=== PATIENT | female | born 1990 | race Caucasian/White ===

== ENCOUNTER 2018-10-24 10:25 | Outpatient (CLI) | payer OTHER, SELFPAY ==
[2015-05-11 02:33] VITALS: BMI 33.5
[2018-10-24 10:53] VITALS: BMI 40.6
[2018-10-24] MEDS: Lactated Ringers 1,000 ML 500 ML IV (11:30)
[2018-10-24 11:36] LABS: Hematocrit 33.7 % (37-47); Hemoglobin 11.3 g/dl (12.0-15.0); Mean Corp Hgb Conc 33.5 g/gl (32-36); Mean Corpuscular Hgb 31.6 pg (27.0-32.0); Mean Corpuscular Volume 94.1 fL (81-99); Mean Platelet Vol. 11.8 fl (6.2-12.0); Platelet Count 142 K/mm3 (150-450); Red Blood Count 3.58 M/mm3 (4.2-5.4)
[2018-10-24 11:38] LABS: Scan Indicated on CBC? Y/N NO
[2018-10-24 11:39] LABS: Protein, Urine (Random) 6.6 mg/dL (<11.9); Protein:Creat Ratio 180 mg/g CRE (0-200)
[2018-10-24 11:48] LABS: Prothrombin Time (Protime)PT. 12.9 SECONDS (11.7-14.9)
[2018-10-24] MEDS: Metoclopramide 10 MG/2 ML Vial IV (11:54)
[2018-10-24] MEDS: DiphenhydrAMINE 50 MG/ML Syringe 25 MG IV (11:54)
[2018-10-24 11:55] LABS: AST(SGOT) 15 U/L (15-37); Alanine Aminotransfer ALT/SGPT 16 U/L (13-56); Creatinine, Serum 0.48 mg/dL (0.55-1.02); EST Glomerular Filtration Rate 161 mL/min (>60); Est Glom Filt Rate - Afr Amer 194 mL/min (>60); Estimated Creatinine Clearance 149.33 ml/min
--- NOTE | 2018-10-24 12:48 | OB.TRI.NOTE ---
- Problem List (1) Headache Status: Acute History of Present Illness Date of Service: 10/24/18 Was patient seen by the physician?: Yes Reason For Visit: Headache Date of Service: 10/24/18 Final NSEHA: 12/06/18 Gestational age: 33 Weeks and 6 Days History of Present Illness: Patient is a 28-year-old at 33 weeks gestation who presents from the office with a headache. She states the headache started yesterday. It is bilateral and across her posterior head, and she describes it as a throbbing pain. She has a history of chronic migraines, but she describes this headache as feeling different. The pain has been constant since the headache started yesterday, but the pain has been waxing and waning. She was given Benadryl and Reglan with some improvement in her BROWN, she now rates it a 4/10 and earlier it was a 10/10. She has sensitivity to light with her BROWN. She notes that she had an episode of nausea and vomiting earlier which has now resolved, and after the vomiting she had blurred vision. The blurred vision has now resolved and she denies any vision changes. She denies upper epigastric pain or right upper quadrant pain. No regular contractions, vaginal bleeding, loss of fluid. Good movement. She denies BP issues with her first . She states she has a hx of cHTN, and was on medication years ago for this but has been off of medication recently. Allergies acetaminophen [From Tylenol] Allergy (Verified 09/19/14 18:03) Shortness of breath ethinyl estradiol [From Ortho Tri-Cyclen (28)] Allergy (Verified 09/19/14 18:03) Hives meperidine HCl [From Demerol] Allergy (Verified 09/19/14 18:03) Hives milk Allergy (Verified 09/19/14 18:03) Nausea/Vom/Diarrhea morphine Allergy (Verified 09/19/14 18:03) Hives nitrofurantoin [From Macrobid] Allergy (Verified 09/19/14 18:03) Hives nitrofurantoin macrocrystalline [From Macrobid] Allergy (Verified 09/19/14 18:03) Hives norgestimate [From Ortho Tri-Cyclen (28)] Allergy (Verified 09/19/14 18:03) Hives oxycodone [Oxycodone] Allergy (Verified 09/19/14 18:03) Hives oxycodone HCl [From OxyContin] Allergy (Verified 09/19/14 18:03) Hives Sulfa (Sulfonamide Antibiotics) Allergy (Verified 09/19/14 18:03) Hives - Pertinent Past Medical History Medical History: Past Medical History (Last Updated 10/24/18 @ 20:28 by Scarlet Nagy DO) Anxiety Asthma Depression Migraines Hypertension Surgical History: Past Surgical History (Last Updated 10/24/18 @ 20:28 by Scarlet Nagy DO) H/O LEEP Laboratory Studies: Laboratory Tests 10/24/18 10/24/18 10/24/18 Range/Units 11:15 10:50 10:50 WBC 10.0 (4.4-11.0) K/mm3 RBC 3.58 L (4.2-5.4) M/mm3 Hgb 11.3 L (12.0-15.0) g/dl Hct 33.7 L (37-47) % MCV 94.1 (81-99) fL MCH 31.6 (27.0-32.0) pg MCHC 33.5 (32-36) g/gl RDW 13.0 (11.6-14.6) % RDW Differential 45.0 H (35.1-43.9) fl Plt Count 142 L (150-450) K/mm3 MPV 11.8 (6.2-12.0) fl Creatinine 0.48 L (0.55-1.02) mg/dL Estim Creat Clear Calc 149.33 ml/min Est GFR (MDRD) Af Amer 194 (>60) mL/min Est GFR (MDRD) Non-Af 161 (>60) mL/min Uric Acid 4.0 (2.6-6.0) mg/dL AST 15 (15-37) U/L ALT 16 (13-56) U/L U Random Total Protein 6.6 (<11.9) mg/dL Urine Creatinine 36.70 (NO RANGE EST.) mg/dL Protein/Creatinin Ratio 180 (0-200) mg/g CRE Review of Systems Eyes: Denies: Blurred vision HEENT: Reports: Head Aches Gastrointestinal: Denies: Abdominal Pain, Nausea, Vomiting Neurological: Denies: Blurred vision, Double vision Physical Exam General: No apparent distress, Well developed, Well nourished HEENT: Atraumatic Lungs: - - No increased resp effort Abdomen: Soft, Non Tender, Gravid, - - No RUQ tenderness or epigastric tenderness Extremities:: No edema Neurological: Deep Tendon Reflexes 2+/4 and Symmetrical, Neuro grossly intact. Negative for: Clonus NST - FHR Rate Baby A FHR Category:: Category I Uterine Activity:: No regular ctx's Impression/Plan 33 wk gestation w/ complaint of a BRWON - Pre-e labs WNL except Plt's 142, p/c ratio WNL - BP's normal: 130's/80's - Will give Fioricet x 1 for BROWN. Mild improvement after Benadryl and Reglan. Hx of chronic BROWN's - Has appointment in 2 days. Will recheck BP at that time, and redraw pre-e labs to trend plt's - Collect 24 hr urine protein as well
[2018-10-24 12:52] LABS: Partial Thromboplast Time 26.6 Seconds (24.1-36.2)
[2018-10-24] MEDS: Acetaminophen/Butalbital/Caffe 1 Tablet PO (13:13)
--- OUTSIDE RECORDS SUMMARY | 2018-12-19 19:12 | XMS RPT_ITS ---
:1990 Author Organization OHIP Care Team Providers Name Role Phone SARA REVELES (ANAHI) Attending Unavailable SARA REVELES (OWENM) Referring Unavailable SARA REVELES (ANAHI) Referring Unavailable JUAN ALMENDAREZ Referring Unavailable PRISCILLA MCMILLAN (RD) Attending Unavailable JUAN ALMENDAREZ Referring Unavailable MICHAEL SMYTH (CNM) Attending Unavailable REVELES, SARA (CNM) Attending Unavailable REVELES, SARA (CNM) Referring Unavailable KELLEY, DAISHA A Attending Unavailable REVELES, SARA (CNM) Referring Unavailable REVELES, SARA (CNM) Attending Unavailable REVELES, SARA (CNM) Referring Unavailable REVELES, SARA (CNM) Attending Unavailable REVELES, SARA (CNM) Referring Unavailable KELLEY, DAISHA A Attending Unavailable REVELES, SARA (CNM) Referring Unavailable HAJA, MICHAEL (CNM) Attending Unavailable REVELES, SARA (CNM) Referring Unavailable REVELES, SARA (CNM) Attending Unavailable PODLOGSUE CARUSO (SR ACCOUNT EXECUTIVE) Attending Unavailable REVELES, SARA (CNM) Attending Unavailable REVELES, SARA (CNM) Referring Unavailable REVELES, SARA (CNM) Attending Unavailable REVELES, SARA (CNM) Referring Unavailable NEYHART VIDALES, CANDACE Attending Unavailable NEYPORFIRIOT SOBEIDA CANDACE Referring Unavailable REVELES, SARA (CNM) Attending Unavailable REVELES, SARA (CNM) Attending Unavailable HAJA, MICHAEL (CNM) Attending Unavailable HAJA, MICHAEL (CNM) Attending Unavailable REVELES, SARA (CNM) Attending Unavailable JUAN ALMENDAREZ Attending Unavailable JUAN ALMENDAREZ Referring Unavailable REVELES, SARA (CNM) Attending Unavailable REVELES, SARA (CNM) Attending Unavailable REVELES, SARA (CNM) Referring Unavailable HAJA, MICHAEL (CNM) Attending Unavailable Reveles, Sara Attending Unavailable Reveles, Sara Referring Unavailable Kiet Fagan Primary Care Unavailable Scarlet Nagy Attending Unavailable Scarlet Nagy Referring Unavailable Kiet Fagan Primary Care Unavailable PROVIDER, ED PHYSICIAN Attending Unavailable Kiet Fagan Primary Care Unavailable Abdirizak, Sara Referring Unavailable Kiet Fagan Primary Care Unavailable Dominick Caldwell Admitting Unavailable Dominick Caldwell Attending Unavailable PROBLEMS PROBLEMS DATE TYPE CONDITION / CODE ATTENDING STATUS SOURCE 10/30/2018 Unknown O64.1XX0 - Alejandro, Active [place] Obstructed labor Dominick [facility] due to breech Hospital presentation, not Repository applicable or unspecified / O64.1XX0(ICD-10) 10/30/2018 Unknown R51 - Headache / Reveles, Sara Active [place] R51(ICD-10) [facility] [place] 09/13/2018 Active 28 weeks NA Active [facility] gestation of [place] / Repository Z3A.28(ICD-10) 09/13/2018 Active Dizziness and NA Active [facility] giddiness / [place] R42(ICD-10) Repository 09/12/2018 Active 27 weeks NA Active [facility] gestation of [place] / Repository Z3A.27(ICD-10) 09/12/2018 Active Other specified NA Active [facility] related [place] conditions, third Repository trimester / O26.893(ICD-10) 09/12/2018 Active Headache / NA Active [facility] R51(ICD-10) [place] Repository 08/30/2018 Active 26 weeks NA Active [facility] gestation of [place] / Repository Z3A.26(ICD-10) 05/10/2018 Active 10 weeks SARA REVELES Active [facility] gestation of (CNM) [place] / Repository Z3A.10(ICD-10) 04/19/2018 Active Supervision of NA Active [facility] high risk [place] , Repository unspecified, first trimester / O09.91(ICD-10) 01/05/2018 Active Threatened NA Active [facility] / [place] O20.0(ICD-10) Repository 01/05/2018 Active Unknown / SARA REVELES Active [facility] UNK(Unknown) ([facility]) [place] Repository PROCEDURES PROCEDURES No Procedure Records FoundRESULTS RESULTS PROGRESS Observed: 11/09/2018 Status: COMPLETED Source: [place] 9:40 AM [facility] REPOSITORY HNO ID: [id number] Author: Michael ValdesJil Smyth Service: (none) Author Type: Discharge Specialist Type: Progress Notes Filed: 11/09/2018 3:18 PM Note Text: SUBJECTIVE: 28 year old female presents for 2 week exam. Patient currently taking Labetalol 100mg PO BID for Elevated blood pressure following IOL for severe pre-eclampsia at 34 weeks. Denies BROWN, scotoma, dizziness, or RUQ pain. Reports home monitoring of BPs on wrist cuff = 154/104 today. Outcome: PCS. Date delivered: 10/26/2018. Delivering M.D.: Dominick Caldwell M.D.. Delivered in what hospital? [facility] Lochia: Alba, Normal depression/mood: None Breast/bottle: Pumping. If , do you have any drainage or redness at incision site? No Do you have a fever? No Kelly Spicer Ma OBJECTIVE: Blood Pressures: 140/104, 149/101, 141/96, 144/96. TRUE BP = 145/99 HEENT: CN II-XII intact Neuro: +1/4 reflexes in Rt. LE, +2/4 reflexes in Lt. LE Abdomen: soft, non-tender, no masses, no hepatosplenomegaly and no lymphadenopathy Incision: Healed - no erythema, no pain to palpation PLAN: Consultation with Dr. Alejandro DAVISON re: this patient - will increase PO Labetalol to 100mg PO TID Patient to call over weekend if blood pressures by home monitoring continue to increase. Patient to call office early next week with list of blood pressures. If continued elevation - consider repeat BP nurse's visit to assess in person RTO for 6 week check otherwise I have reviewed and updated past medical and surgical history, medications and allergies. Michael Smyth APRN.CNM CNOV Observed: 11/09/2018 Status: COMPLETED Source: [place] 9:30 AM [facility] REPOSITORY Office Visit (WOOB) KARISSA DE LEON ([id number]) 1990 F Date Time Provider Department 11/09/18 9:30 AM MICHAEL SMYTH (ANAHI) WOOB During your visit today, we recorded the following information about you: Blood pressure Weight 144/96 96.2 kg Michael Smyth APRN.CNM 11/09/2018 3:18 PM Signed SUBJECTIVE: 28 year old female presents for 2 week exam. Patient currently taking Labetalol 100mg PO BID for Elevated blood pressure following IOL for severe pre-eclampsia at 34 weeks. Denies BROWN, scotoma, dizziness, or RUQ pain. Reports home monitoring of BPs on wrist cuff = 154/104 today. Outcome: PCS. Date delivered: 10/26/2018. Delivering M.D.: Dominick Caldwell M.D.. Delivered in what hospital? [facility] Lochia: Alba, Normal depression/mood: None Breast/bottle: Pumping. If , do you have any drainage or redness at incision site? No Do you have a fever? No Kelly Spicer Ma OBJECTIVE: Blood Pressures: 140/104, 149/101, 141/96, 144/96. TRUE BP = 145/99 HEENT: CN II-XII intact Neuro: +1/4 reflexes in Rt. LE, +2/4 reflexes in Lt. LE Abdomen: soft, non-tender, no masses, no hepatosplenomegaly and no lymphadenopathy Incision: Healed - no erythema, no pain to palpation PLAN: Consultation with Dr. Alejandro DAVISON re: this patient - will increase PO Labetalol to 100mg PO TID Patient to call over weekend if blood pressures by home monitoring continue to increase. Patient to call office early next week with list of blood pressures. If continued elevation - consider repeat BP nurse's visit to assess in person RTO for 6 week check otherwise I have reviewed and updated past medical and surgical history, medications and allergies. YANIRA Medrano APRN.CNM 11/09/2018 10:12 AM Signed Increase dose to Labetalol 100mg PO, 3 times daily. Call over weekend if blood pressures increase or if feeling symptomatic Call office early next week with an update on how blood pressures are Anticipate f/u visit at 6 weeks. Referring Provider: SELF [[id number]] Allergies As of Date: 11/09/2018 Noted Allergy Reaction AMOXICILLIN 06/12/2012 4 - Hives DEMEROL (MEPERIDINE (PF)) 06/12/2012 4 - Hives LATEX 07/25/2012 2 - Rash MACROBID (NITROFURANTOIN MONOHYD/*06/12/2012 4 - Hives 11 - Vomiting MORPHINE 06/12/2012 4 - Hives ORTHO TRI-CYCLEN (21) 06/12/2012 4 - Hives OXYCODONE 06/12/2012 4 - Hives SULFA (SULFONAMIDE ANTIBIOTICS) 06/12/2012 4 - Hives IMITREX (SUMATRIPTAN) 05/18/2015 14 - Other: See Comments Comments: Chest pain MILK 06/12/2012 8 - GI Upset 11 - Vomiting Date Reviewed: 11/09/2018 Reviewed by: Kelly Spicer Ma - Fully Assessed Reason for Visit: Care [85] Cmt: Incision check Primary Visit Diagnosis:Post-operative state [Z98.890] Other Visit Diagnosis: hypertension [O16.5] Order(s):labetalol (TRANDATE) 100 mg tabletTake 1 tablet by mouth three times daily.Disp: Rfl: Prescriptions as of 11/09/2018 Sig: ACETAMINOPHEN 500 MG TABLET Take 500 mg by mouth every 8 * IBUPROFEN 200 MG CAPSULE Take by mouth as directed. PROBIOTIC BLEND ORAL Take by mouth. LABETALOL 100 MG TABLET Take 1 tablet by mouth three * CLARITIN ORAL Take by mouth as needed. MAGNESIUM ORAL Take by mouth. VITS,CALCIUM 91-IRON* Take 1 tablet by mouth once d* BREAST PUMP As directed TUMS ORAL Take by mouth as needed. DHA ORAL Take by mouth once daily. OXYCODONE-ACETAMINOPHEN 5 MG-* Take 5-325 tablets by mouth. ORAL Take by mouth once daily. 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 Migraine with aura and without status migrainos*INVALID FOR* Mild intermittent asthma without complication [*INVALID FOR* Depression [F32.9] INVALID FOR* Obesity, Class I, BMI 30-34.9 [E66.9] INVALID FOR* History of depression [Z86.59] INVALID FOR* More... History of loop electrosurgical excision proced*INVALID FOR* More... History of hypertension [Z86.79] INVALID FOR* More... History of asthma [Z87.09] INVALID FOR* More... Family history of arrhythmia [Z82.49] INVALID FOR* More... More... History of spontaneous [Z87.59] INVALID FOR* More... History of therapeutic [Z92.89] INVALID FOR* More... Well adult exam [Z00.00] INVALID FOR* More... Other instructions from your clinician: Increase dose to Labetalol 100mg PO, 3 times daily. Call over weekend if blood pressures increase or if feeling symptomatic Call office early next week with an update on how blood pressures are Anticipate f/u visit at 6 weeks. Prescriptions ordered this encounter Disp Refills Start End LABETALOL 100 MG TABLET 11/09/2018 Class: Med Update Route: ORAL Sig: Take 1 tablet by mouth three times daily. Medications Discontinued During This Encounter labetalol (TRANDATE) 100 mg tablet 1 10/28/2018 11/09/2018 Class: Historical Med Route: ORAL Sig: Take 100 mg by mouth twice daily. Disc: Adjust Sig - Block E-Cancel Disposition: Return in about 4 weeks (around 12/07/2018), or if symptoms worsen or fail to improve. Follow-up and Disposition History Recorded Encounter Status:Closed by MICHAEL SMYTH CNM on 11/09/18 PROGRESS Observed: 10/31/2018 Status: COMPLETED Source: [place] 10:41 AM [facility] REPOSITORY O ID: [id number] Author: Sara Reveles Service: (none) Author Type: Discharge Specialist Type: Progress Notes Filed: 10/31/2018 12:21 PM Note Text: SUBJECTIVE: 28 year old female presents for 5 day visit for BP check. Baby is in the NICU at [facility]. Outcome: PCS. Date delivered: 10/26/2018. Delivering M.D.: Dominick Caldwell M.D.. Delivered in what hospital? [facility] Lochia: Alba, Normal depression/mood: None Breast/bottle: Breast and bottle feeding. If , do you have any drainage or redness at incision site? No Do you have a fever? No Kelly Spicer Ma OBJECTIVE: Abdomen: soft, non-tender, no masses, no hepatosplenomegaly and no lymphadenopathy Incision: Dressing dry and intact, no drainage. Extremities: BLE DTR +2/4, no edema, no clonus PLAN: RTO for evaluation of incision in 1 week and 6 week visit. Remove dressing in 2 days, this will be 7 days after C/S. Continue Labetolala 100mg PO BID. Consulted , reviewed asymptomatic, negative physical exam and current BP 142/92. Ok to continue at current dose. Reviewed Pre-e precautions with patient and when to call. She voiced understanding. I have reviewed and updated past medical and surgical history, medications and allergies. Sara Reveles APRN.CNM CNOV Observed: 10/31/2018 Status: COMPLETED Source: [place] 10:30 AM [facility] REPOSITORY Office Visit (WOOB) KARISSA DE LEON ([id number]) 1990 F Date Time Provider Department 10/31/18 10:30 AM SARA REVELES (ANAHI) WOOB During your visit today, we recorded the following information about you: Blood pressure Weight 142/92 99.8 kg Sara Reveles APRN.CNM 10/31/2018 12:21 PM Signed SUBJECTIVE: 28 year old female presents for 5 day visit for BP check. Baby is in the NICU at [facility]. Outcome: PCS. Date delivered: 10/26/2018. Delivering M.D.: Dominick Caldwell M.D.. Delivered in what hospital? [facility] Lochia: Alba, Normal depression/mood: None Breast/bottle: Breast and bottle feeding. If , do you have any drainage or redness at incision site? No Do you have a fever? No Kelly Spicer Ma OBJECTIVE: Abdomen: soft, non-tender, no masses, no hepatosplenomegaly and no lymphadenopathy Incision: Dressing dry and intact, no drainage. Extremities: BLE DTR +2/4, no edema, no clonus PLAN: RTO for evaluation of incision in 1 week and 6 week visit. Remove dressing in 2 days, this will be 7 days after C/S. Continue Labetolala 100mg PO BID. Consulted , reviewed asymptomatic, negative physical exam and current BP 142/92. Ok to continue at current dose. Reviewed Pre-e precautions with patient and when to call. She voiced understanding. I have reviewed and updated past medical and surgical history, medications and allergies. Sara Reveles APRN.ANAHI Referring Provider: SARA REVELES ([facility]) [[id number]] Allergies As of Date: 10/31/2018 Noted Allergy Reaction AMOXICILLIN 06/12/2012 4 - Hives DEMEROL (MEPERIDINE (PF)) 06/12/2012 4 - Hives LATEX 07/25/2012 2 - Rash MACROBID (NITROFURANTOIN MONOHYD/*06/12/2012 4 - Hives 11 - Vomiting MORPHINE 06/12/2012 4 - Hives ORTHO TRI-CYCLEN (21) 06/12/2012 4 - Hives OXYCODONE 06/12/2012 4 - Hives SULFA (SULFONAMIDE ANTIBIOTICS) 06/12/2012 4 - Hives IMITREX (SUMATRIPTAN) 05/18/2015 14 - Other: See Comments Comments: Chest pain MILK 06/12/2012 8 - GI Upset 11 - Vomiting Date Reviewed: 10/31/2018 Reviewed by: Kelly Spicer Ma - Fully Assessed Reason for Visit: Care [85] Cmt: Incision check Primary Visit Diagnosis:Pre-eclampsia, severe, delivered [O14.10] Other Visit Diagnoses:Single delivery by section [O82] delivery, delivered [O60.10X0] Prescriptions as of 10/31/2018 Sig: IBUPROFEN 200 MG CAPSULE Take by mouth as directed. LABETALOL 100 MG TABLET Take 100 mg by mouth twice da* OXYCODONE-ACETAMINOPHEN 5 MG-* Take 5-325 tablets by mouth. MAGNESIUM ORAL Take by mouth. CLARITIN ORAL Take by mouth as needed. PROBIOTIC BLEND ORAL Take by mouth. VITS,CALCIUM 91-IRON* Take 1 tablet by mouth once d* TUMS ORAL Take by mouth as needed. BREAST PUMP As directed ORAL Take by mouth once daily. DHA ORAL Take by mouth once daily. 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 Migraine with aura and without status migrainos*INVALID FOR* Mild intermittent asthma without complication [*INVALID FOR* Depression [F32.9] INVALID FOR* Obesity, Class I, BMI 30-34.9 [E66.9] INVALID FOR* History of depression [Z86.59] INVALID FOR* More... History of loop electrosurgical excision proced*INVALID FOR* More... History of hypertension [Z86.79] INVALID FOR* More... History of asthma [Z87.09] INVALID FOR* More... Family history of arrhythmia [Z82.49] INVALID FOR* More... More... History of spontaneous [Z87.59] INVALID FOR* More... History of therapeutic [Z92.89] INVALID FOR* More... Well adult exam [Z00.00] INVALID FOR* More... Disposition: Return in about 1 year (around 10/31/2019), or if symptoms worsen or fail to improve, for 1 week incision, 6wk visit. Follow-up and Disposition History Recorded Encounter Status:Closed by SARA REVELES on 10/31/18 PROGRESS Observed: 10/30/2018 Status: COMPLETED Source: [place] 2:48 PM [facility] REPOSITORY HNO ID: [id number] Author: Yamilka Parra LPN Service: (none) Author Type: (none) Type: Progress Notes Filed: 10/30/2018 2:54 PM Note Text: Pt delivered via C/S at [facility] on 10/26/[address] Caldwell and CHIKI. See OB Outcome note. Pt has post op appt 10/31/18. Yamilka Parra LPN HOSP Observed: 10/30/2018 Status: COMPLETED Source: [place] 12:00 AM [facility] REPOSITORY Patient Update (WOOB) KARISSA DE LEON ([id number]) 1990 F Date Time Provider Department 10/30/18 DOMINICK CALDWELL During your visit today, we recorded the following information about you: Yamilka Parra LPN 10/30/2018 2:54 PM Signed Pt delivered via C/S at [facility] on 10/26/[address] Newell. See OB Outcome note. Pt has post op appt 10/31/18. Yamilka Parra LPN Allergies As of Date: 10/30/2018 Noted Allergy Reaction AMOXICILLIN 06/12/2012 4 - Hives DEMEROL (MEPERIDINE (PF)) 06/12/2012 4 - Hives LATEX 07/25/2012 2 - Rash MACROBID (NITROFURANTOIN MONOHYD/*06/12/2012 4 - Hives 11 - Vomiting MORPHINE 06/12/2012 4 - Hives ORTHO TRI-CYCLEN (21) 06/12/2012 4 - Hives OXYCODONE 06/12/2012 4 - Hives SULFA (SULFONAMIDE ANTIBIOTICS) 06/12/2012 4 - Hives IMITREX (SUMATRIPTAN) 05/18/2015 14 - Other: See Comments Comments: Chest pain MILK 06/12/2012 8 - GI Upset 11 - Vomiting Date Reviewed: 10/24/2018 Reviewed by: Kelly Spicer Ma - Fully Assessed Prescriptions as of 10/30/2018 Sig: TUMS ORAL Take by mouth as needed. BREAST PUMP As directed MAGNESIUM ORAL Take by mouth. CLARITIN ORAL Take by mouth as needed. ORAL Take by mouth once daily. DHA ORAL Take by mouth once daily. ACETAMINOPHEN 500 MG TABLET Take 500 mg by mouth every 8 * PROBIOTIC BLEND ORAL Take by mouth. 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 Migraine with aura and without status migrainos*INVALID FOR* Mild intermittent asthma without complication [*INVALID FOR* Depression [F32.9] INVALID FOR* Obesity, Class I, BMI 30-34.9 [E66.9] INVALID FOR* History of depression [Z86.59] INVALID FOR* More... History of loop electrosurgical excision proced*INVALID FOR* More... History of hypertension [Z86.79] INVALID FOR* More... History of asthma [Z87.09] INVALID FOR* More... Family history of arrhythmia [Z82.49] INVALID FOR* More... More... History of spontaneous [Z87.59] INVALID FOR* More... History of therapeutic [Z92.89] INVALID FOR* More... Well adult exam [Z00.00] INVALID FOR* More... Encounter Status:Closed by YAMILKA PARRA LPN on 10/30/18 DISCHARGE SUMMARY Observed: 10/28/2018 Status: F Source: [place] 11:22 AM [facility] REPOSITORY [facility] Medical Records Department [address] [place] [address] Discharge Summary 10/28/18 1121 MR#: [id number] Acct: [id number] Name: KARISSA DE LEON Rep #: [id number] : 1990 28 From: Sara Reveles CNM PCP: Kiet Fagan DO Status: ADM IN Location: [id number] Discharge Date and Diagnosis - Problem List Patient Problems: Active and Suspected Problems (Last Updated 10/24/18 @ 20:28 by Scarlet Nagy DO) Delivery by section for breech presentation (Acute) Hypertension affecting in third trimester (Acute) Loss of peripheral visual field (Acute) Preeclampsia, severe (Acute) Date of Admission: 10/26/18 Date of Discharge: 10/28/18 - Primary Discharge Diagnosis Active and Suspected Problems (Last Updated 10/24/18 @ 20:28 by Scarlet Nagy DO) Delivery by section for breech presentation (Acute) Hypertension affecting in third trimester (Acute) Loss of peripheral visual field (Acute) Preeclampsia, severe (Acute) Hospital Course and Treatment Operations: - - Section Summary of Care Provided: The patient is a 28 year old F [] Patient Problems: Active and Suspected Problems (Last Updated 10/24/18 @ 20:28 by Scarlet Nagy DO) Delivery by section for breech presentation (Acute) Hypertension affecting in third trimester (Acute) Loss of peripheral visual field (Acute) Preeclampsia, severe (Acute) - Physical Exam Vital Signs Temp Pulse Resp BP Pulse Ox 97.4 F L 69 18 150/88 H 97 10/28/18 08:22 10/28/18 11:17 10/28/18 08:22 10/28/18 11:17 10/28/18 08:22 Oxygen Delivery Method Room Air Weight: 233 lb 11.04 oz Body Mass Index (BMI) 40.1 Intake and Output for Last 24 Hours Intake Total 1515 / 1515 1444 / 1444 Output Total 800 / 800 5200 / 5200 600 / 600 Balance 715 / 715 -3756 / -3756 -600 / -600 Microbiology Past 72 Hours 10/26/18 Unknown Group B Streptococcus Culture - Preliminary Genital vaginal Discharge Diet: No Restrictions Discharge Activity: May not drive while taking narcotic pain medications., May Shower May resume sexual activity in: 4-6 weeks Weight Bearing Status: Full weight bearing Call your doctor if your incision/area has: Continuous Slow Oozing, Sudden Increased Bleeding, Increased Pain/ Swelling, Increased Redness, Foul Smelling Discharge, Swelling at the incision site Call your doctor if you observe: Fever of 101 or Higher, Coldness, Increased Pain, Inability to urinate, Inability to have a bowel movement, Using more than one pad per hour, Shortness of breath, Chest pain, Increased palpitations (irregular heartbeat), Calf discomfort, Uncontrolled pain Remove Dressing in (days):: 5 Home Medications: Medications to take at Discharge Vits [Prenatabs FA ] 1 tablet PO DAILY 10/24/18 Labetalol [Trandate (Beta Yudy)] 100 mg PO BID 30 Days #60 tablet 10/28/18 Oxycodone [Oxyir] 5 - 10 mg PO Q4H PRN PRN 7 Days #30 tab 10/28/18 Following Prescrptions Were Given to Patient: Oxycodone [Oxyir] 5 - 10 mg PO Q4H PRN PRN 7 Days #30 tab PRN Reason: Mod-Severe Pain (-09/05) Labetalol [Trandate (Beta Yudy)] 100 mg PO BID 30 Days #60 tablet Primary Care Physician: Kiet Fagan DO [Primary Care Provider] - Please Follow Up With: Dominick Caldwell MD Patient Instructions: After a Medical Necessity - Tobacco Use Smoking Status: Never smoker Meaningful Use Info Meaningful Use Diagnoses (Choose all that apply): None applicable 10/28/18 1122 <Electronically signed by Sara Reveles CNM> Date Sara Reveles CNM Cosigner Signature (if applicable): Date CC: ANAHI Fagan DO Signed DISCHARGE INSTRUCTION Observed: 10/28/2018 Status: F Source: [place] 11:21 AM [facility] REPOSITORY [facility] Medical Records Department [address] [place] [address] Instructions for Home/Discharge Instructions 10/28/18 1118 MR#: [id number] Acct: [id number] Name: KARISSA DE LEON Rep #: [id number] : 1990 28 From: Sara Reveles CNM PCP: Kiet Fagan DO Status: ADM IN Discharge Diet: No Restrictions Discharge Activity: May not drive while taking narcotic pain medications., May Shower May resume sexual activity in: 4-6 weeks Weight Bearing Status: Full weight bearing Lifting Restrictions: less than 20lbs Call your doctor if your incision/area has: Continuous Slow Oozing, Sudden Increased Bleeding, Increased Pain/ Swelling, Increased Redness, Foul Smelling Discharge, Swelling at the incision site Call your doctor if you observe: Fever of 101 or Higher, Coldness, Increased Pain, Inability to urinate, Inability to have a bowel movement, Using more than one pad per hour, Shortness of breath, Chest pain, Increased palpitations (irregular heartbeat), Calf discomfort, Uncontrolled pain Remove Dressing in (days):: 5 Instructions: After a Additional Instructions: If you experience any of the following, contact your healthcare provider. * Bleeding that soaks a pad every hour for 2 hours * Fever 100.4 or higher * Unrelieved incision or abdominal pain * Swelling, redness, discharge or bleeding from your incision or episiotomy site * Your incision begins to separate * Problems urinating (including inability to urinate or burning while urinating). * Visual changes * Severe headache * Flu-like symptoms * Pain or redness in one of both of your breasts * Pain, warmth, tenderness or swelling in your legs, especially the calf area * Frequent nausea and vomiting * Symptoms of depression or anxiety If you experience any of the following, call 911 or go to the nearest Emergency Room. * Chest pain * Problems breathing * Seizure activity * Partial or complete paralysis of a body part, slurred speech, weakness or drooping of the face, or a sudden inability to walk or hold your balance Allergies/Adverse Reactions: Allergies acetaminophen [From Tylenol] Allergy (Verified 10/26/18 11:01) Shortness of breath ethinyl estradiol [From Ortho Tri-Cyclen (28)] Allergy (Verified 10/26/18 11:01) Hives meperidine HCl [From Demerol] Allergy (Verified 10/26/18 11:01) Hives milk Allergy (Verified 10/26/18 11:01) Nausea/Vom/Diarrhea morphine Allergy (Verified 10/26/18 11:01) Hives nitrofurantoin [From Macrobid] Allergy (Verified 10/26/18 11:01) Hives nitrofurantoin macrocrystalline [From Macrobid] Allergy (Verified 10/26/18 11:01) Hives norgestimate [From Ortho Tri-Cyclen (28)] Allergy (Verified 10/26/18 11:01) Hives oxycodone [Oxycodone] Allergy (Verified 10/26/18 11:01) Hives oxycodone HCl [From OxyContin] Allergy (Verified 10/26/18 11:01) Hives Sulfa (Sulfonamide Antibiotics) Allergy (Verified 10/26/18 11:01) Hives Medications to take at Discharge Vits [Prenatabs FA ] 1 tablet PO DAILY 10/24/18 Labetalol [Trandate (Beta Yudy)] 100 mg PO BID 30 Days #60 tablet 10/28/18 Oxycodone [Oxyir] 5 - 10 mg PO Q4H PRN PRN 7 Days #30 tab 10/28/18 The following prescriptions were given: Oxycodone [Oxyir] 5 - 10 mg PO Q4H PRN PRN 7 Days #30 tab PRN Reason: Mod-Severe Pain (4-10/10) Labetalol [Trandate (Beta Yudy)] 100 mg PO BID 30 Days #60 tablet Follow-Up: Call to make an appointment with your doctor for BP check in 3 days, an incision check in 1-2 weeks. You will also need a 6 week post- follow up appointment. Test results from this visit will be discussed in further detail at your follow-up appointment, if applicable. Please Follow Up With: Dominick Caldwell MD Primary Care Physician: Kiet Fagan DO [Primary Care Provider] - 10/28/18 1121 <Electronically signed by Sara Reveles CNM> Date Sara Reveles [facility] CC: Kiet Fagan DO CBC-COMPLETE BLOOD CNT Collected: 10/27/2018 Status: F Source: [place] NO DIFF 5:15 AM [facility] REPOSITORY Order Comment: Comments: Day #1 Reason for Laboratory Test TYPE CODE TESTS RESULT OUT OF RANGE REFERENCE UNITS LAB L100.1000 4.4-11.0 K/mm3 High WBC 20.6 LAB L100.1200 4.2-5.4 M/mm3 Low RBC 3.08 LAB L100.1300 12.0-15.0 g/dl Low HGB 10.1 LAB L100.1400 37-47 % Low HCT 29.9 LAB L100.1500 81-99 fL Normal MCV 97.1 LAB L100.1600 27.0-32.0 pg High MCH 32.8 LAB L100.1700 32-36 g/gl Normal MCHC 33.8 LAB L100.1810 11.6-14.6 % Normal RDW CV 12.9 LAB L100.1820 35.1-43.9 fl Normal RDW SD 43.1 LAB L100.1900 150-450 K/mm3 Normal PLT 162 LAB L100.2000 6.2-12.0 fl Normal MPV 11.4 Performed By: #### L100.0500 #### [facility] [address] [place], [address] OPERATIVE REPORT Observed: 10/26/2018 Status: F Source: [place] 7:42 PM [facility] REPOSITORY [facility] Medical Records Department [address] [place] [address] Operative Report 10/26/18 1937 MR#: [id number] Acct: [id number] Name: KARISSA DE LEON Rep #: [id number] : 1990 28 From: Dominick Caldwell MD PCP: Kiet Fagan DO Status: ADM IN Location: [id number] Delivery Classification: DAVID Final SNEHA: 12/06/18 Gestational age: 34 Weeks and 1 Days Indications for : Breech, - - Preeclampsia with severe features Description of Procedure: Preoperative diagnosis: 34-week intrauterine , breech presentation, preeclampsia with severe features Postoperative diagnoses: Same Surgeon: Dominick Caldwell MD Hand Woodworking Sander:Iman MONET Anesthesia- Spinal- Iman Grossman MD complications- None The patient was taken to the operating room. She was prepped and draped in the dorsal supine position with a leftward tilt. A Pfannenstiel skin incision was made approximately 2 cm above the symphysis pubis and carried through to underlying layer fascia with the scalpel. The fascia was incised incised in the midline and extended laterally with the Haines scissors. The fascia was dissected off the rectus muscles with blunt and sharp dissection. The rectus muscles were in the midline and the peritoneum was entered sharply. The peritoneal incision was stretched and the bladder blade was placed. The uterine incision was made in a low transverse fashion with the scalpel and extended superiorly and inferiorly with blunt dissection. The amniotic membranes were ruptured bluntly and clear amniotic fluid returned. The 's breech was brought to the incision and delivered. The was turned to back up and the legs were swept out individually and then the arms. The head was then delivered in a flexed position with fundal pressure in the standard fashion very easily and in less than 15 seconds without difficulty. The loose nuchal cord was then reduced. The mouth and nares were bulb suctioned. The cord was clamped and cut as the infant was stimulated. Cord clamping was delayed. The infant was handed off to the waiting nursing staff. The placenta was delivered with fundal massage and gentle traction in the standard fashion. The uterus was exteriorized and cleared of all clots and debris. The cervix was dilated with a ring forcep. The uterine incision was closed with #1 Vicryl in a running locked fashion. A second layer of the same suture was used in an imbricating fashion. The incision was examined and was found to be hemostatic. The uterus was placed back into the peritoneal cavity and hemostasis was again confirmed. The rectus muscles were examined and any bleeding was Bovie cauterized. The parietal peritoneum was closed with 3-0 Vicryl suture. The rectus muscles were closed with an 0 Vicryl running suture. The surgical teams outer gloves were then changed. The rectus fascia was examined and any bleeding was Bovie cauterized and the rectus fascia was closed with #1 PDS suture in a running standard fashion. The subcutaneous tissue was examining and any bleeding was Bovie cauterized. The subcutaneous tissue was reapproximated with 3-0 Vicryl suture. The skin was closed in a subcuticular fashion with Monocryl suture. I performed the entire procedure with assistance. All sponge, lap, and needle counts were correct. The patient was taken to her room for recovery in a stable condition. Amniotic Membrane Rupture Type: Artificial Amniotic Fluid Description: Clear Placenta Disposition: Sent with transport team Drain: [place] to straight drain Fluids Replaced: LR Cord Entanglement: Around neck x 1, loose Nuchal Cord Compression: Without compression Cord Vessel Description: 3 Vessels Esitmated Blood Loss (ml): 600 Infant Gender: Female (1 minute): 8 (5 minute): 8 Delayed cord clamping: Yes Pre-op Antibiotic Given: Ancef 2 grams IV x1 Complications: None - Admit VTE Documentation VTE Present on Admission: No VTE Mechan Device Prophylaxis: SCD's VTE Pharm Prophylaxis ordered?: Yes 10/26/181941 <Electronically signed by Dominick Caldwell MD> Date Dominick Caldwell MD CC: ANAHI Reveles; Kiet Fagan DO; Dominick Caldwell MD Signed HISTORY AND PHYSICAL Observed: 10/26/2018 Status: F Source: [place] EXAM 6:26 PM [facility] REPOSITORY [facility] Medical Records Department [address] [place] [address] History and Physical 10/26/18 1816 MR#: [id number] Acct: [id number] Name: KARISSA DE LEON Rep #: [id number] : 1990 28 From: Dominick Caldwell MD PCP: Kiet Fagan DO Status: ADM IN Y Location: IC563-4 History Date of Admission: 10/26/18 Final SNEHA: 12/06/18 Final SNEHA Source: US <20 weeks Gestational age: 34 Weeks and 1 Days History of this : This is a 28 year-old, G [], P [], at 34 weeks gestational age. Medical History: Medical History (Last Updated 10/24/18 @ 20:28 by Scarlet Nagy DO) Anxiety F41.9 Asthma J45.909 Depression F32.9 Migraines G43.909 Hypertension I10 Surgical History: Surgical History (Last Updated 10/24/18 @ 20:28 by Scarlet Nagy DO) H/O LEEP Z98.890 Allergies acetaminophen [From Tylenol] Allergy (Verified 10/26/18 11:01) Shortness of breath ethinyl estradiol [From Ortho Tri-Cyclen (28)] Allergy (Verified 10/26/18 11:01) Hives meperidine HCl [From Demerol] Allergy (Verified 10/26/18 11:01) Hives milk Allergy (Verified 10/26/18 11:01) Nausea/Vom/Diarrhea morphine Allergy (Verified 10/26/18 11:01) Hives nitrofurantoin [From Macrobid] Allergy (Verified 10/26/18 11:01) Hives nitrofurantoin macrocrystalline [From Macrobid] Allergy (Verified 10/26/18 11:01) Hives norgestimate [From Ortho Tri-Cyclen (28)] Allergy (Verified 10/26/18 11:01) Hives oxycodone [Oxycodone] Allergy (Verified 10/26/18 11:01) Hives oxycodone HCl [From OxyContin] Allergy (Verified 10/26/18 11:01) Hives Sulfa (Sulfonamide Antibiotics) Allergy (Verified 10/26/18 11:01) Hives Home Medications: Home Medications Aspirin [Aspirin, Baby] 81 mg PO DAILY@0800 10/24/18 Loratadine/Pseudo 240/10 [Claritin-D 24 Hr] 1 tablet PO DAILY 10/24/18 Magnesium Oxide [Magnesium] 400 mg PO DAILY 10/24/18 Vits [Prenatabs FA] 1 tablet PO DAILY 10/24/18 Smoking Status: Never smoker Alcohol: None Substance Use Type: Alcohol Number of Fetus(es): 1 Heart Tracing: Normal baseline, moderate variability, some accelerations. No recurrent decelerations TOCO Analysis: No regular contractions History Past Pregnancies: Past Pregnancies Delivery Name GA/Weeks Outcome Route WeiInfant GeLabor LenAnesthesiDelivery Provider FOB Date ght [facility]der [facility] a Location Review of Systems Constitutional: Denies: Chills, Fever Eyes: Denies: Blurred vision HEENT: Denies: Difficulty Hearing Cardiovascular: Reports: Edema. Denies: Chest Pain, Chest Pressure, Chest Tightness Respiratory: Denies: Shortness of Breath Gastrointestinal: Denies: Abdominal Pain Genitourinary: Denies: Dysuria Skin: Denies: Rash Neurological: Reports: Headaches - Severe x 4 days, worse this am to the point she came to ED. Better after dilauded but now back and so severe she is shaking., - - + for change in vision Physical Exam General: Alert, Cooperative, - - uncomfortable HEENT: PERRLA Cardiovascular: Regular rate Lungs: Clear to auscultation, Normal air movement Abdomen: Soft, Non Tender, Gravid, Appropriate for Gestational Age Extremities:: Deep tendon reflexes - 4+, 4 beats of clonus, Other - edema 2+ LE Estimated gestational size: Appropriate for gestational size Presentation: Cephalic Assessment/Plan All Active Problems (Last Updated 10/24/18 @ 20:28 by Scarlet Nagy DO) Headache (Acute) Hypertension affecting in third trimester (Acute) Loss of peripheral visual field (Acute) This is a 28 year-old, @ 34 1/7 weeks gestation w/ preeclampsia w/ severe features On magnesium Upon presentation in the ER, there was a question as to whether her pressures were reaction to the anxiety and pain from her headache and she was having an atypical migraine or an acute neurological issue. However, her CAT scan is negative for acute intracranial issues. Her blood pressures remain persistently elevated even after treatment of her headache. She was initiated on magnesium prophylaxis for diagnosis of preeclampsia with severe features. Her laboratory studies are normal and stable other than some mild thrombocytopenia. At this point, her reflexes have gotten more hyperreflexic and she has significant clonus. In addition, her headache has rebounded and is as bad or worse than it was before the IV Dilaudid. In addition, her blood pressure is labile. A brief ultrasound was done which reveals that the fetus is breech. I discussed with her and her partner risk benefits and alternatives to attempted external cephalic version and induction of labor versus primary section. With the severity of her symptoms, I recommended expediting delivery. In addition we discussed that if she had a version and then induction, that the fetus did not tolerate prolonged induction. In addition, there is a chance that the fetus can convert back to breech. After this discussion, patient desires section. Consent was signed. Anesthesia is aware of the situation. At this point her blood pressures are stable enough she does not need any IV antihypertensives, but will need to follow this and likely be on oral antihypertensive postoperatively. Continue magnesium prophylaxis postoperatively. Special care nursery team was alerted. Patient did receive 1 dose of betamethasone earlier today. 10/26/18 1826 <Electronically signed by Dominick Caldwell MD> Date Dominick Caldwell MD Cosigner Signature: Date (if applicable) CC: Kiet Fagan DO; Dominick Caldwell MD Signed CBC-COMPLETE BLOOD CNT Collected: 10/26/2018 Status: F Source: [place] NO DIFF 4:49 PM [facility] REPOSITORY TYPE CODE TESTS RESULT OUT OF RANGE REFERENCE UNITS LAB L100.1000 4.4-11.0 K/mm3 High WBC 13.2 LAB L100.1200 4.2-5.4 M/mm3 Low RBC 3.47 LAB L100.1300 12.0-15.0 g/dl Low HGB 11.0 LAB L100.1400 37-47 % Low HCT 33.0 LAB L100.1500 81-99 fL Normal MCV 95.1 LAB L100.1600 27.0-32.0 pg Normal MCH 31.7 LAB L100.1700 32-36 g/gl Normal MCHC 33.3 LAB L100.1810 11.6-14.6 % Normal RDW CV 13.3 LAB L100.1820 35.1-43.9 fl High RDW SD 45.6 LAB L100.1900 150-450 K/mm3 Low PLT 136 LAB L100.2000 6.2-12.0 fl Normal MPV 11.7 Performed By: #### L100.0500 #### [facility] [address] [place], [place], [address] GROUP B STREP DNA Collected: 10/26/2018 Status: F Source: [place] BY PCR 3:55 PM [facility] REPOSITORY TYPE CODE TESTS RESULT OUT OF RANGE REFERENCE UNITS LAB L8200.0100 Negative Normal GBS TEST Negative RESULT Performed By: #### L8200.0000 #### [facility] [address] [place], [address] TYPE AND SCREEN Collected: 10/26/2018 Status: F Source: [place] 2:10 PM [facility] REPOSITORY Order Comment: Reason for Type AND Screen/Red Cells: ROUTINE TYPE CODE TESTS RESULT OUT OF RANGE REFERENCE UNITS LAB B10.0800 A Normal BLOOD TYPE GEL POSITIVE LAB B100.4000 Normal Antibody NEGATIVE Screen Performed By: #### B101.7450 #### [facility] [address] [facility] [place], [place], [address] BRAIN/HEAD WITHOUT Observed: 10/26/2018 Status: F Source: [place] CONTRAST 1:47 PM [facility] REPOSITORY [facility] Imaging Services [address] [place] [address] Brain/Head without Contrast MR#: [id number] Acct: [id number] Name: KARISSA DE LEON Rep #: [id number] : 1990 F 28 From: Jerilyn Pérez MD PCP: Kiet Fagan DO Status: ADM IN Study: Brain/Head without Contrast Date of Exam: 10/26/18 Exam# [id number] Ordering Dr: Dominick Caldwell MD STUDY: CT BRAIN WITHOUT CONTRAST REASON FOR EXAM: Female, 28 years old. Headache RADIATION DOSAGE (If Supplied By Facility): CTDIvol = ( 16.81 ) mGy, DLP = ( 975.86 ) mGycm TECHNIQUE: Transaxial CT imaging of the brain was performed without administration of intravenous contrast material. Individualized dose optimization techniques were used for this CT. COMPARISON: None. FINDINGS: The soft tissues are unremarkable. The osseous structures are unremarkable. Normal size ventricles and extra-axial spaces for the patient's age. The white matter tracts are unremarkable. The basal ganglia and thalami are unremarkable. No abnormalities are seen in the brainstem. The cerebellum is unremarkable. There is no intracranial hemorrhage. There are no findings of acute ischemia. The visualized sinuses are unremarkable. CT/Brain/Head without Contrast IMPRESSION: No acute intracranial abnormalities. Electronically Signed: Jerilyn Pérez MD at 17:14 EST Tel Direct: [phone], Service support , CC: Kiet Fagan DO; Dominick Caldwell MD Rn Surgical: Signed CBC-COMPLETE BLOOD CNT Collected: 10/26/2018 Status: F Source: [place] NO DIFF 12:25 PM [facility] REPOSITORY TYPE CODE TESTS RESULT OUT OF RANGE REFERENCE UNITS LAB L100.1000 4.4-11.0 K/mm3 High WBC 11.4 LAB L100.1200 4.2-5.4 M/mm3 Low RBC 3.65 LAB L100.1300 12.0-15.0 g/dl Low HGB 11.8 LAB L100.1400 37-47 % Low HCT 34.9 LAB L100.1500 81-99 fL Normal MCV 95.6 LAB L100.1600 27.0-32.0 pg High MCH 32.3 LAB L100.1700 32-36 g/gl Normal MCHC 33.8 LAB L100.1810 11.6-14.6 % Normal RDW CV 13.0 LAB L100.1820 35.1-43.9 fl Normal RDW SD 43.1 LAB L100.1900 150-450 K/mm3 Low PLT 135 LAB L100.2000 6.2-12.0 fl Normal MPV 11.9 Performed By: #### L100.0500, L501.1105, L501.1400, L501.4100, L501.4405 #### [facility] [address] [place], [address] SERUM CREATININE AND Collected: 10/26/2018 Status: F Source: [place] GFR 12:25 PM [facility] REPOSITORY TYPE CODE TESTS RESULT OUT OF RANGE REFERENCE UNITS LAB L501.1100 0.55-1.02 mg/dL Low 0.42 CREAT,SERUM Result Comment: The validity of the calculated GFR AND GFRAA in patients over 70 years has not been determined. Clinical correlation is essential. LAB L501.1110 >60 mL/min Normal EST GFR 189 Result Comment: Non- GFR Calc LAB L501.1115 >60 mL/min Normal EST GFR - AA 228 Result Comment: GFR Calc LAB L501.1255 ml/min Normal Estimated CRCL 170.67 Performed By: #### L100.0500, L501.1105, L501.1400, L501.4100, L501.4405 #### [facility] [address] [place], [place], [address] URIC ACID Collected: 10/26/2018 Status: F Source: [place] 12:25 PM [facility] REPOSITORY TYPE CODE TESTS RESULT OUT OF RANGE REFERENCE UNITS LAB L501.1400 2.6-6.0 mg/dL Normal URIC 3.8 Result Comment: The drugs N-Acetylcysteine and Metamizole may falsely depress this assay. Performed By: #### L100.0500, L501.1105, L501.1400, L501.4100, L501.4405 #### [facility] [address] [place], [place], [id number] AST(SGOT) Collected: 10/26/2018 Status: F Source: [place] 12:25 PM [facility] REPOSITORY TYPE CODE TESTS RESULT OUT OF RANGE REFERENCE UNITS LAB L501.4100 15-37 U/L Normal AST 18 Performed By: #### L100.0500, L501.1105, L501.1400, L501.4100, L501.4405 #### [facility] [address] [place], [address] ALANINE AMINOTRANSFERAS Collected: 10/26/2018 Status: F Source: [place] (SGPT) 12:25 PM [facility] REPOSITORY TYPE CODE TESTS RESULT OUT OF RANGE REFERENCE UNITS LAB L501.4405 13-56 U/L Normal ALT 19 Performed By: #### L100.0500, L501.1105, L501.1400, L501.4100, L501.4405 #### [facility] [address] [place], [address] PROTHROMBIN TIME W/INR Collected: 10/26/2018 Status: F Source: [place] 12:25 PM [facility] REPOSITORY TYPE CODE TESTS RESULT OUT OF RANGE REFERENCE UNITS LAB L300.4150 11.7-14.9 SECONDS Normal PROTIME 12.8 LAB L300.4200 Normal INR 1.0 Performed By: #### L300.3900, L300.4310 #### [facility] [address] [place], [address] PARTIAL THROMBOPLAST Collected: 10/26/2018 Status: F Source: [place] TIME 12:25 PM [facility] REPOSITORY TYPE CODE TESTS RESULT OUT OF RANGE REFERENCE UNITS LAB L300.4310 24.1-36.2 Seconds Normal PTT 24.8 Performed By: #### L300.3900, L300.4310 #### [facility] [address] [place], [address] PROTEIN+CREATININE Collected: Status: F Source: [place] RATIO,URINE 10/26/2018 12:17 PM [facility] REPOSITORY TYPE CODE TESTS RESULT OUT OF RANGE REFERENCE UNITS LAB L501.1200 NO RANGE EST. mg/dL Normal UR CREAT 30.30 LAB L501.1930 <11.9 mg/dL Normal 7.3 PROTEIN,UR.R AN. LAB L501.1940 0-200 mg/g CRE High PROT:CRE 241 RATIO Performed By: #### L501.0900 #### [facility] [address] [place], [address] Observed: 10/26/2018 Status: F Source: [place] CULTURE, GROUP B 12:00 AM [facility] STREPTOCOCCUS REPOSITORY RUBEN Culture Group B Beta Streptococcus is not isolated. Performed By: #### M100.1800 #### [facility] [address] [place], [address] PROTEIN, URINE 24HR Collected: 10/25/2018 Status: F Source: [place] 12:02 PM [facility] REPOSITORY TYPE CODE TESTS RESULT OUT OF RANGE REFERENCE UNITS LAB L501.1850 24.0 HOURS 24.0 Normal UR COLLECT TIME LAB L501.1875 mL 4100 Normal UR TOTAL VOLUME LAB L501.1900 <11.9 mg/dL < 6.0 Normal URINE PROTEIN LAB L501.1925 <150 MG/24HR mg/24HR Test Normal 24hr UR not performed PROTEIN Performed By: #### L500.9000, L502.000 #### [facility] [address] [facility] [id number] 24 HR URINE CREATININE Collected: 10/25/2018 Status: F Source: [place] 12:02 PM [facility] REPOSITORY TYPE CODE TESTS RESULT OUT OF RANGE REFERENCE UNITS LAB L502.0100 24.0 HOURS Normal UR COLLECT 24.0 TIME LAB L502.0200 L Normal UR TOTAL 4.10 VOLUME LAB L502.0300 NO RANGE EST. mg/dL Normal URINE CREAT 35.60 LAB L502.0400 0.70-1.90 g/24 HR Normal UR.CREAT/24hr 1.46 Performed By: #### L500.9000, L502.000 #### [facility] [address] [facility] [id number] PROTEIN+CREATININE Collected: Status: F Source: [place] RATIO,URINE 10/24/2018 11:15 AM [facility] REPOSITORY TYPE CODE TESTS RESULT OUT OF RANGE REFERENCE UNITS LAB L501.1200 NO RANGE EST. mg/dL Normal UR CREAT 36.70 LAB L501.1930 <11.9 mg/dL Normal 6.6 PROTEIN,UR.R AN. LAB L501.1940 0-200 mg/g CRE Normal PROT:CRE 180 RATIO Performed By: #### L501.0900 #### [facility] [address] [facility] [id number] CBC-COMPLETE BLOOD CNT Collected: 10/24/2018 Status: F Source: [place] NO DIFF 10:50 AM [facility] REPOSITORY TYPE CODE TESTS RESULT OUT OF RANGE REFERENCE UNITS LAB L100.1000 4.4-11.0 K/mm3 Normal WBC 10.0 LAB L100.1200 4.2-5.4 M/mm3 Low RBC 3.58 LAB L100.1300 12.0-15.0 g/dl Low HGB 11.3 LAB L100.1400 37-47 % Low HCT 33.7 LAB L100.1500 81-99 fL Normal MCV 94.1 LAB L100.1600 27.0-32.0 pg Normal MCH 31.6 LAB L100.1700 32-36 g/gl Normal MCHC 33.5 LAB L100.1810 11.6-14.6 % Normal RDW CV 13.0 LAB L100.1820 35.1-43.9 fl High RDW SD 45.0 LAB L100.1900 150-450 K/mm3 Low PLT 142 LAB L100.2000 6.2-12.0 fl Normal MPV 11.8 Performed By: #### L100.0500 #### [facility] [address] [place], [place], [id number] SERUM CREATININE AND Collected: 10/24/2018 Status: F Source: [place] GFR 10:50 AM [facility] REPOSITORY TYPE CODE TESTS RESULT OUT OF RANGE REFERENCE UNITS LAB L501.1100 0.55-1.02 mg/dL Low 0.48 CREAT,SERUM Result Comment: The validity of the calculated GFR AND GFRAA in patients over 70 years has not been determined. Clinical correlation is essential. LAB L501.1110 >60 mL/min Normal EST GFR 161 Result Comment: Non- GFR Calc LAB L501.1115 >60 mL/min Normal EST GFR - AA 194 Result Comment: GFR Calc LAB L501.1255 ml/min Normal Estimated CRCL 149.33 Performed By: #### L501.1105, L501.1400, L501.4100, L501.4405, L300.3900, L300.4310 #### [facility] [address] [place], [place], [id number] URIC ACID Collected: 10/24/2018 Status: F Source: [place] 10:50 AM [facility] REPOSITORY TYPE CODE TESTS RESULT OUT OF RANGE REFERENCE UNITS LAB L501.1400 2.6-6.0 mg/dL Normal URIC 4.0 Result Comment: The drugs N-Acetylcysteine and Metamizole may falsely depress this assay. Performed By: #### L501.1105, L501.1400, L501.4100, L501.4405, L300.3900, L300.4310 #### [facility] [address] [place], [address] AST(SGOT) Collected: 10/24/2018 Status: F Source: [place] 10:50 AM [facility] REPOSITORY TYPE CODE TESTS RESULT OUT OF RANGE REFERENCE UNITS LAB L501.4100 15-37 U/L Normal AST 15 Performed By: #### L501.1105, L501.1400, L501.4100, L501.4405, L300.3900, L300.4310 #### [facility] [address] [place], [place], [id number] ALANINE AMINOTRANSFERAS Collected: 10/24/2018 Status: F Source: [place] (SGPT) 10:50 AM [facility] REPOSITORY TYPE CODE TESTS RESULT OUT OF RANGE REFERENCE UNITS LAB L501.4405 13-56 U/L Normal ALT 16 Performed By: #### L501.1105, L501.1400, L501.4100, L501.4405, L300.3900, L300.4310 #### [facility] [address] [place], [place], [address] PROTHROMBIN TIME W/INR Collected: 10/24/2018 Status: F Source: [place] 10:50 AM [facility] REPOSITORY TYPE CODE TESTS RESULT OUT OF RANGE REFERENCE UNITS LAB L300.4150 11.7-14.9 SECONDS Normal PROTIME 12.9 LAB L300.4200 Normal INR 1.0 Performed By: #### L501.1105, L501.1400, L501.4100, L501.4405, L300.3900, L300.4310 #### [facility] [address] [place], [place], [id number] PARTIAL THROMBOPLAST Collected: 10/24/2018 Status: F Source: [place] TIME 10:50 AM [facility] REPOSITORY TYPE CODE TESTS RESULT OUT OF RANGE REFERENCE UNITS LAB L300.4310 24.1-36.2 Seconds Normal PTT 26.6 Performed By: #### L501.1105, L501.1400, L501.4100, L501.4405, L300.3900, L300.4310 #### [facility] [address] [place], [address] PROGRESS Observed: 10/15/2018 Status: COMPLETED Source: [place] 3:54 PM [facility] REPOSITORY HNO ID: [id number] Author: Juan Almendarez Service: (none) Author Type: Physician Type: Progress Notes Filed: 10/15/2018 5:29 PM Note Text: Chief Complaint Patient presents with: Physical HPI Karissa De Leon is a 28 year old female who presents here today for WAE. Patient currently 33 weeks gestational age. No problems with the . Past medical history, appointments, medications, allergies reviewed. Previous Medical History PAST MEDICAL HISTORY Diagnosis Date - Abnormal Pap smear of cervix - anxiety/depression - Asthma - Cervical high risk HPV (human papillomavirus) test positive 2007 ongoing - Hypertension 2014 - Latex allergy - Moderate dysplasia of cervix 2011 Mild dysplasia 2008 - Multiple drug allergies - PONV (postoperative nausea and vomiting) - Scarlet fever 1990 - Scoliosis - TMJ (dislocation of temporomandibular joint) Previous Surgical History PAST SURGICAL HISTORY Procedure Laterality Date - CERVIX UTERI CONIZA LP ELCTRO EXCI 08/09/12 LEEP-Cervix - COLPOSCOPY (VAGINOSCOPY) 2011; 2008; 2009 Colposcopy - DANDC, DIAG AND/OR THERAPEUTIC Dilation AND curettage - HAND/FINGER SURGERY UNLISTED 2008 trigger finger released left hand-ring finger Family History FAMILY HISTORY Problem Relation Age of Onset - Asthma Mother - Psychiatry Mother manic depression, bipolar - Coronary Artery Disease Mother 51 - Alcohol/Drug Mother alcoholic - Diabetes Mother - Cancer Maternal Grandmother skin - Cancer Maternal Grandfather bladder - Alcohol/Drug Paternal Grandfather ETOH - Heart Paternal Grandfather - Heart Sister mur mur - Alcohol/Drug Sister alcoholic Patient Allergies ALLERGIES Allergen Reactions - Amoxicillin Hives - Demerol [Meperidine* Hives - Latex Rash - Macrobid [Nitrofura* Hives, Vomiting - Morphine Hives - Ortho Tri-Cyclen (2* Hives - Oxycodone Hives - Sulfa (Sulfonamide * Hives - Imitrex [Sumatripta* Other: See Comments Chest pain - Milk GI Upset, Vomiting Current Medications Current Outpatient Prescriptions on File Prior to Visit: Breast Pump Device As directed MAGNESIUM ORAL Take by mouth. loratadine (CLARITIN ORAL) Take by mouth as needed. PNV no.95/ferrous fum/folic ac ( ORAL) Take by mouth once daily. docosahexanoic acid (DHA ORAL) Take by mouth once daily. acetaminophen (TYLENOL EXTRA STRENGTH) 500 mg tablet Take 500 mg by mouth every 8 hours as needed. L.acid/L.casei/B.bif/B.maggi/FOS (PROBIOTIC BLEND ORAL) Take by mouth. vit 80-elxw-mlnhr-dha ( + DHA) 28 mg iron- 975 mcg-200 mg cmpk Take 1 tablet by mouth once daily. No current facility-administered medications on file prior to visit. 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 [employer] Social History Main Topics Smoking status: Never Smoker Smokeless tobacco: Current User Types: Chew Alcohol use: Yes Comment: seldom 1 per 6 months, not while Drug use: No Sexual activity: Yes Partners with: Male control/protection: Condom Review of Symptoms REVIEW OF SYSTEMS GENERAL: No weight loss, malaise or fevers HEENT: Negative for frequent or significant headaches, significant change in vision, significant vision problems, significant ear problems or hearing loss, nasal discharge, or nose bleeds, sore throat, difficulty swallowing, mouth lesions, hoarseness NECK: Negative for lumps, goiter, pain and significant neck swelling RESPIRATORY: Negative for cough, hemoptysis, wheezing, COPD, dyspnea or shortness of breath CARDIOVASCULAR: Negative for chest pain, leg swelling, hypertension, CHF or palpitations GI: No nausea, vomiting, or diarrhea. Gets daily heartburn or reflux symptoms if eats too much and taking alcon's helps. : No history of dysuria or blood MUSCULOSKELETAL: has pain in the left hip area from child's position SKIN: Negative for lesions, rash, and itching PSYCH: Negative for sleep disturbance, mood disorder and recent psychosocial stressors HEMATOLOGY/LYMPHOLOGY: Negative for prolonged bleeding, bruising easily or swollen nodes ENDOCRINE: Negative for cold or heat intolerance, polydipsia and goiter. Has been thirsty but sugar test ws normal. NEURO: No history of headaches, syncope, paralysis, seizures or tremors EXAM: BP 126/80 (BP Site: Left Arm, BP Position: Sitting, BP Cuff Size: Large Adult) Pulse 78 Temp 37 ?C (98.6 ?F) (Left Tympanic) Resp 18 Wt 106.1 kg (234 lb) LMP 02/22/2018 (Exact Date) BMI 40.17 kg/m? General Appearance: Well appearing, alert, in no acute distress, well-hydrated, well nourished.. Skin: Skin color, texture, turgor normal, no suspicious rashes or lesions. Head: Normocephalic, no masses, lesions, tenderness or abnormalities. Eyes: Anicteric sclera. Pupils are equally round and reactive to light. Extraocular movements are intact. . Ears: External ears normal, canals clear. Nose/Sinuses: Nares normal, septum midline, mucosa normal, no drainage or sinus tenderness. Oropharynx: Lips, mucosa, and tongue normal, teeth and gums normal, oropharynx normal. Neck: Supple, no adenopathy; thyroid symmetric, normal size, no bruits. Lungs: lungs clear to auscultation. No wheezing, rhonchi, rales. Heart: RRR without murmur, gallop, or rubs. No ectopy. Abdomen: Normal abdominal exam, Abdomen soft, non-tender. Bowel sounds normal. No masses, organomegaly. Extremities: No deformities, edema, skin discoloration. Musculoskeletal: Spine range of motion normal. Muscular strength intact, No joint swelling, deformity, or tenderness. Peripheral Pulses: Normal. Neurologic: Gait normal. Sensation to light touch and nc 2-12 intact.. Health Maintenance List ANNUAL PCP TEAM CHRONIC DISEASE VISIT due on 08/28/2019 PAP EVERY 3 YEARS (21-30 YEAR OLDS) due on 04/19/2021 DTAP,TDAP,TD(2 - Td) due on 05/06/2021 INFLUENZA Completed Data reviewed Component Latest Ref Rng AND Units 09/13/2018 Glucose 74 - 99 mg/dL 80 BUN 7 - 21 mg/dL 5 (L) Creatinine 0.58 - 0.96 mg/dL 0.58 Sodium 136 - 144 mmol/L 135 (L) Potassium 3.7 - 5.1 mmol/L 4.0 Chloride 97 - 105 mmol/L 104 CO2 22 - 30 mmol/L 25 Anion Gap 9 - 18 mmol/L 6 (L) Calcium 8.5 - 10.2 mg/dL 9.2 eGFR- >60 eGFR-All Other Races . >60 A/P ASSESSMENT/PLAN: 1. Well adult exam - ICD9: V70.0, ICD10: Z00.00 (primary diagnosis) - Encouraged monthly Breast Self Exam - Follow up for annual exam in one year. 2. Migraine with aura and without status migrainosus, not intractable - ICD9: 346.00, ICD10: G43.109 - Clinically without issues, will monitor 3. Mild intermittent asthma without complication - ICD9: 493.90, ICD10: J45.20 Mild intermittent Asthma stable - Avoidance of triggers recommended 4. Depression, unspecified depression type - ICD9: 311, ICD10: F32.9 - No longer active. Will monitor 5. Generalized anxiety disorder - ICD9: 300.02, ICD10: F41.1 - See #4 6. History of hypertension - ICD9: V12.59, ICD10: Z86.79 - Very good BP on exam will monitor. F/u in 1 yr for WAE sooner if issues. Juan Almendarez MD CNOV Observed: 10/15/2018 Status: COMPLETED Source: [place] 3:40 PM [facility] REPOSITORY Office Visit (FAMPWS) KARISSA DE LEON ([id number]) 1990 F Date Time Provider Department 10/15/18 3:40 PM JUAN ALMENDAREZPWS During your visit today, we recorded the following information about you: Temperature Pulse Respiration Blood pressure 98.6 degrees 78/minute 18/minute 126/80 Weight 106.1 kg Juan Almendarez MD 10/15/2018 5:29 PM Signed Chief Complaint Patient presents with: Physical HPI Karissa De Leon is a 28 year old female who presents here today for WAE. Patient currently 33 weeks gestational age. No problems with the . Past medical history, appointments, medications, allergies reviewed. Previous Medical History PAST MEDICAL HISTORY Diagnosis Date - Abnormal Pap smear of cervix - anxiety/depression - Asthma - Cervical high risk HPV (human papillomavirus) test positive 2007 ongoing - Hypertension 2014 - Latex allergy - Moderate dysplasia of cervix 2011 Mild dysplasia 2008 - Multiple drug allergies - PONV (postoperative nausea and vomiting) - Scarlet fever 1990 - Scoliosis - TMJ (dislocation of temporomandibular joint) Previous Surgical History PAST SURGICAL HISTORY Procedure Laterality Date - CERVIX UTERI CONIZA LP ELCTRO EXCI 08/09/12 LEEP-Cervix - COLPOSCOPY (VAGINOSCOPY) 2011; 2008; 2009 Colposcopy - DANDC, DIAG AND/OR THERAPEUTIC Dilation AND curettage - HAND/FINGER SURGERY UNLISTED 2008 trigger finger released left hand-ring finger Family History FAMILY HISTORY Problem Relation Age of Onset - Asthma Mother - Psychiatry Mother manic depression, bipolar - Coronary Artery Disease Mother 51 - Alcohol/Drug Mother alcoholic - Diabetes Mother - Cancer Maternal Grandmother skin - Cancer Maternal Grandfather bladder - Alcohol/Drug Paternal Grandfather ETOH - Heart Paternal Grandfather - Heart Sister mur mur - Alcohol/Drug Sister alcoholic Patient Allergies ALLERGIES Allergen Reactions - Amoxicillin Hives - Demerol [Meperidine* Hives - Latex Rash - Macrobid [Nitrofura* Hives, Vomiting - Morphine Hives - Ortho Tri-Cyclen (2* Hives - Oxycodone Hives - Sulfa (Sulfonamide * Hives - Imitrex [Sumatripta* Other: See Comments Chest pain - Milk GI Upset, Vomiting Current Medications Current Outpatient Prescriptions on File Prior to Visit: Breast Pump Device As directed MAGNESIUM ORAL Take by mouth. loratadine (CLARITIN ORAL) Take by mouth as needed. PNV no.95/ferrous fum/folic ac ( ORAL) Take by mouth once daily. docosahexanoic acid (DHA ORAL) Take by mouth once daily. acetaminophen (TYLENOL EXTRA STRENGTH) 500 mg tablet Take 500 mg by mouth every 8 hours as needed. L.acid/L.casei/B.bif/B.maggi/FOS (PROBIOTIC BLEND ORAL) Take by mouth. vit 34-lfup-diqru-dha ( + DHA) 28 mg iron- 975 mcg-200 mg cmpk Take 1 tablet by mouth once daily. No current facility-administered medications on file prior to visit. 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 [employer] Social History Main Topics Smoking status: Never Smoker Smokeless tobacco: Current User Types: Chew Alcohol use: Yes Comment: seldom 1 per 6 months, not while Drug use: No Sexual activity: Yes Partners with: Male control/protection: Condom Review of Symptoms REVIEW OF SYSTEMS GENERAL: No weight loss, malaise or fevers HEENT: Negative for frequent or significant headaches, significant change in vision, significant vision problems, significant ear problems or hearing loss, nasal discharge, or nose bleeds, sore throat, difficulty swallowing, mouth lesions, hoarseness NECK: Negative for lumps, goiter, pain and significant neck swelling RESPIRATORY: Negative for cough, hemoptysis, wheezing, COPD, dyspnea or shortness of breath CARDIOVASCULAR: Negative for chest pain, leg swelling, hypertension, CHF or palpitations GI: No nausea, vomiting, or diarrhea. Gets daily heartburn or reflux symptoms if eats too much and taking alcon's helps. : No history of dysuria or blood MUSCULOSKELETAL: has pain in the left hip area from child's position SKIN: Negative for lesions, rash, and itching PSYCH: Negative for sleep disturbance, mood disorder and recent psychosocial stressors HEMATOLOGY/LYMPHOLOGY: Negative for prolonged bleeding, bruising easily or swollen nodes ENDOCRINE: Negative for cold or heat intolerance, polydipsia and goiter. Has been thirsty but sugar test ws normal. NEURO: No history of headaches, syncope, paralysis, seizures or tremors EXAM: BP 126/80 (BP Site: Left Arm, BP Position: Sitting, BP Cuff Size: Large Adult) Pulse 78 Temp 37 ?C (98.6 ?F) (Left Tympanic) Resp 18 Wt 106.1 kg (234 lb) LMP 02/22/2018 (Exact Date) BMI 40.17 kg/m? General Appearance: Well appearing, alert, in no acute distress, well-hydrated, well nourished.. Skin: Skin color, texture, turgor normal, no suspicious rashes or lesions. Head: Normocephalic, no masses, lesions, tenderness or abnormalities. Eyes: Anicteric sclera. Pupils are equally round and reactive to light. Extraocular movements are intact. . Ears: External ears normal, canals clear. Nose/Sinuses: Nares normal, septum midline, mucosa normal, no drainage or sinus tenderness. Oropharynx: Lips, mucosa, and tongue normal, teeth and gums normal, oropharynx normal. Neck: Supple, no adenopathy; thyroid symmetric, normal size, no bruits. Lungs: lungs clear to auscultation. No wheezing, rhonchi, rales. Heart: RRR without murmur, gallop, or rubs. No ectopy. Abdomen: Normal abdominal exam, Abdomen soft, non-tender. Bowel sounds normal. No masses, organomegaly. Extremities: No deformities, edema, skin discoloration. Musculoskeletal: Spine range of motion normal. Muscular strength intact, No joint swelling, deformity, or tenderness. Peripheral Pulses: Normal. Neurologic: Gait normal. Sensation to light touch and nc 2-12 intact.. Health Maintenance List ANNUAL PCP TEAM CHRONIC DISEASE VISIT due on 08/28/2019 PAP EVERY 3 YEARS (21-30 YEAR OLDS) due on 04/19/2021 DTAP,TDAP,TD(2 - Td) due on 05/06/2021 INFLUENZA Completed Data reviewed Component Latest Ref Rng AND Units 09/13/2018 Glucose 74 - 99 mg/dL 80 BUN 7 - 21 mg/dL 5 (L) Creatinine 0.58 - 0.96 mg/dL 0.58 Sodium 136 - 144 mmol/L 135 (L) Potassium 3.7 - 5.1 mmol/L 4.0 Chloride 97 - 105 mmol/L 104 CO2 22 - 30 mmol/L 25 Anion Gap 9 - 18 mmol/L 6 (L) Calcium 8.5 - 10.2 mg/dL 9.2 eGFR- >60 eGFR-All Other Races . >60 A/P ASSESSMENT/PLAN: 1. Well adult exam - ICD9: V70.0, ICD10: Z00.00 (primary diagnosis) - Encouraged monthly Breast Self Exam - Follow up for annual exam in one year. 2. Migraine with aura and without status migrainosus, not intractable - ICD9: 346.00, ICD10: G43.109 - Clinically without issues, will monitor 3. Mild intermittent asthma without complication - ICD9: 493.90, ICD10: J45.20 Mild intermittent Asthma stable - Avoidance of triggers recommended 4. Depression, unspecified depression type - ICD9: 311, ICD10: F32.9 - No longer active. Will monitor 5. Generalized anxiety disorder - ICD9: 300.02, ICD10: F41.1 - See #4 6. History of hypertension - ICD9: V12.59, ICD10: Z86.79 - Very good BP on exam will monitor. F/u in 1 yr for WAE sooner if issues. Juan Almendarez MD Referring Provider: JUAN ALMENDAREZ [[id number]] Allergies As of Date: 10/15/2018 Noted Allergy Reaction AMOXICILLIN 06/12/2012 4 - Hives DEMEROL (MEPERIDINE (PF)) 06/12/2012 4 - Hives LATEX 07/25/2012 2 - Rash MACROBID (NITROFURANTOIN MONOHYD/*06/12/2012 4 - Hives 11 - Vomiting MORPHINE 06/12/2012 4 - Hives ORTHO TRI-CYCLEN (21) 06/12/2012 4 - Hives OXYCODONE 06/12/2012 4 - Hives SULFA (SULFONAMIDE ANTIBIOTICS) 06/12/2012 4 - Hives IMITREX (SUMATRIPTAN) 05/18/2015 14 - Other: See Comments Comments: Chest pain MILK 06/12/2012 8 - GI Upset 11 - Vomiting Date Reviewed: 10/15/2018 Reviewed by: Juan Almendarez - Fully Assessed Reason for Visit: Physical [83] Primary Visit Diagnosis:Well adult exam [Z00.00] Comment:last done: 10/15/2018 Other Visit Diagnoses:Migraine with aura and without status migrainosus, not intractable [G43.109] Mild intermittent asthma without complication [J45.20] Depression, unspecified depression type [F32.9] Generalized anxiety disorder [F41.1] History of hypertension [Z86.79] Prescriptions as of 10/15/2018 Sig: TUMS ORAL Take by mouth as needed. BREAST PUMP As directed MAGNESIUM ORAL Take by mouth. CLARITIN ORAL Take by mouth as needed. ORAL Take by mouth once daily. DHA ORAL Take by mouth once daily. ACETAMINOPHEN 500 MG TABLET Take 500 mg by mouth every 8 * PROBIOTIC BLEND ORAL Take by mouth. 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 Multiple drug allergies [Z88.9] Priority: B TMJ (dislocation of temporomandibular joint) [S* Priority: B Seasonal allergies [J30.2] INVALID FOR* Priority: B Generalized anxiety disorder [F41.1] INVALID FOR* Priority: A Urticaria [L50.9] INVALID FOR* Priority: C Dermagraphy [L50.3] INVALID FOR* Priority: C More... Migraine with aura and without status migrainos*INVALID FOR* Priority: A Mild intermittent asthma without complication [*INVALID FOR* Priority: A Depression [F32.9] INVALID FOR* Priority: A Obesity, Class I, BMI 30-34.9 [E66.9] INVALID FOR* Priority: B History of depression [Z86.59] INVALID FOR* Priority: H More... History of loop electrosurgical excision proced*INVALID FOR* Priority: H More... History of hypertension [Z86.79] INVALID FOR* Priority: H More... History of asthma [Z87.09] INVALID FOR* Priority: H More... Family history of arrhythmia [Z82.49] INVALID FOR* Priority: F More... More... History of spontaneous [Z87.59] INVALID FOR* Priority: H More... History of therapeutic [Z92.89] INVALID FOR* Priority: H More... Well adult exam [Z00.00] INVALID FOR* Priority: E More... Medications Discontinued During This Encounter VITAMIN B COMPLEX (B COMPLEX 1 ORAL) 10/15/2018 Class: Historical Med Route: ORAL Sig: Take by mouth. Disc: Reason for discontinue is not on file. Disposition: Return in about 1 year (around 10/15/2019) for complete PE. Follow-up and Disposition History Recorded Encounter Status:Closed by JUAN ALMENDAREZ on 10/15/18 PROGRESS Observed: 09/13/2018 Status: COMPLETED Source: [place] 4:31 PM [facility] REPOSITORY HNO ID: [id number] Author: Candace Vidales Service: (none) Author Type: Physician Type: Progress Notes Filed: 09/13/2018 4:37 PM Note Text: Karissa De Leon is a 28 year old female who presents for concerns regarding dizziness. Pt is 28 weeks and was just seen for routine ob visit this week. Pt reports over past day has been feeling more dizzy. Pt reports good movement. Pt denies any syncopal episodes. Pt reports she thought she was hungry and had multiple small snacks without improvement. Pt denies CP, SOB, VB, LOF or contractions. Pt reports she was sick last week so it is possible she still has residual head cold. Pt denies fevers. Pt offers no other concerns today. PAST MEDICAL HISTORY Diagnosis Date - Abnormal Pap smear of cervix - anxiety/depression - Asthma - Cervical high risk HPV (human papillomavirus) test positive 2007 ongoing - Hypertension 2014 - Latex allergy - Moderate dysplasia of cervix 2011 Mild dysplasia 2008 - Multiple drug allergies - PONV (postoperative nausea and vomiting) - Scarlet fever 1990 - Scoliosis - TMJ (dislocation of temporomandibular joint) PAST SURGICAL HISTORY Procedure Laterality Date - CERVIX UTERI CONIZA LP ELCTRO EXCI 08/09/12 LEEP-Cervix - COLPOSCOPY (VAGINOSCOPY) 2011; 2008; 2009 Colposcopy - DANDC, DIAG AND/OR THERAPEUTIC Dilation AND curettage - HAND/FINGER SURGERY UNLISTED 2008 trigger finger released left hand-ring finger FAMILY HISTORY Problem Relation Age of Onset - Asthma Mother - Psychiatry Mother manic depression, bipolar - Cancer Maternal Grandmother skin - Cancer Maternal Grandfather bladder - Alcohol/Drug Paternal Grandfather ETOH - Heart Paternal Grandfather - Heart Sister mur mur Social History Marital status: Spouse name: Tamir Years of education: 12 Number of children: 1 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 loratadine (CLARITIN ORAL) Take by mouth as needed. PNV no.95/ferrous fum/folic ac ( ORAL) Take by mouth once daily. docosahexanoic acid (DHA ORAL) Take by mouth once daily. acetaminophen (TYLENOL EXTRA STRENGTH) 500 mg tablet Take 500 mg by mouth every 8 hours as needed. L.acid/L.casei/B.bif/B.maggi/FOS (PROBIOTIC BLEND ORAL) Take by mouth. VITAMIN B COMPLEX (B COMPLEX 1 ORAL) Take by mouth. vit 44-yvuz-wekux-dha ( + DHA) 28 mg iron- 975 mcg-200 mg cmpk Take 1 tablet by mouth once daily. (Patient not taking: Reported on 08/03/2018 ) No current facility-administered medications for this visit. Allergies As of Date: 09/13/2018 Allergen Noted Reaction AMOXICILLIN 06/12/2012 Hives DEMEROL [MEPERIDINE (PF)] 06/12/2012 Hives IMITREX [SUMATRIPTAN] 05/18/2015 Other: See Comments LATEX 07/25/2012 Rash MACROBID [NITROFURANTOIN MONOHYD/*06/12/2012 Hives and Vomiting MILK 06/12/2012 GI Upset and Vomiting MORPHINE 06/12/2012 Hives ORTHO TRI-CYCLEN (21) 06/12/2012 Hives OXYCODONE 06/12/2012 Hives SULFA (SULFONAMIDE ANTIBIOTICS) 06/12/2012 Hives Fully Assessed 09/13/2018 REVIEW OF SYSTEMS Abdomen: no pain, no diarrhea or constipation Bladder: no dysuria .. Expanded ROS: GENERAL: Fatigue, Negative for fever Allergies and current medication updated:Yes EXAM: BP 120/80 Wt 225 lb (102.1kg) LMP 02/22/2018 GENERAL: pleasant, female in no apparent distress HEENT: Normocephalic and atraumatic NECK: full range of motion DERMATOLOGY: Normal, without lesions, non-icteric and non-hirsute CARDIAC: regular rate and rhythm CHEST: Normal inspiratory effort ABDOMEN: soft, non-tender and gravid NEURO: alert and oriented x3,exam grossly non-focal ASSESSMENT AND PLAN: Encounter Diagnosis ICD-10-CM 1. Dizziness R42 BASIC METABOLIC PNL 2. Malaise and fatigue R53.81 R53.83 3. Need for vaccination Z23 INFLUENZA VACCINE QUADRIVALENT AGE 3 YRS PLUS + IM 4. Reviewed changing positions slowly, increasing PO fluids and add some Gatorade. 5. Possible residual illness causing symptoms 6. Pt to call office if still not feeling any improvement in symptoms Candace Perez MD BASIC METABOLIC PANL Collected: 09/13/2018 Status: F Source: [place] 3:38 PM [facility] REPOSITORY TYPE CODE TESTS RESULT OUT OF REFERENCE UNITS RANGE LAB GLU 74-99 mg/dL Glucose 80 Result Comment: The [place] Diabetes Association (ADA) provides guidance for cutoff values for fasting glucose and random glucose. The ADA defines fasting as no caloric intake for at least 8 hours. Fas ting plasma glucose results between 100 to 125 mg/dL indicate increased risk for diabetes (prediabetes). Fasting plasma glucose results greater than or equal to 126 mg/dL meet the criteria for diagnosis of diabetes. In the absence of unequivocal hyperglycemia, results should be confirmed by repeat testing. In a patient with classic symptoms of hyperglycemia or hyperglycemic crisis, random plasma glucose results greater than or equal to 200 mg/dL meet the criteria for diagnosis of diabetes. Reference: Standards of Medical Care in Diabetes 2016, [place] [employer] Association. Diabetes Care. 2016.39(Suppl 1). LAB BUN 7-21 mg/dL BUN Low 5 LAB CRET 0.58-0.96 mg/dL Creatinine 0.58 LAB NA 136-144 mmol/L Sodium Low 135 LAB K 3.7-5.1 mmol/L Potassium 4.0 LAB CL 97-105 mmol/L Chloride 104 LAB CO2 22-30 mmol/L CO2 25 LAB AGAP 9-18 mmol/L Anion Gap Low 6 LAB CA 8.5-10.2 mg/dL Calcium, Total 9.2 LAB GFRAA eGFR- Amer. >60 LAB GFRNAA . eGFR-All Other Races >60 Result Comment: eGFR (Estimated GFR) Units of measure: mL/min/1.73 meters squared eGFR is derived from the reexpressed MDRD Study equation using the following parameters: serum creatinine, age, gender and race. The creatinine assay has been calibrated to be traceable to IDMS. An eGFR <60 mL/min/1.73m2 for >3 months is consistent with chronic kidney disease. Refer to KDOQI guidelines for clinical interpretation. In patients with unstable renal function, e.g. those with acute kidney injury, the eGFR may not accurately reflect actual GFR. Performed By: #### BMP #### [facility] [address] [place], [place] [address] PROGRESS Observed: 09/13/2018 Status: COMPLETED Source: [place] 3:20 PM [facility] REPOSITORY HNO ID: [id number] Author: Monique Owens Ma Service: (none) Author Type: (none) Type: Progress Notes Filed: 09/13/2018 4:37 PM Note Text: 28 year old female here for INACTIVATED INFLUENZA VACCINE. [id number] Season Patient is identified by name and date of : Yes [] CONTRAINDICATIONS color enhanced section Age less than 6 months? No Allergy to eggs, chicken, chicken feathers, or chicken dander? No Allergy to thimerosal (a preservative) or formaldehyde, gelatin? No History of severe reaction to any vaccine component or a previous dose of influenza vaccination? No History of Guillain-Muir Syndrome within 6 weeks after a previous influenza vaccine? No Patient is not moderately or severely ill? No Current temperature greater or equal to 100.4F? No History of Bone Marrow Transplant prior 6 months or solid organ transplant in the past 3 months ? No History of fainting after a prior injection or medical procedure? No- ? If patient has fainted in the past, the CDC recommends sitting or lying down for 15 minutes after the vaccination. [] VERIFICATION color enhanced section Was the answer Yes for any of the above contraindications? No contraindications present. Acceptable to proceed with vaccine. Patient/guardian agrees the above answers are true to the best of their knowledge? Yes Flu vaccine information sheet given? Yes See immunization activity in [facility] for details of immunizations adminstered today. Patient age: [age] year old For The 1598-1208 Flu Season 6-35 months old: Fluzone 0.25 ml - IM (Preservative Free) 3 years of age: Fluzone 0.5 ml - IM (Preservative Free) 3 years and older: Fluzone 0.5 ml- IM-(with Preservatives) 65+ years old: 2-49 years old Fluzone High-Dose 0.5 ml - IM (Preservative Free) FLUMIST- intranasal REMEMBER: If patient is less than 9 years of age and this is the first vaccine of Influenza to be received in any flu season, they should receive a second dose in one months time. PROTEIN/CREATININE RATIO Collected: Status: F Source: [place] 09/12/2018 10:45 AM [facility] REPOSITORY TYPE CODE TESTS RESULT OUT OF REFERENCE UNITS RANGE LAB UTPR 0-20 mg/dL Protein Urine 6 Random LAB UCRR 20-300 mg/dL Creatinine,Ur 67.0 ine,Ran LAB PCRAT <0.2 Protein/Creat 0.1 inine Ratio Performed By: #### SUSAN #### [facility] [address] [place], [place] [address] CBC Collected: 09/12/2018 Status: F Source: [place] 10:43 AM [facility] REPOSITORY TYPE CODE TESTS RESULT OUT OF REFERENCE UNITS RANGE LAB WBC 3.70-11.00 k/uL WBC High 12.04 LAB RBC 3.90-5.20 m/uL Low RBC 3.77 LAB HGB 11.5-15.5 g/dL Hemoglobin 12.2 LAB HCT 36.0-46.0 % Hematocrit 37.9 LAB MCV 80.0-100.0 fL MCV High 100.5 LAB MCH 26.0-34.0 pG MCH 32.4 LAB MCHC 30.5-36.0 g/dL MCHC 32.2 LAB RDWCV 11.5-15.0 % RDW-CV 13.1 LAB PLTCT 150-400 k/uL Platelet Count 169 LAB MPV 9.0-12.7 fL MPV 12.1 LAB ABSNUC <0.01 k/uL Absolute nRBC <0.01 Performed By: #### CBC, CMP, URIC #### [facility] [address] [place], [place] [address] COMP METABOLIC PANEL Collected: 09/12/2018 Status: F Source: [place] 10:43 AM [facility] REPOSITORY TYPE CODE TESTS RESULT OUT OF REFERENCE UNITS RANGE LAB TP 6.3-8.0 g/dL Protein, Total 6.3 LAB ALB 3.9-4.9 g/dL Low Albumin 3.4 LAB CA 8.5-10.2 mg/dL Calcium, Total 10.0 LAB TBIL 0.2-1.3 mg/dL Bilirubin, Total 0.2 LAB ALKP 34-123 U/L Alkaline Phosphatase 71 LAB AST 13-35 U/L AST 17 LAB GLU 74-99 mg/dL Low Glucose 61 Result Comment: The [place] Diabetes Association (ADA) provides guidance for cutoff values for fasting glucose and random glucose. The ADA defines fasting as no caloric intake for at least 8 hours. Fas ting plasma glucose results between 100 to 125 mg/dL indicate increased risk for diabetes (prediabetes). Fasting plasma glucose results greater than or equal to 126 mg/dL meet the criteria for diagnosis of diabetes. In the absence of unequivocal hyperglycemia, results should be confirmed by repeat testing. In a patient with classic symptoms of hyperglycemia or hyperglycemic crisis, random plasma glucose results greater than or equal to 200 mg/dL meet the criteria for diagnosis of diabetes. Reference: Standards of Medical Care in Diabetes 2016, [place] [employer]. Diabetes Care. 2016.39(Suppl 1). LAB BUN 7-21 mg/dL BUN Low 5 LAB CRET 0.58-0.96 mg/dL Creatinine Low 0.57 LAB NA 136-144 mmol/L Sodium 139 LAB K 3.7-5.1 mmol/L Potassium 3.8 LAB CL 97-105 mmol/L Chloride 104 LAB CO2 22-30 mmol/L CO2 22 LAB AGAP 9-18 mmol/L Anion Gap 13 LAB ALT 7-38 U/L ALT 13 LAB GFRAA eGFR- Amer. >60 LAB GFRNAA . eGFR-All Other Races >60 Result Comment: eGFR (Estimated GFR) Units of measure: mL/min/1.73 meters squared eGFR is derived from the reexpressed MDRD Study equation using the following parameters: serum creatinine, age, gender and race. The creatinine assay has been calibrated to be traceable to IDWA. An eGFR <60 mL/min/1.73m2 for >3 months is consistent with chronic kidney disease. Refer to KDOQI guidelines for clinical interpretation. In patients with unstable renal function, e.g. those with acute kidney injury, the eGFR may not accurately reflect actual GFR. Performed By: #### CBC, CMP, URIC #### [facility] [address] [place], [place] [address] URIC ACID Collected: 09/12/2018 Status: F Source: [place] 10:43 AM [facility] REPOSITORY TYPE CODE TESTS RESULT OUT OF RANGE REFERENCE UNITS LAB URIC 2.5-6.6 mg/dL Uric Acid 4.0 Performed By: #### CBC, CMP, URIC #### [facility] [address] [place], [place] [address] CBC AND DIFFERENTIAL Collected: 08/30/2018 Status: F Source: [place] 11:00 AM [facility] REPOSITORY TYPE CODE TESTS RESULT OUT OF REFERENCE UNITS RANGE LAB WBC 3.70-11.00 k/uL WBC High 11.41 LAB RBC 3.90-5.20 m/uL Low RBC 3.59 LAB HGB 11.5-15.5 g/dL Hemoglobin 11.9 LAB HCT 36.0-46.0 % Hematocrit 36.3 LAB MCV 80.0-100.0 fL MCV High 101.1 LAB MCH 26.0-34.0 pG MCH 33.1 LAB MCHC 30.5-36.0 g/dL MCHC 32.8 LAB RDWCV 11.5-15.0 % RDW-CV 13.0 LAB PLTCT 150-400 k/uL Platelet Count 171 LAB MPV 9.0-12.7 fL MPV 12.0 LAB ANEUT % Neut% 76.6 LAB AANEUT 1.45-7.50 k/uL Abs Neut High 8.74 LAB ALYMP % Lymph% 15.1 LAB AALYMP 1.00-4.00 k/uL Abs Lymph 1.72 LAB AMONO % Tensas% 5.4 LAB AAMONO <0.87 k/uL Abs Tensas 0.62 LAB AEOS % Eosin% 2.6 LAB AAEOS <0.46 k/uL Abs Eosin 0.30 LAB ABASO % Baso% 0.3 LAB AABASO <0.11 k/uL Abs Baso 0.03 LAB AUNRBC 0 /100 WBC NRBCs 0.0 LAB ABNRBC <0.01 k/uL Absolute nRBC <0.01 LAB DTYP DTYPE Auto Diff Performed By: #### CBCDIF #### [facility] [address] [place], [place] [address] 50G, 1HR GEST. Collected: 08/30/2018 Status: F Source: [place] GSCRN 11:00 AM [facility] REPOSITORY TYPE CODE TESTS RESULT OUT OF REFERENCE UNITS RANGE LAB GLUP 74-134 mg/dL Glucose 127 Screen, Preg Result Comment: [place] Congress of Obstetricians and Gynecologists (Green/Coustan) guidelines state a gestational diabetes mellitus positive screen is made, in women not previously diagnosed with overt diabetes, when the 1 hr plasma glucose level is equal to or above 140 mg/dL. The [facility] [employer] Research Worker and [employer] recommends a 135 mg/dL cutoff. Performed By: #### GLTGST #### [facility] [address] [place], [place] [address] PROGRESS Observed: 08/28/2018 Status: COMPLETED Source: [place] 2:53 PM [facility] REPOSITORY HNO ID: [id number] Author: Sue (Saddle Cutter) Podlogar Service: (none) Author Type: Nurse Practitioner Type: Progress Notes Filed: 08/28/2018 3:10 PM Note Text: CC: Patient presents with: Cough: started not last night , night before nasal drainage sore throat, next morning cough and sob, pt 26 weeks HPI: Karissa De Leon is a 28 year old female who presents to the office with complaint of respiratory symptoms, cough, productive, sore throat and nasal drainage 2 days. Symptoms started with cough. Today associated symptoms includes sore throat- mild, nasal congestion, post nasal drip and cough- moist. She denies sneezing, facial pain/pressure, hoarse voice, swollen glands, headache, body aches, fever, ear pain, ear pressure , rash, wheezing and dyspnea. Treatments tried include throat spray with minor relief of symptoms. Has had some SOB with coughing. Sick contacts: yes. Patient confirms a history of Childhood asthma and seasonal/environmental allergies. Non-smoker and with a history of seasonal allergies. The ROS is otherwise negative. The patient's pmh, medications, allergies, and past visits are reviewed. PHYSICAL EXAM: BP 102/60 (BP Site: Left Arm, BP Position: Sitting, BP Cuff Size: Large Adult) Pulse 94 Temp 37.1 ?C (98.7 ?F) Resp 18 Wt 99.4 kg (219 lb 2.2 oz) LMP 02/22/2018 (Exact Date) SpO2 95% BMI 37.62 kg/m? General appearance: alert, cooperative, pleasant, in no acute distress Head: Normocephalic Eyes: PERRLA, EOM's intact, conjunctiva pink and moist, no icterus, sclera white, non-injected Ears: Right ear: Normal, TM - clear with good landmarks. Left ear: Normal, TM - clear with good landmarks Nose: clear rhinorrhea, mucosa erythematous and swollen. Oropharynx:moist without lesions Neck:supple and without adenopathy Heart: Negative. RRR without obvious murmur, gallop, or rubs. No ectopy. Lungs: clear to auscultation, without rales or wheeze, good air exchange ASSESSMENT/PLAN: 1. Viral URI with cough - ICD9: 465.9, ICD10: J06.9, B97.89 - Discussed viral etiology and rationale for treatment. - Symptomatic treatment with prn analgesia - Supportive care with fluids and rest - The patient may also use warm salt water gargles, throat lozenges and/or OTC throat spray as needed and nasal saline gtts and suction prn. - may also use claritin - Follow up in 5-7 days if symptoms persist or sooner if worsening of symptoms Sue Camargo APRN.SR ACCOUNT EXECUTIVE Prescription instructions reviewed with patient as applicable. Patient advised if symptoms do not improve or if symptoms worsen sooner, to contact their primary care physician. Potential red flag symptoms discussed with the patient. Reviewed appropriate action plan to take if red flag symptoms occur. Patient agreeable to treatment plan. CNSILVIANO Observed: 08/28/2018 Status: COMPLETED Source: [place] 2:40 PM [facility] RE[facility]ITORY [facility] KARISSA DE LEON ([id number]) 1990 F Date Time Provider Department 08/28/18 2:40 PM SUE CAMARGO (SR ACCOUNT EXECUTIVE) [facility] During your visit today, we recorded the following information about you: Temperature Pulse Respiration Blood pressure 98.7 degrees 94/minute 18/minute 102/60 Weight 99.4 kg Sue Camargo APRN.CNP 08/28/2018 3:10 PM Signed CC: Patient presents with: Cough: started not last night , night before nasal drainage sore throat, next morning cough and sob, pt 26 weeks HPI: Karissa De Leon is a 28 year old female who presents to the office with complaint of respiratory symptoms, cough, productive, sore throat and nasal drainage 2 days. Symptoms started with cough. Today associated symptoms includes sore throat- mild, nasal congestion, post nasal drip and cough- moist. She denies sneezing, facial pain/pressure, hoarse voice, swollen glands, headache, body aches, fever, ear pain, ear pressure , rash, wheezing and dyspnea. Treatments tried include throat spray with minor relief of symptoms. Has had some SOB with coughing. Sick contacts: yes. Patient confirms a history of Childhood asthma and seasonal/environmental allergies. Non-smoker and with a history of seasonal allergies. The ROS is otherwise negative. The patient's pmh, medications, allergies, and past visits are reviewed. PHYSICAL EXAM: BP 102/60 (BP Site: Left Arm, BP Position: Sitting, BP Cuff Size: Large Adult) Pulse 94 Temp 37.1 ?C (98.7 ?F) Resp 18 Wt 99.4 kg (219 lb 2.2 oz) LMP 02/22/2018 (Exact Date) SpO2 95% BMI 37.62 kg/m? General appearance: alert, cooperative, pleasant, in no acute distress Head: Normocephalic Eyes: PERRLA, EOM's intact, conjunctiva pink and moist, no icterus, sclera white, non-injected Ears: Right ear: Normal, TM - clear with good landmarks. Left ear: Normal, TM - clear with good landmarks Nose: clear rhinorrhea, mucosa erythematous and swollen. Oropharynx:moist without lesions Neck:supple and without adenopathy Heart: Negative. RRR without obvious murmur, gallop, or rubs. No ectopy. Lungs: clear to auscultation, without rales or wheeze, good air exchange ASSESSMENT/PLAN: 1. Viral URI with cough - ICD9: 465.9, ICD10: J06.9, B97.89 - Discussed viral etiology and rationale for treatment. - Symptomatic treatment with prn analgesia - Supportive care with fluids and rest - The patient may also use warm salt water gargles, throat lozenges and/or OTC throat spray as needed and nasal saline gtts and suction prn. - may also use claritin - Follow up in 5-7 days if symptoms persist or sooner if worsening of symptoms Sue Sellerslogar, PLASTICS FITTER.SR ACCOUNT EXECUTIVE Prescription instructions reviewed with patient as applicable. Patient advised if symptoms do not improve or if symptoms worsen sooner, to contact their primary care physician. Potential red flag symptoms discussed with the patient. Reviewed appropriate action plan to take if red flag symptoms occur. Patient agreeable to treatment plan. Sue Camargo, PLASTICS FITTER.SR ACCOUNT EXECUTIVE 08/28/2018 3:01 PM Signed Use nasal saline, may take Claritin, warm salt water gargles Referring Provider: SELF [200] Allergies As of Date: 08/28/2018 Noted Allergy Reaction AMOXICILLIN 06/12/2012 4 - Hives DEMEROL (MEPERIDINE (PF)) 06/12/2012 4 - Hives IMITREX (SUMATRIPTAN) 05/18/2015 14 - Other: See Comments Comments: Chest pain LATEX 07/25/2012 2 - Rash MACROBID (NITROFURANTOIN MONOHYD/*06/12/2012 4 - Hives 11 - Vomiting MILK 06/12/2012 8 - GI Upset 11 - Vomiting MORPHINE 06/12/2012 4 - Hives ORTHO TRI-CYCLEN (21) 06/12/2012 4 - Hives OXYCODONE 06/12/2012 4 - Hives SULFA (SULFONAMIDE ANTIBIOTICS) 06/12/2012 4 - Hives Date Reviewed: 08/28/2018 Reviewed by: Anel Grubbs (Electron Gun Inspector) ROBER Reyes - Fully Assessed Reason for Visit: Cough [28] Cmt: started not last night , night before nasal drainage sore throat, next morning cough and sob, pt 26 weeks Primary Visit Diagnosis:Viral URI with cough [J06.9, B97.89] Prescriptions as of 08/28/2018 Sig: ORAL Take by mouth once daily. DHA ORAL Take by mouth once daily. ACETAMINOPHEN 500 MG TABLET Take 500 mg by mouth every 8 * PROBIOTIC BLEND ORAL Take by mouth. B COMPLEX 1 ORAL Take by mouth. 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 Migraine with aura and without status migrainos*INVALID FOR* Priority: A Mild intermittent asthma without complication [*INVALID FOR* Priority: A Depression [F32.9] INVALID FOR* Priority: A Obesity, Class I, BMI 30-34.9 [E66.9] INVALID FOR* Priority: B History of depression [Z86.59] INVALID FOR* More... History of loop electrosurgical excision proced*INVALID FOR* More... History of hypertension [Z86.79] INVALID FOR* More... History of asthma [Z87.09] INVALID FOR* More... Family history of arrhythmia [Z82.49] INVALID FOR* More... Patient requested diagnostic testing [Z01.89] INVALID FOR* More... History of spontaneous [Z87.59] INVALID FOR* More... History of therapeutic [Z92.89] INVALID FOR* More... Other instructions from your clinician: Use nasal saline, may take Claritin, warm salt water gargles Follow-up and Disposition History Recorded Letter Text Department of Family Medicine [address] [address] 08/28/2018 Karissa De Leon [facility]# [id number] [address] [place] [address] TO WHOM IT MAY CONCERN: This is to confirm that Karissa De Leon had an appointment and was seen at the [facility] in the Department of Internal Medicine by Sue Camargo APRN.CNP on 08/28/2018. Sincerely yours, Electronically Signed Sue Camargo APRN.CNP Encounter Status:Closed by SUE CAMARGO CNP on 08/28/18 PROGRESS Observed: 07/05/2018 Status: COMPLETED Source: [place] 10:42 AM [facility] REPOSITORY HNO ID: [id number] Author: Daisha Kelley Service: (none) Author Type: Physician Type: Progress Notes Filed: 07/05/2018 10:43 AM Note Text: A aguila? fetus in utero with symmetric measurements Adequate growth (AGA). Estimated Date of Delivery: 12/06/18 EGA = 18w0d The anatomy appears normal. There are no evident malformations and /or effusions. No genetic markers are noted. The amniotic fluid volume is within normal limits. The sensitivity of ultrasound in the detection of malformations overall is approximately 35%. RECOMMENDATIONS: - Follow up ultrasound as clinically indicated PROGRESS Observed: 04/26/2018 Status: COMPLETED Source: [place] 3:31 PM [facility] REPOSITORY HNO ID: [id number] Author: Yamilka Wu Service: (none) Author Type: (none) Type: Progress Notes Filed: 04/26/2018 3:31 PM Note Text: pap logged, letter sent. Yamilka L Gedney Psr PROGRESS Observed: 04/24/2018 Status: COMPLETED Source: [place] 11:00 AM [facility] REPOSITORY HNO ID: [id number] Author: Daisha Kelley Service: (none) Author Type: Physician Type: Progress Notes Filed: 04/24/2018 11:01 AM Note Text: A single intrauterine gestational sac is noted with a regular outline. No decidual hemorrhage is noted. The yolk sac appears normal. An embryo is visualized with a heart rate within normal range Estimated Date of Delivery: 12/06/18 EGA = 7w5d The CRL corresponds to the gestational age. Body mass index is 33.47 kg/m?. RECOMMENDATIONS - Ultrasound examination at 11 to 13 weeks To mesure the nuchal translucency (NT) if first trimester screening is desired . 50G, 1HR GEST. Collected: 04/19/2018 Status: F Source: [place] GSCRN 10:15 AM [facility] REPOSITORY TYPE CODE TESTS RESULT OUT OF REFERENCE UNITS RANGE LAB GLUP 74-134 mg/dL Glucose 83 Screen, Preg Result Comment: [place] [employer] of Obstetricians and Gynecologists (Green/Coustan) guidelines state a gestational diabetes mellitus positive screen is made, in women not previously diagnosed with overt diabetes, when the 1 hr plasma glucose level is equal to or above 140 mg/dL. The [facility] Chemical Research Worker and [employer] recommends a 135 mg/dL cutoff. Performed By: #### GLTGST #### [facility] [address] [place] [address] CBC Collected: 04/19/2018 Status: F Source: [place] 10:15 AM [facility] REPOSITORY TYPE CODE TESTS RESULT OUT OF REFERENCE UNITS RANGE LAB WBC 3.70-11.00 k/uL WBC 9.58 LAB RBC 3.90-5.20 m/uL RBC 4.21 LAB HGB 11.5-15.5 g/dL Hemoglobin 13.1 LAB HCT 36.0-46.0 % Hematocrit 41.9 LAB MCV 80.0-100.0 fL MCV 99.5 LAB MCH 26.0-34.0 pG MCH 31.1 LAB MCHC 30.5-36.0 g/dL MCHC 31.3 LAB RDWCV 11.5-15.0 % RDW-CV 13.4 LAB PLTCT 150-400 k/uL Platelet Count 188 LAB MPV 9.0-12.7 fL MPV 12.6 LAB ABSNUC <0.01 k/uL Absolute nRBC <0.01 Performed By: #### CBC, RUBIGG, SYPHGX, HBSAG, HIV12C #### [facility] [address] [address] RUBELLA IGG ANTIBODY Collected: 04/19/2018 Status: F Source: [place] 10:15 AM [facility] REPOSITORY TYPE CODE TESTS RESULT OUT OF RANGE REFERENCE UNITS LAB RUBGQL Negative Abnormal Rubella IgG Positive Alert Ab, Qual Result Comment: Sample is considered positive for IgG antibodies to rubella virus. A positive result indicates previous exposure to Rubella virus or vaccination. LAB RUBQNT Index Value Rubella IgG Ab 1.32 Result Comment: Index values are interpreted as follows: Negative specimens <0.90 Equivocol specimens 0.90 to 0.99 Positive specimens >0.99 The magnitude of the measured result is not indicative of the amount of antibody present. Performed By: #### CBC, RUBIGG, SYPHGX, HBSAG, HIV12C #### [address] [place] [address] SYPHILIS IGG WITH Collected: 04/19/2018 Status: F Source: [facility] 10:15 AM [facility] REPOSITORY TYPE CODE TESTS RESULT OUT OF REFERENCE UNITS RANGE LAB SYPHQL Nonreactive Syphilis IgG, Nonreactive Qual Result Comment: In conjunction with this result, the immune status of the patient should be evaluated based on their clinical status, related risk factors, and other diagnostic test results. LAB SYPHLG AI Syphilis IgG <0.2 Result Comment: Antibody index is interpreted as follows: Non reactive SPECIMENS <=0.8 Weak reactive SPECIMENS 0.9 to 5.9 Reactive SPECIMENS >=6.0 Performed By: #### CBC, RUBIGG, SYPHGX, HBSAG, HIV12C #### [id number] [place] [address] HEPATITIS B SURF. AG Collected: 04/19/2018 Status: F Source: [place] 10:15 AM [facility] REPOSITORY TYPE CODE TESTS RESULT OUT OF REFERENCE UNITS RANGE LAB HBSAG Negative Hepatitis B Negative Surf. Ag Performed By: #### CBC, RUBIGG, SYPHGX, HBSAG, HIV12C #### [id number] [place] [address] HIV 12 COMBO (AG/AB) Collected: 04/19/2018 Status: F Source: [place] 10:15 AM [facility] REPOSITORY TYPE CODE TESTS RESULT OUT OF REFERENCE UNITS RANGE LAB HVAGAB Non Reactive HIV Non Reactive 12 Ag/Ab Result Comment: (NOTE) HIV Information: [place] Rev. Code 3701.243(E): This information has been disclosed to you from confidential records protected from disclosure by state law. You shall make no further disclosure of this information without the specific, written, and informed release of the individual to whom it pertains, or as otherwise permitted by state law. A general authorization for the release of medical or other information is not sufficient for the purpose of the release of HIV test results or diagnoses. Performed By: #### CBC, RUBIGG, SYPHGX, HBSAG, HIV12C #### [place] [address] TYPE AND SCR,PRENATL Collected: 04/19/2018 Status: F Source: [place] 10:15 AM [facility] REPOSITORY TYPE CODE TESTS RESULT OUT OF REFERENCE UNITS RANGE LAB %ABR A ABO/RH(D) POSITIVE LAB % Antibody NEG Screen Performed By: #### TSPN #### [place] [address] TOXICOLOGY SCREEN,UR Collected: 04/19/2018 Status: F Source: [place] 10:15 AM [facility] REPOSITORY TYPE CODE TESTS RESULT OUT OF REFERENCE UNITS RANGE LAB UPCP2 Negative Negative Phencyclidin e, Urine Result Comment: Cutoff threshold at 25 ng/mL. LAB UBENZ2 Negative Benzodiazepines, Ur Negative Result Comment: Cutoff threshold at 200 ng/mL. LAB UCOC2 Negative Cocaine, Negative Urine Result Comment: Cutoff threshold at 300 ng/mL. LAB UAMPH2 Negative Amphetamines, Urine Negative Result Comment: Cutoff threshold at 1000 ng/mL. LAB UTHC2 Negative Cannabinoids, Urine Negative Result Comment: Cutoff threshold at 50 ng/mL. LAB UOPI2 Negative Opiates, Negative Urine Result Comment: Cutoff threshold at 300 ng/mL. LAB UBARB2 Negative Barbiturates, Urine Negative Result Comment: Cutoff threshold at 200 ng/mL. LAB UETOH <11 mg/dL <11 Ethanol, Urine LAB UOXYC Negative Oxycodone, Negative Urine Result Comment: Cutoff threshold at 100 ng/mL. Comment: Immunoassay screen only. Cross reactivity with other substances can occur with immunoassay screening. Detection of any drug(s) in this urine toxicology panel is presumptive only. These tests are for med ical purposes only and should not be used for compliance monitoring, legal, or forensic use. In clinical settings, confirmatory testing is at the practitioner's discretion [1]. If clinically indicated, confirmation by high specificity, quantitative methodology may be requested on the same speci men through Client Services ([phone]) if contacted within 48 hours of initial testing. [1]Substance Abuse and Mental Health Services Administration (2012). Clinical Drug Testing in Primary Care Technical Assistance Publication Series 32. Department of Health and Human Services, [place], p.10. These tests were developed and their performance characteristics determined by [facility] ( [facility]). They have not been cleared or a pproved by the FDA. [facility] is regulated under CLIA as qualified to perform high complexity testing. These tests are used for clinical purposes. They should not be regarded as investigational or for research. Performed By: #### UTOX2 #### [facility] [address], [place] [address] CYTOLOGY Observed: 04/19/2018 Status: F Source: [place] 9:57 AM [facility] REPOSITORY Specimen originated from [facility] Specimen #: [id number] Submitting Physician: SARA REVELES CNM SPECIMEN SUBMITTED A: CERVICAL, SCREENING, FLUID FINAL DIAGNOSIS A. CERVICAL, SCREENING, FLUID Satisfactory for interpretation. No endocervical component. Negative for intraepithelial lesion or malignancy. This specimen has been analyzed by the [employer] Imaging System, an automated imaging and review system, which assists the laboratory in evaluating cells on ThinPrep Pap tests. Following automated imaging, selected miramontes from every slide are reviewed by a field application engineer. AYSHA Hough (ASCP) (Electronic Signature) CLINICAL DATA ROUTINE, HPV Testing: Yes, Reflex HPV for ASCUS Date of Last Menstrual Period: 02/22/2018 Menstrual History: Clinical History: H/O ASCUS: 2015 STAINS A: CERVICAL, SCREENING, FLUID THIN PREP TABLE INSPECTOR Jerilyn Rose M.D., Nuclear Reactor Operator Date of Report: 04/26/2018 Date of Procedure: 04/19/2018 Date of Receipt: 04/20/2018 Submitted by: SARA REVELES CNM Location: [facility] Diagnostic interpretation performed at [facility], [address] [place] [address]. The Pap Smear is a screening test for cervical cancer. False negative results occur with all screening tests, emphasizing the need for rescreening at recommended intervals, and clinical correlation. GC/CHLAMYDIA AMPLIF Collected: 04/19/2018 Status: F Source: [place] 9:30 AM [facility] REPOSITORY TYPE CODE TESTS RESULT OUT OF REFERENCE UNITS RANGE LAB GCCTSR GC/Chlam Amp Cervix Source LAB GCAMPL GC Negative Amplification for Neisseria gonorrhoeae by amplification. LAB CLAMPL Chlamydia Negative Amplif for Chlamydia trachomatis by amplification. Performed By: #### GCCT #### [facility] [address] [place] [address] PROGRESS Observed: 04/19/2018 Status: COMPLETED Source: [place] 9:10 AM [facility] REPOSITORY HNO ID: [id number] Author: Sara Reveles Service: (none) Author Type: Discharge Specialist Type: Progress Notes Filed: 04/19/2018 12:25 PM Note Text: Account Support Manager offered: Patient declines. INITIAL OB ASSESSMENT OB Provider: Sara Reveles CNM HPI: Karissa De Leon is a 27 year old female here to establish Obstetrical Care. Patient's last menstrual period was 02/22/2018 (exact date). from OB Dating Form. Cycle length: 21-35 days Complaints: nausea without vomiting was planned. Obstetric History T1 L1 SAB0 TAB1 Ectopic0 Multiple0 Live Births1 Prior : never History of 4th degree laceration: No Patient's Risk Screening for delivery: History of abnormal pap: Yes Prior treatment for cervical dysplasia: LEEP. History of STDs: HPV Tobacco use: Yes, uses chewing tobacco. Stopped in early , quit with positive test. 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 No Marital Status: Partner: Name: Tamir De Leon Age: 27 Occupation: [employer] Gender: male History of STDs: None PAST MEDICAL HISTORY Diagnosis Date - Abnormal Pap smear of cervix - anxiety/depression - Asthma - Cervical high risk HPV (human papillomavirus) test positive 2007 ongoing - Hypertension 2014 - Latex allergy - Moderate dysplasia of cervix 2011 Mild dysplasia 2008 - Multiple drug allergies - PONV (postoperative nausea and vomiting) - Scarlet fever 1990 - Scoliosis - TMJ (dislocation of temporomandibular joint) PAST SURGICAL HISTORY Procedure Laterality Date - CERVIX UTERI CONIZA LP ELCTRO EXCI 08/09/12 LEEP-Cervix - COLPOSCOPY (VAGINOSCOPY) 2011; 2008; 2009 Colposcopy - DANDC, DIAG AND/OR THERAPEUTIC Dilation AND curettage - HAND/FINGER SURGERY UNLISTED 2008 trigger finger released left hand-ring finger Current Outpatient Prescriptions on File Prior to Visit: L.acid/L.casei/B.bif/B.maggi/FOS (PROBIOTIC BLEND ORAL) Take by mouth. VITAMIN B COMPLEX (B COMPLEX 1 ORAL) Take by mouth. vit 07-ppfe-ktman-dha ( + DHA) 28 mg iron- 975 mcg-200 mg cmpk Take 1 tablet by mouth once daily. No current facility-administered medications on file prior to visit. Review of Systems: GENERAL: Negative for: Fever or Chills HEENT: Negative for: Impaired Vision, Ringing in Ears, Nosebleeds. Migraines with aura, had one two days ago, unable to take medication during . NECK: Negative for: Swelling, Pain, Stiffness RESPIRATORY: Negative for: Cough, Shortness of breath, Wheezing GASTROINTESTINAL: Negative for: Heartburn, Constipation, Diarrhea, Blood in stool, Vomiting MUSCULOSKELETAL: Negative for: Muscle or joint pain, stiffness, Joint swelling NEUROLOGIC/PSYCHIATRIC: Negative for: Weakness, Paralysis, Numbness, Tingling, Tremor, Anxiety, Depression, Memory loss SKIN: Negative for: Rash, Itching GENITOURINARY: Negative for: vaginal itching, vaginal discharge, hematuria or dysuria PHYSICAL EXAM: Ht 5' 4 (1.63m) Wt 195 lb (88.5kg) LMP 02/22/2018 BMI 33.46 kg/(m2). GENERAL: pleasant female in no apparent distress DERMATOLOGY: Normal, without lesions, non-icteric and non-hirsute NECK: Supple, full range of motion, no adenopathy and thyroid normal CHEST: Clear to auscultation Normal inspiratory effort Regular rate and rhythm No murmurs, clicks, rubs or gallops BREAST: soft, non-tender, symmetric, no dominant mass, normal nipple-areolar complex, no lymphadenopathy and no nipple discharge ABDOMEN: soft, non-tender and no masses NEURO: alert and oriented x3,exam grossly non-focal PELVIS: External genitalia normal without lesions. Perineal body intact. No vaginal or cervical lesions. Cervix closed. Uterus 6-8 week size. No adnexal masses or tenderness. Clinical Pelvimetry: Pelvimetry clinically assessed as adequate Limited OB ultrasound exam: single intrauterine , positive cardiac activity and crown-rump length 7w1d ASSESSMENT: 27 year old at 8w0d gestational age PLAN: 1) Patient oriented to practice. Discussed nutrition, folic acid supplementation, dietary guidelines, exercise, smoking, alcohol, caffeine, and drug use. Discussed routine OB labs including STD/HIV. Discussed aneuploidy screening options including serum screening and nuchal translucency. Would like this done, order placed CF carrier screening discussed and accepted. Want to check with Insurance first before draw. 2) 1hr GCT done today. 3) Dating U/S due to irregular menses. Today's unofficial U/S -6d. 4) Recommend Magnesium Glycinate 200mg PO BID, Riboflavin 400mg PO once daily, CoQ10 100mg PO once daily and chiropractor for migraine prevention. Follow up in 4 weeks or sooner prn. SBIRT Karissajose antonio De Leon was given the 4's screening tool. Karissa answered as follows: OB Opioid Screening - Last Recorded (since 07/23/2017) Did any of your parents have a problem with alcohol or other drug use? (!) Yes (Both parents are alcoholics and mother also uses drugs) Does your partner have a problem with alcohol or other drug use? No In the past, have you had difficulties in your life because of alcohol or other drugs, including prescription medications? No In the past month have you drunk any alcohol or used other drugs? No Are you taking medication for pain during the either prescribed or not? No Based on the screen and further questions, she is considered at Low risk due to:No past or current use. Positive reinforcement of current behavior. Plan to rescreen early third trimester. Sara Reveles APRN.CNM Observed: 04/12/2018 Status: F Source: [place] URINE CULTURE 3:44 AM [facility] REPOSITORY Sp. Request/Comment: - Specimen received in preservative Culture Result - No growth (<1,000 CFU/ml) Performed By: #### URCUL #### [facility] [address] [place], [place] [address] PROGRESS Observed: 04/05/2018 Status: COMPLETED Source: [place] 9:05 AM [facility] REPOSITORY HNO ID: [id number] Author: Neto Villarreal RN Service: (none) Author Type: (none) Type: Progress Notes Filed: 04/05/2018 9:48 AM Note Text: #: 1, Date: [birth year], Sex: Female, Weight: 7 lb 8 oz (3.402 kg), GA: 37w5d, Delivery: Vaginal, Spontaneous Delivery, Apgar1: None, Apgar5: None, Living: Living, Comments: None #: 2, Date: 2008, Sex: None, Weight: None, GA: None, Delivery: None, Apgar1: None, Apgar5: None, Living: None, Comments: None #: 3, Date: None, Sex: None, Weight: None, GA: None, Delivery: None, Apgar1: None, Apgar5: None, Living: None, Comments: None CNNURSE Observed: 04/05/2018 Status: COMPLETED Source: [place] 8:00 AM [facility] REPOSITORY Nurse Visit (WOOB) KARISSA DE LEON ([id number]) 1990 F Date Time Provider Department 04/05/18 8:00 AM [facility] During your visit today, we recorded the following information about you: Last Period 02/22/18 Neto Villarreal RN 04/05/2018 8:42 AM Signed SEQUENTIAL SCREENINGS The [facility] offers sequential screenings for women who are interested in screenings for chromosomal abnormalities and certain defects during a . The sequential screen combines ultrasound and blood tests to determine the risk of chromosomal abnormalities, including Down's Syndrome (Trisomy 21) and Trisomy 18, as well as open neural tube defects including spina bifida. Ultrasound examination is performed between 11 weeks and 13 weeks gestational age. Blood tests are drawn after the ultrasound and again later in the between 15 and 21 weeks gestational age. Please let your physician know if you are interested in this testing. It will require an appointment with our tool and die technician. This is not an ultrasound performed by a physician in our office during a routine visit. SIGNS AND SYMPTOMS OF LABOR 1. Contractions every 10 minutes or more often 2. Clear, pink, or brownish fluid (water) leaking from vagina 3. Feeling that baby is pushing down, pressure 4. Low, dull backache 5. Cramps that feel like a period 6. Cramps with or without diarrhea If you notice any of the above symptoms, contact our office at [phone] and ask to speak with a nurse. After hours, you can call [facility] at [phone] OR call [facility] at [phone] and ask to have the doctor wildland fire operations specialist paged. If you consider this an emergency, dial 9-1-1 or go to your nearest emergency department. Cord-Blood Banking Up until recently, the umbilical cord--along with the blood that remained in it after a baby was born and the cord cut--was simply discarded by the hospital. Then, in the late , researchers discovered that cord blood possessed unusual properties that made it useful in the treatment of patients with some cancers and other illnesses. While the actual process of collecting cord blood is straightforward, many parents are not even aware that this option now exists, much less familiar with all the issues involved. The case for saving your baby's cord blood The blood running back and forth between your baby and the placenta is full of immature cells called stem cells. Unlike embryonic stem cells, which have the ability to develop into any type of body cell, cord-blood stem cells already are locked into a certain, vital function: making all the different components of the blood, such as platelets, white blood cells, and red blood cells-serving, in effect, like bone marrow. When transfused into a patient whose own blood cells have faulty genetic coding or have been destroyed by chemotherapy or other cancer treatments, the cord-blood cells can implant themselves in the bone marrow and generate legions of new, healthy cells. These days, cord-blood transplants most commonly are used in cancer patients when a donor can't be found for a bone-marrow transplant. The treatment is particularly effective in young patients-the [facility] Blood [facility] reports a 70 percent success rate in children, but only 20 to 40 percent in adults. Researchers envision improving those odds and see many future applications as well, such as curing sickle cell disease and other blood-related genetic illnesses. So there is a possibility that your child, or someone else, may need these super-healthy and versatile cells one day. The drawbacks Aside from not knowing about this medical option, the main reason most people do not save their baby's stem cells is cost. In a private blood bank, the initial costs run from $275 to $1,500. Most also charge a yearly storage fee of $50 to $95. The advantage of using a private bank is that your sample is saved for only you to use. An alternative to private banking Public cord-blood jj are an alternative. These cost no money to use, but your sample is not specifically saved for you. Another person with a more immediate need may use it. If the time should come that you need stem cells, yours may still be available, or you may use donations from other people without charge. You also can direct your sample to go to a relative with an immediate need if the blood type matches. Anyone else needing to use stem cells from a public bank who has not been a donor must pay for it, sometimes tens of thousands of dollars. Will my family benefit from saving stem cells? Right now, situations in which stem cells would be helpful are quite rare. As mentioned earlier, stem-cell transplants are most commonly used for rare genetic conditions and for some types of cancer, including leukemia and lymphoma. And even with these present uses, many questions remain. In cancer treatment, for example, some researchers are concerned about the wisdom of transplanting back into the child the same cells that already showed a propensity to become malignant. Doctors also aren't sure if the number of cells taken at the time of would be enough to treat a full-grown 16-year-old. It is also not completely clear how active the cells would be after years of being stored. The treatment is so new and rare, we just don't have the data yet to resolve these important issues. What do the experts say? The [place] [employer] encourages philanthropic blood banking in public jj, but only for families with a current or potential need. Blood-bank proponents encourage any kind of banking, pointing out that research is getting closer and closer to many diverse, live-saving applications. How do I decide? Each family must weigh the pros and cons for themselves. Some families say that any cost is worth their peace of mind. Others say that in the face of uncertainty about the effectiveness of the treatment, they will use their resources elsewhere. Some choose the middle ground of donating publicly, knowing that their sample might benefit another family, if not themselves. For more information, ask your doctor or nurse, and be sure to check out our article on the technical aspects of cord-blood banking. Technical Aspects of Cord-Blood Banking If you are interested in storing your baby's umbilical-cord blood because of its possible use in emerging medical treatments, you must make arrangements with a blood bank before your child is born. The collection procedure is quite simple: After delivery of the baby, the umbilical cord is clamped and cut in the usual way. The blood that remains in the umbilical-cord vessels is then collected in sterile containers. The blood may be removed from the cord with a large needle or allowed to flow freely, depending on the company's collection system. The containers may look like large test tubes or like the plastic bags used in a blood bank. It does not cause the mother or the baby any pain to collect the blood, and no blood is taken that the baby needs at the moment. The nurse, pipeline executive, or physician will then label the samples, check them over with you, and package them for a special pickup arranged with a commercial carrier. When the blood arrives at the blood-bank facility, it is processed and the parents are notified. It is then kept in an advanced storage system for years. How do I know that my sample is safe? Power outages and bankruptcies potentially could threaten any organization, but so far none have been reported. It is to be hoped that the scientists in these jj would arrange for safe transfer to another facility if the need arose. YOU MUST MAKE ARRANGEMENTS AHEAD OF TIME! Public cord-blood jj--DONATION: [employer] [phone] [facility] Placental Blood Program, [facility] Umbilical Cord Blood Bank, Private cord-blood jj--SAVING FOR YOUR OWN USE: [employer], (I think this is the least expensive) [employer] [phone] [employer], [phone]) [employer] [place] [facility], [phone], [phone] [place] [facility], Cord Blood [facility], [phone]) [employer], An Internet search may provide you with additional listings. Neto Villarreal RN 04/05/2018 9:48 AM Signed #: 1, Date: [birth year], Sex: Female, Weight: 7 lb 8 oz (3.402 kg), GA: 37w5d, Delivery: Vaginal, Spontaneous Delivery, Apgar1: None, Apgar5: None, Living: Living, Comments: None #: 2, Date: 2008, Sex: None, Weight: None, GA: None, Delivery: None, Apgar1: None, Apgar5: None, Living: None, Comments: None #: 3, Date: None, Sex: None, Weight: None, GA: None, Delivery: None, Apgar1: None, Apgar5: None, Living: None, Comments: None Referring Provider: SELF [200] Allergies As of Date: 04/05/2018 Noted Allergy Reaction AMOXICILLIN 06/12/2012 4 - Hives DEMEROL (MEPERIDINE (PF)) 06/12/2012 4 - Hives IMITREX (SUMATRIPTAN) 05/18/2015 14 - Other: See Comments Comments: Chest pain LATEX 07/25/2012 2 - Rash MACROBID (NITROFURANTOIN MONOHYD/*06/12/2012 4 - Hives 11 - Vomiting MILK 06/12/2012 8 - GI Upset 11 - Vomiting MORPHINE 06/12/2012 4 - Hives ORTHO TRI-CYCLEN (21) 06/12/2012 4 - Hives OXYCODONE 06/12/2012 4 - Hives SULFA (SULFONAMIDE ANTIBIOTICS) 06/12/2012 4 - Hives TYLENOL (ACETAMINOPHEN) 06/12/2012 4 - Hives 12 - Shortness of Breath Date Reviewed: 04/05/2018 Reviewed by: Neto Villarreal RN - Fully Assessed Reason for Visit: Care [86] Cmt: Pre-New OB Primary Visit Diagnosis:Hx LEEP (loop electrosurgical excision procedure), cervix, , first trimester [O34.41, Z98.890] Other Visit Diagnoses:History of depression [Z86.59] History of loop electrosurgical excision procedure (LEEP) of cervix affecting , antepartum [O34.40, Z98.890] History of hypertension [Z86.79] History of asthma [Z87.09] Family history of arrhythmia [Z82.49] Patient requested diagnostic testing [Z01.89] Order(s):NICOLASA PT ED FENCE SUPERVISOR [] Order #: [id number]: 1 FUTURE NICOLASA PT ED FENCE SUPERVISOR [] Order #: [id number]: 1 FUTURE NICOLASA PT ED ANESTHESIA [[id number]] Order #: [id number]: 1 FUTURE NICOLASA PT ED FENCE SUPERVISOR [] Order #: [id number]: 1 FUTURE NICOLASA WHAT TO EXPECT DURING YOUR HOSPITAL STAY [] Order #: [id number]: 1 FUTURE NICOLASA PT ED FENCE SUPERVISOR [] Order #: [id number]: 1 FUTURE NICOLASA PT ED FENCE SUPERVISOR [] Order #: [id number]: 1 FUTURE NICOLASA PT ED FENCE SUPERVISOR [] Order #: [id number]. #:[id number]: 1 NICOLASA PT ED FENCE SUPERVISOR [] Order #: [id number]. #:[id number]: 1 NICOLASA PT ED ANESTHESIA [[id number]] Order #: [id number]. #:[id number]: 1 NICOLASA PT ED FENCE SUPERVISOR [] Order #: [id number]. #:[id number]: 1 NICOLASA WHAT TO EXPECT DURING YOUR HOSPITAL STAY [] Order #: [id number]. #:[id number]: 1 NICOLASA PT ED FENCE SUPERVISOR [] Order #: [id number]. #:[id number]: 1 NICOLASA PT ED FENCE SUPERVISOR [] Order #: [id number]. #:[id number]: 1 Prescriptions as of 04/05/2018 Sig: PROBIOTIC BLEND ORAL Take by mouth. B COMPLEX 1 ORAL Take by mouth. VITS,CALCIUM 91-IRON* Take 1 tablet by mouth once d* ALBUTEROL SULFATE CONCENTRATE* Every 4-6 hours for wheeze/prn BENZONATATE 100 MG CAPSULE Take 1 capsule by mouth three* RIZATRIPTAN 10 MG DISINTEGRAT* Take 1 tablet by mouth as nee* Patient not taking: Reported on 04/05/2018 CLINDAMYCIN HCL 150 MG CAPSULE Take 150 mg by mouth four sasha* ASPIRIN-CAFFEINE 500 MG-32.5 * Take 3 tablets by mouth once * PROPRANOLOL 20 MG TABLET Take 1 tablet by mouth once d* HYDROXYZINE HCL 25 MG TABLET Take 1 tablet by mouth every * Patient not taking: Reported on 04/05/2018 COMPOUNDED PRESCRIPTION [employer] skin [facility] nails * Medication notes this encounter ALBUTEROL SULFATE CONCENTRATE 2.5 MG/0.5 ML SOLUTION FOR NEBULIZATION >> Neto Villarreal RN 04/05/2018 8:11 AM >> NETO VILLARREAL RN [facility] April 05, 2018 8:11 AM Has not used in 5-6 years COMPOUNDED PRESCRIPTION >> Neto Villarreal RN 04/05/2018 8:12 AM >> NETO VILLARREAL RN [facility] April 05, 2018 8:12 AM Pt no longer taking Problem List As Of Date 04/05/2018 Noted Resolved 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 Migraine with aura and without status migrainos*INVALID FOR* Priority: A Mild intermittent asthma without complication [*INVALID FOR* Priority: A Depression [F32.9] INVALID FOR* Priority: A Obesity, Class I, BMI 30-34.9 [E66.9] INVALID FOR* Priority: B History of depression [Z86.59] INVALID FOR* More... History of loop electrosurgical excision proced*INVALID FOR* More... History of hypertension [Z86.79] INVALID FOR* More... History of asthma [Z87.09] INVALID FOR* More... Family history of arrhythmia [Z82.49] INVALID FOR* More... Patient requested diagnostic testing [Z01.89] INVALID FOR* More... Other instructions from your clinician: SEQUENTIAL SCREENINGS [facility] offers sequential screenings for women who are interested in screenings for chromosomal abnormalities and certain defects during a . The sequential screen combines ultrasound and blood tests to determine the risk of chromosomal abnormalities, including Down's Syndrome (Trisomy 21) and Trisomy 18, as well as open neural tube defects including spina bifida. Ultrasound examination is performed between 11 weeks and 13 weeks gestational age. Blood tests are drawn after the ultrasound and again later in the between 15 and 21 weeks gestational age. Please let your physician know if you are interested in this testing. It will require an appointment with our tool and die technician. This is not an ultrasound performed by a physician in our office during a routine visit. SIGNS AND SYMPTOMS OF LABOR 1. Contractions every 10 minutes or more often 2. Clear, pink, or brownish fluid (water) leaking from vagina 3. Feeling that baby is pushing down, pressure 4. Low, dull backache 5. Cramps that feel like a period 6. Cramps with or without diarrhea If you notice any of the above symptoms, contact our office at [phone] and ask to speak with a nurse. After hours, you can call doctors registry at [phone] OR call [facility] at [phone] and ask to have the doctor wildland fire operations specialist paged. If you consider this an emergency, dial 9-1-1 or go to your nearest emergency department. Cord-Blood Banking Up until recently, the umbilical cord--along with the blood that remained in it after a baby was born and the cord cut--was simply discarded by the hospital. Then, in the late 1980s, researchers discovered that cord blood possessed unusual properties that made it useful in the treatment of patients with some cancers and other illnesses. While the actual process of collecting cord blood is straightforward, many parents are not even aware that this option now exists, much less familiar with all the issues involved. The case for saving your baby's cord blood The blood running back and forth between your baby and the placenta is full of immature cells called stem cells. Unlike embryonic stem cells, which have the ability to develop into any type of body cell, cord-blood stem cells already are locked into a certain, vital function: making all the different components of the blood, such as platelets, white blood cells, and red blood cells-serving, in effect, like bone marrow. When transfused into a patient whose own blood cells have faulty genetic coding or have been destroyed by chemotherapy or other cancer treatments, the cord-blood cells can implant themselves in the bone marrow and generate legions of new, healthy cells. These days, cord-blood transplants most commonly are used in cancer patients when a donor can't be found for a bone-marrow transplant. The treatment is particularly effective in young patients- the [facility] Cord Blood [facility] reports a 70 percent success rate in children, but only 20 to 40 percent in adults. Researchers envision improving those odds and see many future applications as well, such as curing sickle cell disease and other blood-related genetic illnesses. So there is a possibility that your child, or someone else, may need these super-healthy and versatile cells one day. The drawbacks Aside from not knowing about this medical option, the main reason most people do not save their baby's stem cells is cost. In a private blood bank, the initial costs run from $275 to $1,500. Most also charge a yearly storage fee of $50 to $95. The advantage of using a private bank is that your sample is saved for only you to use. An alternative to private banking Public cord-blood jj are an alternative. These cost no money to use, but your sample is not specifically saved for you. Another person with a more immediate need may use it. If the time should come that you need stem cells, yours may still be available, or you may use donations from other people without charge. You also can direct your sample to go to a relative with an immediate need if the blood type matches. Anyone else needing to use stem cells from a public bank who has not been a donor must pay for it, sometimes tens of thousands of dollars. Will my family benefit from saving stem cells? Right now, situations in which stem cells would be helpful are quite rare. As mentioned earlier, stem-cell transplants are most commonly used for rare genetic conditions and for some types of cancer, including leukemia and lymphoma. And even with these present uses, many questions remain. In cancer treatment, for example, some researchers are concerned about the wisdom of transplanting back into the child the same cells that already showed a propensity to become malignant. Doctors also aren't sure if the number of cells taken at the time of would be enough to treat a full-grown 16-year-old. It is also not completely clear how active the cells would be after years of being stored. The treatment is so new and rare, we just don't have the data yet to resolve these important issues. What do the experts say? The [place] [employer] encourages philanthropic blood banking in public jj, but only for families with a current or potential need. Blood-bank proponents encourage any kind of banking, pointing out that research is getting closer and closer to many diverse, live-saving applications. How do I decide? Each family must weigh the pros and cons for themselves. Some families say that any cost is worth their peace of mind. Others say that in the face of uncertainty about the effectiveness of the treatment, they will use their resources elsewhere. Some choose the middle ground of donating publicly, knowing that their sample might benefit another family, if not themselves. For more information, ask your doctor or nurse, and be sure to check out our article on the technical aspects of cord-blood banking. Technical Aspects of Cord-Blood Banking If you are interested in storing your baby's umbilical- cord blood because of its possible use in emerging medical treatments, you must make arrangements with a blood bank before your child is born. The collection procedure is quite simple: After delivery of the baby, the umbilical cord is clamped and cut in the usual way. The blood that remains in the umbilical-cord vessels is then collected in sterile containers. The blood may be removed from the cord with a large needle or allowed to flow freely, depending on the company's collection system. The containers may look like large test tubes or like the plastic bags used in a blood bank. It does not cause the mother or the baby any pain to collect the blood, and no blood is taken that the baby needs at the moment. The nurse, pipeline executive, or physician will then label the samples, check them over with you, and package them for a special pickup arranged with a commercial carrier. When the blood arrives at the blood- bank facility, it is processed and the parents are notified. It is then kept in an advanced storage system for years. How do I know that my sample is safe? Power outages and bankruptcies potentially could threaten any organization, but so far none have been reported. It is to be hoped that the scientists in these jj would arrange for safe transfer to another facility if the need arose. YOU MUST MAKE ARRANGEMENTS AHEAD OF TIME! Public cord-blood jj--DONATION: [employer] [phone] [facility] Placental Blood Program, [facility] Umbilical Cord Blood Bank, Private cord-blood jj--SAVING FOR YOUR OWN USE: [employer], (I think this is the least expensive) [employer] [phone] [facility], ([phone]) [employer] [place] [facility], [phone], [phone] [place] [facility], Cord Blood Registry, ([phone]) [employer], An Internet search may provide you with additional listings. Disposition: Return in 2 weeks (on 04/19/2018) for New OB with Sara Abdirizak. Follow-up and Disposition History Recorded Encounter Status:Closed by NETO VILLARREAL RN on 04/05/18 PROGRESS Observed: 02/26/2018 Status: COMPLETED Source: [place] 1:16 PM [facility] REPOSITORY HNO ID: [id number] Author: Priscilla Mcmillan Service: (none) Author Type: Registered Dietitian Type: Progress Notes Filed: 02/28/2018 9:32 AM Note Text: Nutritional Therapy: Re-Assessment Weight loss PAIN: Is the patient having any pain that is interfering with oral / enteral intake? No 0 on a scale of 0 to 10 PROGRESS: Nutrition Intervention (date of last encounter 01/29/18): 1. For shake use a plant based protein powder (20 grams protein; 100-150 calories) 2. Include protein with each meal. Ensure only 1/4 plate starch 3. Follow the Plate Method at lunch and dinner: Use a 9 plate - 1/2 plate vegetables-non starchy such as green beans, greens, broccoli, cauliflower, etc (1 serving of fruit optional outside of plate) - 1/4 plate lean protein-primarily chicken, turkey fish, lean red 1-2 x per week at most (size of palm) - 1/4 plate whole grain or starchy vegetable such as corn, peas, potatoes, beans (size of fist, 1 cup) 4. Choose whole grain, high fiber breads and cereals 5. Consider tracking intake aiming for 9106-0954 40% carb, 30%fat and 30% protein 6. If able aim for some cardio most days, discuss medication options of asthma with provider CHANGES IN TREATMENT: Patient met goal(s): Yes Actions to implement interventions: Tracking on keto diet Will start walking More active around the house Diet History: Breakfast - shake-fruit, malian yogurt, almond milk, protein powder; on weekends just coffee Snack - no Lunch - salads, veggies, cheese, tomatoes with meat, chicken/pulled pork with quac salsa with sour cream and olive oil water or tea Snack - not usually. Occ dried salami, cheese stick in meat; walnuts or pecans Dinner - lovelace, chicken, bunless burgers with mashed cauliflower; seafood with riced cauliflower, pork tenderloin; pork and sour kraut; water or coffee Snack - not usually Beverages - water, coffee Vitamins/Supplements - B complex CLINICAL IMPRESSIONS: good REVISIONS IN DIAGNOSIS: Diagnosis: has not changed. Allergies: Amoxicillin; Demerol [Meperidine (Pf)]; Imitrex [Sumatriptan]; Latex; Macrobid [Nitrofurantoin Monohyd/M-Cryst]; Milk; Morphine; Ortho Tri-Cyclen (21); Oxycodone; Sulfa (Sulfonamide Antibiotics); Tylenol [Acetaminophen] Medications: Current Outpatient Prescriptions: VITAMIN B COMPLEX (B COMPLEX 1 ORAL) Take by mouth. Disp: Rfl: vit 32-ammo-jiije-dha ( + DHA) 28 mg iron- 975 mcg-200 mg cmpk Take 1 tablet by mouth once daily. Disp: 30 Each Rfl: 11 albuterol (PROVENTIL) 2.5 mg/0.5 mL nebulizer solution Every 4-6 hours for wheeze/prn Disp: 50 Vial Rfl: 0 benzonatate (TESSALON PERLE) 100 mg capsule Take 1 capsule by mouth three times daily as needed for Cough. Disp: 30 capsule Rfl: 0 rizatriptan (MAXALT-JAVA DESIGNER) 10 mg disintegrating tablet Take 1 tablet by mouth as needed. May repeat in 2 hours if needed Disp: 18 tablet Rfl: 1 clindamycin (CLEOCIN) 150 mg capsule Take 150 mg by mouth four times daily. As needed for bad tooth Disp: Rfl: aspirin-caffeine 500-32.5 mg tab Take 3 tablets by mouth once daily. Disp: Rfl: propranolol (INDERAL) 20 mg tablet Take 1 tablet by mouth once daily. Disp: 90 tablet Rfl: 0 hydrOXYzine HCl (ATARAX) 25 mg tablet Take 1 tablet by mouth every 8 hours as needed. Disp: 270 tablet Rfl: 0 COMPOUNDED PRESCRIPTION [employer] Hair skin and nails one tablet at bedtime. Disp: Rfl: 0 No current facility-administered medications for this visit. (currently taking) Anthropometrics: Height: Last 1 Encounter Ht Readings: Date: Ht: 02/26/2018 161.9 cm (5' 3.75) Current weight: Last 1 Encounter Wt Readings: Date: Wt: 02/26/2018 91.9 kg (202 lb 8 oz) Body mass index is 35.03 kg/(m2). Resting Metabolic Rate: 1630 NUTRITION ASSESSMENT: Malnutrition Screening Significant unintentional weight loss? No Eating less than 75% of usual intake for more than 2 weeks? No RECOMMENDED MALNUTRITION DIAGNOSIS: NO MALNUTRITION IDENTIFIED Educational materials provided: none this visit READINESS TO LEARN Cognitive ability: Alert and oriented Motivation to learn: Interested Family support: Unable to assess - Family not present Instruction provided to: Patient Patient learns best by: Individual Instruction Factors affecting learning: None Physical limitations affecting learning: None Likelihood of Adherence: Moderate Patient presents for follow up MNT as relates to weight control. Other medical issues migraines, asthma, anxiety. Has history of eating disorder. Spouse doing ketogentic diet. Trackign intake and following healthy lower carb plan. Note 13 pounds lost since last visit .Doign well with plan. Nutrition Diagnosis: Overweight Obesity, related to; excess energy intake and physical inactivity, as evidenced by BMI above normative standard for age and gender. Nutrition Intervention 02/26/2018: modify type amount of food or beverage 1. Continue current plan and exercise 2. Include protein with each meal. Ensure only 1/4 plate starch 3. Follow the Plate Method at lunch and dinner: Use a 9 plate - 1/2 plate vegetables-non starchy such as green beans, greens, broccoli, cauliflower, etc (1 serving of fruit optional outside of plate) - 1/4 plate lean protein-primarily chicken, turkey fish, lean red 1-2 x per week at most (size of palm) - 1/4 plate whole grain or starchy vegetable such as corn, peas, potatoes, beans (size of fist, 1 cup) 4. Choose whole grain, high fiber breads and cereals 5. Consider tracking intake aiming for 6246-5648 40% carb, 30%fat and 30% protein Nutrition Monitoring AND Evaluation: Weight loss Criteria: patient update Need for Follow up: 6 weeks Referred/Supervised by: Justino BOLAÑOS Billing Type: Re-assess/15 min 2 units SIGNATURE: Priscilla Mcmillan MS RD LD PATIENT NAME: Karissa De Leon DATE: February 26, 2018 TIME: 1:16 PM CNCNPATED Observed: 02/26/2018 Status: COMPLETED Source: [place] 1:15 PM [facility] REPOSITORY Education (NUTRWS) KARISSA DE LEON ([id number]) 1990 F Date Time Provider Department 02/26/18 1:15 PM PRISCILLA MCMILLAN) NUTRBRYCE Reason for Visit: Patient Education [91] Reassessment [674] Progress Notes: MS ALE Mclaughlin 02/28/2018 9:32 AM Signed Nutritional Therapy: Re-Assessment Weight loss PAIN: Is the patient having any pain that is interfering with oral / enteral intake? No 0 on a scale of 0 to 10 PROGRESS: Nutrition Intervention (date of last encounter 01/29/18): 1. For shake use a plant based protein powder (20 grams protein; 100-150 calories) 2. Include protein with each meal. Ensure only 1/4 plate starch 3. Follow the Plate Method at lunch and dinner: Use a 9 plate - 1/2 plate vegetables-non starchy such as green beans, greens, broccoli, cauliflower, etc (1 serving of fruit optional outside of plate) - 1/4 plate lean protein-primarily chicken, turkey fish, lean red 1-2 x per week at most (size of palm) - 1/4 plate whole grain or starchy vegetable such as corn, peas, potatoes, beans (size of fist, 1 cup) 4. Choose whole grain, high fiber breads and cereals 5. Consider tracking intake aiming for 3723-5180 40% carb, 30%fat and 30% protein 6. If able aim for some cardio most days, discuss medication options of asthma with provider CHANGES IN TREATMENT: Patient met goal(s): Yes Actions to implement interventions: Tracking on keto diet Will start walking More active around the house Diet History: Breakfast - shake-fruit, malian yogurt, almond milk, protein powder; on weekends just coffee Snack - no Lunch - salads, veggies, cheese, tomatoes with meat, chicken/pulled pork with quac salsa with sour cream and olive oil water or tea Snack - not usually. Occ dried salami, cheese stick in meat; walnuts or pecans Dinner - lovelace, chicken, bunless burgers with mashed cauliflower; seafood with riced cauliflower, pork tenderloin; pork and sour kraut; water or coffee Snack - not usually Beverages - water, coffee Vitamins/Supplements - B complex CLINICAL IMPRESSIONS: good REVISIONS IN DIAGNOSIS: Diagnosis: has not changed. Allergies: Amoxicillin; Demerol [Meperidine (Pf)]; Imitrex [Sumatriptan]; Latex; Macrobid [Nitrofurantoin Monohyd/M-Cryst]; Milk; Morphine; Ortho Tri- Cyclen (21); Oxycodone; Sulfa (Sulfonamide Antibiotics); Tylenol [Acetaminophen] Medications: Current Outpatient Prescriptions: VITAMIN B COMPLEX (B COMPLEX 1 ORAL) Take by mouth. Disp: Rfl: vit 43-madi-zrdhg-dha ( + DHA) 28 mg iron- 975 mcg-200 mg cmpk Take 1 tablet by mouth once daily. Disp: 30 Each Rfl: 11 albuterol (PROVENTIL) 2.5 mg/0.5 mL nebulizer solution Every 4-6 hours for wheeze/prn Disp: 50 Vial Rfl: 0 benzonatate (TESSALON PERLE) 100 mg capsule Take 1 capsule by mouth three times daily as needed for Cough. Disp: 30 capsule Rfl: 0 rizatriptan (MAXALT-JAVA DESIGNER) 10 mg disintegrating tablet Take 1 tablet by mouth as needed. May repeat in 2 hours if needed Disp: 18 tablet Rfl: 1 clindamycin (CLEOCIN) 150 mg capsule Take 150 mg by mouth four times daily. As needed for bad tooth Disp: Rfl: aspirin-caffeine 500-32.5 mg tab Take 3 tablets by mouth once daily. Disp: Rfl: propranolol (INDERAL) 20 mg tablet Take 1 tablet by mouth once daily. Disp: 90 tablet Rfl: 0 hydrOXYzine HCl (ATARAX) 25 mg tablet Take 1 tablet by mouth every 8 hours as needed. Disp: 270 tablet Rfl: 0 COMPOUNDED PRESCRIPTION [employer] Hair skin and nails one tablet at bedtime. Disp: Rfl: 0 No current facility-administered medications for this visit. (currently taking) Anthropometrics: Height: Last 1 Encounter Ht Readings: Date: Ht: 02/26/2018 161.9 cm (5' 3.75) Current weight: Last 1 Encounter Wt Readings: Date: Wt: 02/26/2018 91.9 kg (202 lb 8 oz) Body mass index is 35.03 kg/(m2). Resting Metabolic Rate: 1630 NUTRITION ASSESSMENT: Malnutrition Screening Significant unintentional weight loss? No Eating less than 75% of usual intake for more than 2 weeks? No RECOMMENDED MALNUTRITION DIAGNOSIS: NO MALNUTRITION IDENTIFIED Educational materials provided: none this visit READINESS TO LEARN Cognitive ability: Alert and oriented Motivation to learn: Interested Family support: Unable to assess - Family not present Instruction provided to: Patient Patient learns best by: Individual Instruction Factors affecting learning: None Physical limitations affecting learning: None Likelihood of Adherence: Moderate Patient presents for follow up MNT as relates to weight control. Other medical issues migraines, asthma, anxiety. Has history of eating disorder. Spouse doing ketogentic diet. Trackign intake and following healthy lower carb plan. Note 13 pounds lost since last visit .Doign well with plan. Nutrition Diagnosis: Overweight Obesity, related to; excess energy intake and physical inactivity, as evidenced by BMI above normative standard for age and gender. Nutrition Intervention 02/26/2018: modify type amount of food or beverage 1. Continue current plan and exercise 2. Include protein with each meal. Ensure only 1/4 plate starch 3. Follow the Plate Method at lunch and dinner: Use a 9 plate - 1/2 plate vegetables-non starchy such as green beans, greens, broccoli, cauliflower, etc (1 serving of fruit optional outside of plate) - 1/4 plate lean protein-primarily chicken, turkey fish, lean red 1-2 x per week at most (size of palm) - 1/4 plate whole grain or starchy vegetable such as corn, peas, potatoes, beans (size of fist, 1 cup) 4. Choose whole grain, high fiber breads and cereals 5. Consider tracking intake aiming for 5668-6331 40% carb, 30%fat and 30% protein Nutrition Monitoring AND Evaluation: Weight loss Criteria: patient update Need for Follow up: 6 weeks Referred/Supervised by: Mulugeta/Abner BOLAÑOS Billing Type: Re-assess/15 min 2 units SIGNATURE: Priscilla Mcmillan MS RD LD PATIENT NAME: Karissa De Leon DATE: February 26, 2018 TIME: 1:16 PM Primary Visit Diagnosis:Class 2 obesity due to excess calories without serious comorbidity with body mass index (BMI) of 37.0 to 37.9 in adult [E66.09, Z68.37] Other Visit Diagnosis:Dietary counseling [Z71.3] During your visit today, we recorded the following information about you: Weight Height 91.9 kg 1.619 m Allergies As of Date: 02/26/2018 Noted Allergy Reaction AMOXICILLIN 06/12/2012 4 - Hives DEMEROL (MEPERIDINE (PF)) 06/12/2012 4 - Hives IMITREX (SUMATRIPTAN) 05/18/2015 14 - Other: See Comments Comments: Chest pain LATEX 07/25/2012 2 - Rash MACROBID (NITROFURANTOIN MONOHYD/*06/12/2012 4 - Hives 11 - Vomiting MILK 06/12/2012 8 - GI Upset 11 - Vomiting MORPHINE 06/12/2012 4 - Hives ORTHO TRI-CYCLEN (21) 06/12/2012 4 - Hives OXYCODONE 06/12/2012 4 - Hives SULFA (SULFONAMIDE ANTIBIOTICS) 06/12/2012 4 - Hives TYLENOL (ACETAMINOPHEN) 06/12/2012 4 - Hives 12 - Shortness of Breath Date Reviewed: 02/26/2018 Reviewed by: Priscilla Mcmillan - Fully Assessed Prescriptions as of 02/26/2018 Sig: B COMPLEX 1 ORAL Take by mouth. VITS,CALCIUM 91-IRON* Take 1 tablet by mouth once d* ALBUTEROL SULFATE CONCENTRATE* Every 4-6 hours for wheeze/prn BENZONATATE 100 MG CAPSULE Take 1 capsule by mouth three* RIZATRIPTAN 10 MG DISINTEGRAT* Take 1 tablet by mouth as nee* CLINDAMYCIN HCL 150 MG CAPSULE Take 150 mg by mouth four sasha* ASPIRIN-CAFFEINE 500 MG-32.5 * Take 3 tablets by mouth once * PROPRANOLOL 20 MG TABLET Take 1 tablet by mouth once d* HYDROXYZINE HCL 25 MG TABLET Take 1 tablet by mouth every * COMPOUNDED PRESCRIPTION [employer] Hair skin and nails * Encounter Status:Closed by HIPOLITO MS RD PRISCILLA WORKMAN on 02/28/18 CNCNPATED Observed: 01/29/2018 Status: COMPLETED Source: [place] 1:15 PM [facility] REPOSITORY Education (NUTRWS) KARISSA DE LEON ([id number]) 1990 F Date Time Provider Department 01/29/18 1:15 PM 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 ALLERGIST IMMUNOLOGIST [facility] NUTRWS Reason for Visit: Patient Education [91] Assessment [673] Progress Notes: Priscilla Mcmillan, MS RD JI 01/29/2018 1:55 PM Signed [facility] Nutrition Therapy: Initial Assessment Patient states reason for visit: for weight loss Activity: Patient's exercise is: Activities of 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 No 0 on a scale of 0 to 10 Diet History: Breakfast - shake-2 cups frozen fruit and 1/4 cup plain yogurt water Snack - no Lunch - 11:30-steamable bags (corn/veggies; brussel sprouts); tea-plain, water, dr. Pepper reg Snack - fritos, usually apple sauce, or with fruit, or dawn pudding with fruit Dinner - meat (prok loin/ chops), spaghetti with chicken, tea or water, or unsweet almond milk Snack - not usually, occ something desserty Beverages - water, tea, pop, almond milk Vitamins/Supplements - B complex, will be starting prenatals again don't like chicken Wake at 3:00-and have pickles or olives Allergies: Amoxicillin; Demerol [Meperidine (Pf)]; Imitrex [Sumatriptan]; Latex; Macrobid [Nitrofurantoin Monohyd/M-Cryst]; Milk; Morphine; Ortho Tri- Cyclen (21); Oxycodone; Sulfa (Sulfonamide Antibiotics); Tylenol [Acetaminophen] Medications: Current Outpatient Prescriptions: VITAMIN B COMPLEX (B COMPLEX 1 ORAL) Take by mouth. Disp: Rfl: vit 83-maoh-ggett-dha ( + DHA) 28 mg iron- 975 mcg-200 mg cmpk Take 1 tablet by mouth once daily. Disp: 30 Each Rfl: 11 albuterol (PROVENTIL) 2.5 mg/0.5 mL nebulizer solution Every 4-6 hours for wheeze/prn Disp: 50 Vial Rfl: 0 benzonatate (TESSALON PERLE) 100 mg capsule Take 1 capsule by mouth three times daily as needed for Cough. Disp: 30 capsule Rfl: 0 rizatriptan (MAXALT-JAVA DESIGNER) 10 mg disintegrating tablet Take 1 tablet by mouth as needed. May repeat in 2 hours if needed Disp: 18 tablet Rfl: 1 clindamycin (CLEOCIN) 150 mg capsule Take 150 mg by mouth four times daily. As needed for bad tooth Disp: Rfl: aspirin-caffeine 500-32.5 mg tab Take 3 tablets by mouth once daily. Disp: Rfl: propranolol (INDERAL) 20 mg tablet Take 1 tablet by mouth once daily. Disp: 90 tablet Rfl: 0 hydrOXYzine HCl (ATARAX) 25 mg tablet Take 1 tablet by mouth every 8 hours as needed. Disp: 270 tablet Rfl: 0 COMPOUNDED PRESCRIPTION It Works Hair skin and nails one tablet at bedtime. Disp: Rfl: 0 No current facility-administered medications for this visit. Anthropometrics: Height: Last 1 Encounter Ht Readings: Date: Ht: 01/29/2018 161.9 cm (5' 3.75) Current weight: Last 1 Encounter Wt Readings: Date: Wt: 01/29/2018 97.5 kg (215 lb) Body mass index is 37.19 kg/(m2). Resting Metabolic Rate: 1687 NUTRITION ASSESSMENT: Malnutrition Screening Significant unintentional weight loss? No Eating less than 75% of usual intake for more than 2 weeks? No RECOMMENDED MALNUTRITION DIAGNOSIS: NO MALNUTRITION IDENTIFIED Educational materials provided: none this visit READINESS TO LEARN Cognitive ability: Alert and oriented Motivation to learn: Interested Family support: Unable to assess - Family not present Instruction provided to: Patient Patient learns best by: Individual Instruction Factors affecting learning: None Physical limitations affecting learning: None Patient present for initial MNT as relates to weight control. Other medical issues migraines, asthma, anxiety. Weight history is fluctuations. Highest adult weight current, weight goal initially under 200, preferably 180, felt best at 140 . Has tried increased exercise and extreme restrictions in the past with. Intake noted for typically 3 meals per day, generally high carb diet, limited protein, high dislikes vs texture aversions . States no hunger has history of bulimia in [facility] . Exercise less than recommended and generally sedentary during the day. Exercise limitations reported as asthma. Contributing factors to obesity high carb diet, occ skipped meals, sugar beverages. Nutrition Diagnosis: Overweight Obesity, related to; excess energy intake and physical inactivity, as evidenced by BMI above normative standard for age and gender. Nutrition Intervention 01/29/2018: modify type and amount of food or beverage 1. For shake use a plant based protein powder (20 grams protein; 100-150 calories) 2. Include protein with each meal. Ensure only 1/4 plate starch 3. Follow the Plate Method at lunch and dinner: Use a 9 plate - 1/2 plate vegetables-non starchy such as green beans, greens, broccoli, cauliflower, etc (1 serving of fruit optional outside of plate) - 1/4 plate lean protein-primarily chicken, turkey fish, lean red 1-2 x per week at most (size of palm) - 1/4 plate whole grain or starchy vegetable such as corn, peas, potatoes, beans (size of fist, 1 cup) 4. Choose whole grain, high fiber breads and cereals 5. Consider tracking intake aiming for 5318-0605 40% carb, 30%fat and 30% protein 6. If able aim for some cardio most days, discuss medication options of asthma with provider Nutrition Monitoring AND Evaluation: 1-2 pound weightloss per week Criteria: patient update Need for Follow up: 4-6 weeks Referred/Supervised by: Mulugeta/Abner BOLAÑOS Billing Type: Initial Assess/15 min 3 units SIGNATURE: MS ALE Mclaughlin PATIENT NAME: Karissa De Leon DATE: January 29, 2018 TIME: 1:15 PM MS ALE Mclaughlin 01/29/2018 1:46 PM Signed 1. For shake use a plant based protein powder (20 grams protein; 100-150 calories) 2. Include protein with each meal. Ensure only 1/4 plate starch 3. Follow the Plate Method at lunch and dinner: Use a 9 plate - 1/2 plate vegetables-non starchy such as green beans, greens, broccoli, cauliflower, etc (1 serving of fruit optional outside of plate) - 1/4 plate lean protein-primarily chicken, turkey fish, lean red 1-2 x per week at most (size of palm) - 1/4 plate whole grain or starchy vegetable such as corn, peas, potatoes, beans (size of fist, 1 cup) 4. Choose whole grain, high fiber breads and cereals 5. Consider tracking intake aiming for 2642-8784 40% carb, 30%fat and 30% protein 6. If able aim for some cardio most days, discuss medication options of asthma with provider Other instructions from your clinician: 1. For shake use a plant based protein powder (20 grams protein; 100-150 calories) 2. Include protein with each meal. Ensure only 1/4 plate starch 3. Follow the Plate Method at lunch and dinner: Use a 9 plate - 1/2 plate vegetables-non starchy such as green beans, greens, broccoli, cauliflower, etc (1 serving of fruit optional outside of plate) - 1/4 plate lean protein-primarily chicken, turkey fish, lean red 1-2 x per week at most (size of palm) - 1/4 plate whole grain or starchy vegetable such as corn, peas, potatoes, beans (size of fist, 1 cup) 4. Choose whole grain, high fiber breads and cereals 5. Consider tracking intake aiming for 4195-9401 40% carb, 30%fat and 30% protein 6. If able aim for some cardio most days, discuss medication options of asthma with provider Primary Visit Diagnosis:Class 2 obesity due to excess calories without serious comorbidity with body mass index (BMI) of 37.0 to 37.9 in adult [E66.09, Z68.37] Other Visit Diagnosis:Dietary counseling [Z71.3] During your visit today, we recorded the following information about you: Weight Height 97.5 kg 1.619 m Allergies As of Date: 01/29/2018 Noted Allergy Reaction AMOXICILLIN 06/12/2012 4 - Hives DEMEROL (MEPERIDINE (PF)) 06/12/2012 4 - Hives IMITREX (SUMATRIPTAN) 05/18/2015 14 - Other: See Comments Comments: Chest pain LATEX 07/25/2012 2 - Rash MACROBID (NITROFURANTOIN MONOHYD/*06/12/2012 4 - Hives 11 - Vomiting MILK 06/12/2012 8 - GI Upset 11 - Vomiting MORPHINE 06/12/2012 4 - Hives ORTHO TRI-CYCLEN (21) 06/12/2012 4 - Hives OXYCODONE 06/12/2012 4 - Hives SULFA (SULFONAMIDE ANTIBIOTICS) 06/12/2012 4 - Hives TYLENOL (ACETAMINOPHEN) 06/12/2012 4 - Hives 12 - Shortness of Breath Date Reviewed: 01/05/2018 Reviewed by: Sara ([facility]) Abdirizak - Fully Assessed Prescriptions as of 01/29/2018 Sig: B COMPLEX 1 ORAL Take by mouth. VITS,CALCIUM 91-IRON* Take 1 tablet by mouth once d* ALBUTEROL SULFATE CONCENTRATE* Every 4-6 hours for wheeze/prn BENZONATATE 100 MG CAPSULE Take 1 capsule by mouth three* RIZATRIPTAN 10 MG DISINTEGRAT* Take 1 tablet by mouth as nee* CLINDAMYCIN HCL 150 MG CAPSULE Take 150 mg by mouth four sasha* ASPIRIN-CAFFEINE 500 MG-32.5 * Take 3 tablets by mouth once * PROPRANOLOL 20 MG TABLET Take 1 tablet by mouth once d* HYDROXYZINE HCL 25 MG TABLET Take 1 tablet by mouth every * COMPOUNDED PRESCRIPTION It Works Hair skin and nails * Encounter Status:Closed by HIPOLITO WORKMAN, PRISCILLA on 01/29/18 PROGRESS Observed: 01/29/2018 Status: COMPLETED Source: [place] 1:14 PM [facility] REPOSITORY HNO ID: [id number] Author: Priscilla (Ale) Hipolito Service: (none) Author Type: Registered Dietitian Type: Progress Notes Filed: 01/29/2018 1:55 PM Note Text: [facility] Nutrition Therapy: Initial Assessment Patient states reason for visit: for weight loss Activity: Patient's exercise is: Activities of 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 No 0 on a scale of 0 to 10 Diet History: Breakfast - shake-2 cups frozen fruit and 1/4 cup plain yogurt water Snack - no Lunch - 11:30-steamable bags (corn/veggies; brussel sprouts); tea-plain, water, drDana Pepper reg Snack - fritos, usually apple sauce, or with fruit, or dawn pudding with fruit Dinner - meat (prok loin/ chops), spaghetti with chicken, tea or water, or unsweet almond milk Snack - not usually, occ something desserty Beverages - water, tea, pop, almond milk Vitamins/Supplements - B complex, will be starting prenatals again don't like chicken Wake at 3:00-and have pickles or olives Allergies: Amoxicillin; Demerol [Meperidine (Pf)]; Imitrex [Sumatriptan]; Latex; Macrobid [Nitrofurantoin Monohyd/M-Cryst]; Milk; Morphine; Ortho Tri-Cyclen (21); Oxycodone; Sulfa (Sulfonamide Antibiotics); Tylenol [Acetaminophen] Medications: Current Outpatient Prescriptions: VITAMIN B COMPLEX (B COMPLEX 1 ORAL) Take by mouth. Disp: Rfl: vit 73-yxcw-kzzvj-dha ( + DHA) 28 mg iron- 975 mcg-200 mg cmpk Take 1 tablet by mouth once daily. Disp: 30 Each Rfl: 11 albuterol (PROVENTIL) 2.5 mg/0.5 mL nebulizer solution Every 4-6 hours for wheeze/prn Disp: 50 Vial Rfl: 0 benzonatate (TESSALON PERLE) 100 mg capsule Take 1 capsule by mouth three times daily as needed for Cough. Disp: 30 capsule Rfl: 0 rizatriptan (MAXALT-JAVA DESIGNER) 10 mg disintegrating tablet Take 1 tablet by mouth as needed. May repeat in 2 hours if needed Disp: 18 tablet Rfl: 1 clindamycin (CLEOCIN) 150 mg capsule Take 150 mg by mouth four times daily. As needed for bad tooth Disp: Rfl: aspirin-caffeine 500-32.5 mg tab Take 3 tablets by mouth once daily. Disp: Rfl: propranolol (INDERAL) 20 mg tablet Take 1 tablet by mouth once daily. Disp: 90 tablet Rfl: 0 hydrOXYzine HCl (ATARAX) 25 mg tablet Take 1 tablet by mouth every 8 hours as needed. Disp: 270 tablet Rfl: 0 COMPOUNDED PRESCRIPTION It Works Hair skin and nails one tablet at bedtime. Disp: Rfl: 0 No current facility-administered medications for this visit. Anthropometrics: Height: Last 1 Encounter Ht Readings: Date: Ht: 01/29/2018 161.9 cm (5' 3.75) Current weight: Last 1 Encounter Wt Readings: Date: Wt: 01/29/2018 97.5 kg (215 lb) Body mass index is 37.19 kg/(m2). Resting Metabolic Rate: 1687 NUTRITION ASSESSMENT: Malnutrition Screening Significant unintentional weight loss? No Eating less than 75% of usual intake for more than 2 weeks? No RECOMMENDED MALNUTRITION DIAGNOSIS: NO MALNUTRITION IDENTIFIED Educational materials provided: none this visit READINESS TO LEARN Cognitive ability: Alert and oriented Motivation to learn: Interested Family support: Unable to assess - Family not present Instruction provided to: Patient Patient learns best by: Individual Instruction Factors affecting learning: None Physical limitations affecting learning: None Patient present for initial MNT as relates to weight control. Other medical issues migraines, asthma, anxiety. Weight history is fluctuations. Highest adult weight current, weight goal initially under 200, preferably 180, felt best at 140 . Has tried increased exercise and extreme restrictions in the past with. Intake noted for typically 3 meals per day, generally high carb diet, limited protein, high dislikes vs texture aversions . States no hunger has history of bulimia in [employer] . Exercise less than recommended and generally sedentary during the day. Exercise limitations reported as asthma. Contributing factors to obesity high carb diet, occ skipped meals, sugar beverages. Nutrition Diagnosis: Overweight Obesity, related to; excess energy intake and physical inactivity, as evidenced by BMI above normative standard for age and gender. Nutrition Intervention 01/29/2018: modify type and amount of food or beverage 1. For shake use a plant based protein powder (20 grams protein; 100-150 calories) 2. Include protein with each meal. Ensure only 1/4 plate starch 3. Follow the Plate Method at lunch and dinner: Use a 9 plate - 1/2 plate vegetables-non starchy such as green beans, greens, broccoli, cauliflower, etc (1 serving of fruit optional outside of plate) - 1/4 plate lean protein-primarily chicken, turkey fish, lean red 1-2 x per week at most (size of palm) - 1/4 plate whole grain or starchy vegetable such as corn, peas, potatoes, beans (size of fist, 1 cup) 4. Choose whole grain, high fiber breads and cereals 5. Consider tracking intake aiming for 7177-4775 40% carb, 30%fat and 30% protein 6. If able aim for some cardio most days, discuss medication options of asthma with provider Nutrition Monitoring AND Evaluation: 1-2 pound weightloss per week Criteria: patient update Need for Follow up: 4-6 weeks Referred/Supervised by: Justino EDDYT Billing Type: Initial Assess/15 min 3 units SIGNATURE: Priscilla Mcmillan MS RD LD PATIENT NAME: Karissa De Leon DATE: January 29, 2018 TIME: 1:15 PM HCG, QUANTITATIVE BL Collected: 01/08/2018 Status: F Source: [place] 9:22 AM [facility] REPOSITORY TYPE CODE TESTS RESULT OUT OF REFERENCE UNITS RANGE LAB HCGQT <5.0 mU/mL HCG, Quantitative Bl 0.3 Result Comment: NEGATIVE Performed By: #### HCGQT #### [facility] [address] [address] HCG, QUANTITATIVE BL Collected: 01/05/2018 Status: F Source: [place] 11:19 AM [facility] REPOSITORY TYPE CODE TESTS RESULT OUT OF REFERENCE UNITS RANGE LAB HCGQT <5.0 mU/mL HCG, Quantitative Bl 2.8 Result Comment: NEGATIVE Performed By: #### HCGQT #### [address] [address] Observed: 01/05/2018 Status: F Source: [place] URINE CULTURE 10:59 AM [facility] REPOSITORY Sp. Request/Comment: - Specimen received in preservative Culture Result - No growth (<1,000 CFU/ml) Performed By: #### URCUL #### [place] [address] PROGRESS Observed: 01/05/2018 Status: COMPLETED Source: [place] 10:35 AM [facility] REPOSITORY HNO ID: [id number] Author: Sara Reveles Service: (none) Author Type: Discharge Specialist Type: Progress Notes Filed: 01/05/2018 11:35 AM Note Text: Karissa De Leon is a 27 year old female who presents for problem visit For vaginal bleeding. HPI: Patient and had been trying to conceive since October 2017. LMP 11/26/17, 5w5d EGA by LMP with SNEHA=09/02/18. Had positive test on 12/26/17, has taken 8 test and all were positive. Last night had light cramping in mid to lower abdomen, did some stretching, had bowel movement and noticed spotting on toilet paper. Woke at 4am and started having cramping in back, passed clot about the size of 50 cent piece. This am test was negative. Patient states she is feeling bloating, does not have breast pain like she did in the last 4 weeks. Denies any nausea or vomiting. Tearful today. History of 8 years ago, emotional today. PAST MEDICAL HISTORY Diagnosis Date - Asthma - Cervical high risk HPV (human papillomavirus) test positive 2007 ongoing - Hypertension 2014 - Latex allergy - Moderate dysplasia of cervix 2011 Mild dysplasia 2008 - Multiple drug allergies - PONV (postoperative nausea and vomiting) - Scarlet fever 1990 - Scoliosis - TMJ (dislocation of temporomandibular joint) PAST SURGICAL HISTORY Procedure Laterality Date - CERVIX UTERI CONIZA LP ELCTRO EXCI 08/09/12 LEEP-Cervix - COLPOSCOPY (VAGINOSCOPY) 2011; 2008; 2009 Colposcopy - DANDC, DIAG AND/OR THERAPEUTIC Dilation AND curettage - HAND/FINGER SURGERY UNLISTED 2008 trigger finger released left hand-ring finger FAMILY HISTORY Problem Relation Age of Onset - Asthma Mother - Cancer Maternal Grandfather bladder - Cancer Maternal Grandmother skin - Psychiatry Mother manic depression, bipolar - Heart Sister mur mur Social History Marital status: Spouse name: Years of education: Number of children: Occupational History Occupation Employer Comment [employer] Social History Main Topics Smoking status: Never Smoker Smokeless status: Current User Types: Chew Alcohol use: Yes Comment: seldom 1 per 6 months Drug use: No Sexual activity: Yes Partners with: Male control/protection: Condom Current Outpatient Prescriptions: VITAMIN B COMPLEX (B COMPLEX 1 ORAL) Take by mouth. rizatriptan (MAXALT-JAVA DESIGNER) 10 mg disintegrating tablet Take 1 tablet by mouth as needed. May repeat in 2 hours if needed hydrOXYzine HCl (ATARAX) 25 mg tablet Take 1 tablet by mouth every 8 hours as needed. albuterol (PROVENTIL) 2.5 mg/0.5 mL nebulizer solution Every 4-6 hours for wheeze/prn benzonatate (TESSALON PERLE) 100 mg capsule Take 1 capsule by mouth three times daily as needed for Cough. clindamycin (CLEOCIN) 150 mg capsule Take 150 mg by mouth four times daily. As needed for bad tooth aspirin-caffeine 500-32.5 mg tab Take 3 tablets by mouth once daily. propranolol (INDERAL) 20 mg tablet Take 1 tablet by mouth once daily. COMPOUNDED PRESCRIPTION It Works Hair skin and nails one tablet at bedtime. No current facility-administered medications for this visit. Allergies As of Date: 01/05/2018 Allergen Noted Reaction AMOXICILLIN 06/12/2012 Hives DEMEROL [MEPERIDINE (PF)] 06/12/2012 Hives IMITREX [SUMATRIPTAN] 05/18/2015 Other: See Comments LATEX 07/25/2012 Rash MACROBID [NITROFURANTOIN MONOHYD/*06/12/2012 Hives and Vomiting MILK 06/12/2012 GI Upset and Vomiting MORPHINE 06/12/2012 Hives ORTHO TRI-CYCLEN (21) 06/12/2012 Hives OXYCODONE 06/12/2012 Hives SULFA (SULFONAMIDE ANTIBIOTICS) 06/12/2012 Hives TYLENOL [ACETAMINOPHEN] 06/12/2012 Hives and Shortness of Breath Fully Assessed 01/05/2018 REVIEW OF SYSTEMS Abdomen: No bloating, early satiety, indigestion, or increased flatulence. No abdominal pain, nausea, vomiting, diarrhea, or constipation. Bladder: No dysuria, gross hematuria, urinary frequency, urinary urgency, or incontinence. Breast: No breast lumps, nipple d/c, overlying skin changes, redness or skin retraction. Expanded ROS: N/A Allergies and current medication updated:Yes EXAM: BP 122/74 Wt 211 lb (95.7kg) LMP 11/26/2017 GENERAL: pleasant, female in no apparent distress HEENT: Normocephalic and atraumatic ABDOMEN: soft, non-tender and no masses PELVIC: external genitalia normal, normal Bartholin's glands, urethra, Dumfries's glands, no vulvar lesions, no cervical lesions, good vaginal support,normal appearing perineal body and perianal region. Small amount of blood in vaginal vault, no blood clots. Cervix closed by visual examination and no tissue present at cervical os. BIMANUAL: uterus normal size, shape and consistency, no adnexal masses and non-tender. Cervix closed. NEURO: alert and oriented x3,exam grossly non-focal EXTREMITIES: normal ASSESSMENT AND PLAN: ASSESSMENT/PLAN: 1. Threatened - ICD9: 640.00, ICD10: O20.0 (primary diagnosis) - HCG QUANTITATIVE - HCG QUANTITATIVE - OBSTETRIC ULTRASOUND WHI -Reviewed possible miscarriage vs. Normal IUP. Reviewed bleeding precautions and when to call. Was taking Vitamin B supplement with limited amount of folic acid, PNV sent to pharmacy. -Emotional support provided. -Return to clinic in 3 days after U/S 2. Back pain during - ICD9: 646.80, 724.5, ICD10: O26.899, M54.9 - UA DIP B/O - B COMPLEX 1 ORAL - HCG QUAL UR B/O - URINE CULTURE Sara Reveles CNM ALLERGIES ALLERGIES DATE TYPE / NAME / CODE REACTION SEVERITY SOURCE CODE 10/26/2018 Drug meperidine Hives Unknown [place] Allergy/41 HCl/[id number](RXNOR Community [id number]([facility]) Repository 10/26/2018 Drug oxycodone Hives Unknown [place] Allergy/41 HCl/[id number](RXNOR Community [id number]) Repository 10/26/2018 Drug nitrofurantoin Hives Unknown [place] Allergy/41 macrocrystalline/F00 Community [id number]( [id number](RXNO) [facility]) Repository 10/26/2018 Drug Sulfa (Sulfonamide Hives Unknown [place] Allergy/41 Antibiotics)/[id number] Community [id number]([facility](RXNORM) [facility]) Repository 10/26/2018 Drug ethinyl Hives Unknown [place] Allergy/41 estradiol/[id number] Community [id number]( (RXNORM) [facility]) Repository 10/26/2018 Drug morphine/[id number]( Hives Unknown [place] Allergy/41 RXNORM) Community [id number]([facility]) Repository 10/26/2018 Drug oxycodone/[id number] Hives Unknown [place] Allergy/41 (RXNORM) Community [id number]([facility]) Repository 10/26/2018 Drug acetaminophen/B91781 Shortness of Unknown [place] Allergy/41 1605(RXNORM) breath Community [id number]([facility]) Repository 10/26/2018 Drug nitrofurantoin/F0060 Hives Unknown [place] Allergy/41 59047(RXNORM) Community [id number]([facility]) Repository 10/26/2018 Drug norgestimate/H421044 Hives Unknown [place] Allergy/41 529(RXNORM) Community [id number]([facility]) Repository 10/26/2018 Drug milk/[id number](RXNO Nausea/Vom/Diar Unknown [place] Allergy/41 RM) toan Community [id number]( [facility]) Repository 05/18/2015 DRUG SUMATRIPTAN OTHER: SEE C [facility] INGREDI/[address] [place] [id number](SN Repository OMED CT) 05/18/2015 DRUG SUMATRIPTAN OTHER: SEE C [facility] [place] [id number](SN Repository OMED CT) 07/25/2012 DRUG LATEX RASH Med [facility] INGREDI[address] [place] [id number](SN Repository OMED CT) 07/25/2012 DRUG LATEX RASH [facility] INGREDI41 [address] [place] [id number](SN Repository OMED CT) 06/12/2012 DRUG/08366 NITROFURANTOIN HIVES [facility] 1003(SNOME MONOHYD/M-CRYST [address] [place] [address]) Repository 06/12/2012 [facility] [place] [address] [address] [place] 1183450(SN Repository OMED CT) 06/12/2012 DRUG/98489 [facility]THO [facility]CYCLEN [facility] 1003(SNOME (21) [address] [place] [address]) Repository 06/12/2012 DRUG OXYCODONE HIVES [facility] INGREDI41 [address] [place] [id number](SN Repository OMED CT) 06/12/2012 Drug SULFA (SULFONAMIDE HIVES [facility] Class/4195 ANTIBIOTICS) [address] [place] [address](SNOM Repository ED CT) 06/12/2012 Food/91339 MILK GI UPSET Low [facility] 1000(SNOME [address] [place] [address]) Repository 06/12/2012 DRUG AMOXICILLIN HIVES [facility] INGREDI/41 [address] [place] [id number](SN Repository OMED CT) 06/12/2012 DRUG/96776 MEPERIDINE (PF) HIVES [facility] 1003(SNOME [address] [place] [address]) Repository 06/12/2012 [facility] INGREDI41 [address] [place] [id number](SN Repository OMED CT) 06/12/2012 DRUG/74811 MEPERIDINE (PF) [facility] 1003(SNOME [address] [place] [address]) Repository 06/12/2012 DRUG/91092 NITROFURANTOIN [facility] 1003(SNOME MONOHYD/M-CRYST [address] [place] [address]) Repository 06/12/2012 Food/20676 MILK GI UPSET [facility] 1000(SNOME [address] [place] [address]) Repository 06/12/2012 DRUG MORPHINE HIVES [facility]/41 [address] [place] [id number](SN Repository OMED CT) 06/12/2012 DRUG/12378 ORTHO TRI-CYCLEN HIVES [facility] 1003(SNOME (21) [address] [place] [address]) Repository 06/12/2012 DRUG OXYCODONE HIVES [facility]/ [address] [place] [id number](SN Repository OMED CT) 06/12/2012 Drug SULFA (SULFONAMIDE HIVES [facility] Class/4195 ANTIBIOTICS) [address] [place] [address](SNOM Repository ED CT) 06/12/2012 [facility]UG [facility]HEN [facility]/ [address] [place] [id number](SN Repository OMED CT) ENCOUNTERS ENCOUNTERS ADMIT/DISCHARGE ACCOUNT ADMITTING ENCOUNTER LOCATION SOURCE NUMBER CLASS 11/09/2018/11/13/20 [id number] Ambulatory [address] Repository 10/31/2018/11/01/20 [id number] Ambulatory [address] Repository 10/26/2018/10/28/20 [id number] Alejandro, Inpatient [address] ing:WPRoom: Repository [id number]: 1 10/26/2018 [id number] [facility] ing:ED Repository 10/25/2018 [id number] [facility] ing:LABSPEC Repository 10/24/2018/10/26/20 [id number] Ambulatory [address] Repository 10/24/2018/10/24/[id number] ing:WPOUTRoom Repository : [id number] 10/15/2018/10/16/20 [id number] Ambulatory [address] Repository 10/15/2018/10/16/20 [id number] Ambulatory [address] Repository 10/10/2018/10/12/20 [id number] Ambulatory [address] Repository 10/04/2018/10/05/20 [id number] Ambulatory [address] [place] Repository 09/28/2018/10/02/20 [id number] [facility] [place] Repository 09/21/2018/09/27/20 [id number] [facility] [place] Repository 09/13/2018/09/14/20 [id number] [facility] [place] Repository 09/13/2018/09/13/20 [id number] [facility] [place] Repository 09/12/2018/09/12/20 [id number] [facility] [place] Repository 09/12/2018/09/13/20 [id number] [facility] [place] Repository 08/30/2018/08/30/20 [id number] [facility] [place] Repository 08/30/2018/08/31/20 [id number] [facility] [place] Repository 08/28/2018/08/29/20 [id number] [facility] [place] Repository 08/03/2018/08/06/20 [id number] [facility] [place] Repository 07/05/2018/07/05/20 [id number] [facility] [place] Repository 07/05/2018/07/06/20 [id number] [facility] [place] Repository 06/06/2018/06/08/20 [id number] [facility] [place] Repository 05/10/2018/05/14/20 [id number] [facility] [place] Repository 04/24/2018/04/26/20 [id number] [facility] [place] Repository 04/19/2018/04/19/20 [id number] [facility] [place] Repository 04/19/2018/04/19/20 [id number] [facility] [place] Repository 04/12/2018/04/16/20 [id number] [facility] [place] Repository 04/05/2018/04/09/20 [id number] [facility] [place] Repository 02/26/2018/02/29/20 [id number] [facility] [place] Repository 01/29/2018/01/31/20 [id number] [facility] [place] Repository 01/08/2018/01/08/20 [id number] [facility] [place] Repository 01/05/2018/02/09 [id number] Ambulatory [address] Repository 01/05/2018/01/05/[id number] Repository PAYERS PAYERS ENCOUNTER GUARANTOR PAYER SUBSCRIBER SOURCE 10/26/2018 KARISSA Swann Primary TAMIR R Iuka [id number] ARMINDA Insurance:MEDICAL STARNERDOB: [facility] [id number], Number: [place]ository [place] [id number]: [id number] Date:1827-86-82R[address] () [address], [place] [address]PK: 10/26/2018 Secondary NOT GIVENUNK Iuka Insurance:SELF PAY [facility] Number: Effective Repository Date:2018-10-26 10/26/2018 KARISSA Swann Primary TAMIR R Wiley [id number] ARMINDA Insurance:MEDICAL STARNERDOB: [facility] [id number], Number: [place]ository [place] [id number]: [id number] Date:2881-21-62[address] () [address], [place] [address]BG: 10/26/2018 Secondary NOT GIVENUNK [place] Insurance:SELF PAY [facility] Number: Effective Repository Date:2018-10-26 10/25/2018 KARISSA Swann Primary TAMIR R Iuka [id number] ARMINDA Insurance:MEDICAL STARNERDOB: [facility] [id number], Number: Repository [place] [id number]: [id number] Date:9999-89-94[address] () [address], [place] [address]SC: 10/25/2018 Secondary NOT GIVENUNK Wiley Insurance:SELF PAY [facility] Number: Effective Repository Date:2018-10-25 10/24/2018 KARISSA Swann Primary TAMIR R Wiley [id number] ARMINDA Insurance:MEDICAL STARNERDOB: [facility] [id number], Number: [place] [id number]: [id number] Date:3644-17-96[address] ([place]) [address], [place] [address]TJ: 10/24/2018 Secondary NOT GIVENUNK Wiley Insurance:SELF PAY [facility] Number: Effective Repository Date:2018-10-24
== END 2018-10-24 13:27 | disposition home or self-care (01) ==
LOC: WPOUT 10:45 → WP 10:46
PROVIDERS: Family Provider Pediatrics; PCP Pediatrics; Referring Provider Advanced Practice Midwife; Visit Provider Advanced Practice Midwife
DX: O26.893 Other specified pregnancy related conditions, third trimester (principal); R51 Headache; O99.513 Diseases of the respiratory system complicating pregnancy, third trimester; J45.909 Unspecified asthma, uncomplicated; O99.353 Diseases of the nervous system complicating pregnancy, third trimester; G43.909 Migraine, unspecified, not intractable, without status migrainosus; O16.3 Unspecified maternal hypertension, third trimester; Z3A.33 33 weeks gestation of pregnancy
CPT/HCPCS: 96361 ×2; 96374; 96375; 59025; 59050; 82565; 82570; 84156; 84450; 84460; 84550; 85027; 85610; 85730; 99218; J7120; G0378

== ENCOUNTER → 2018-10-25 11:53 | Outpatient (CLI) | payer OTHER, SELFPAY ==
[2018-10-24 10:53] VITALS: BMI 40.6
[2018-10-25 13:11] LABS: 24HR. UA Prot. Total Volume 4100 mL; 24HR. Urine Creatinine 1.46 g/24 HR (0.70-1.90); Urine Protein (24 Hour) < 6.0 mg/dL (<11.9)
--- OUTSIDE RECORDS SUMMARY | 2018-12-20 15:16 | XMS RPT_ITS ---
[...] REVELES, SARA (CNM) Attending Unavailable PODLOGSUE CARUSO (VP DIGITAL MARKETING) Attending Unavailable REVELES, SARA (CNM) Attending Unavailable [...] SOURCE 10/30/2018 Unknown O64.1XX0 - Alejandro, Active [place] Obstructed labor Dominick [facility] due to breech Hospital presentation, not Repository applicable or unspecified / O64.1XX0(ICD-10) 10/30/2018 Unknown R51 - Headache / Reveles, Sara Active [place] R51(ICD-10) [facility] Repository 09/13/2018 Active 28 weeks NA Active [facility] gestation of [place] / Repository Z3A.28(ICD-10) 09/13/2018 Active Dizziness and NA Active [facility] giddiness / [place] R42(ICD-10) Repository 09/12/2018 Active 27 weeks NA Active [facility] gestation of [place] / Repository Z3A.27(ICD-10) 09/12/2018 Active Other specified NA Active [facility] related [place] conditions, third Repository trimester / O26.893(ICD-10) 09/12/2018 Active Headache / NA Active [facility] R51(ICD-10) [place] Repository 08/30/2018 Active 26 weeks NA Active [facility] gestation of [place] / Repository Z3A.26(ICD-10) 05/10/2018 Active 10 weeks SARA REVELES Active [facility] gestation of (CNM) [place] / Repository Z3A.10(ICD-10) 04/19/2018 Active Supervision of NA Active [facility] high risk [place] , Repository unspecified, first trimester / O09.91(ICD-10) 01/05/2018 Active Threatened NA Active [facility] / [place] O20.0(ICD-10) Repository 01/05/2018 Active Unknown / SARA REVELES Active [facility] UNK(Unknown) ([facility]) [place] Repository PROCEDURES PROCEDURES No Procedure Records FoundRESULTS RESULTS PROGRESS Observed: 11/09/2018 Status: COMPLETED Source: [place] 9:40 AM [facility]IC [facility] REPOSITORY HNO ID: [id number] Author: Michael ValdesJil Smyth Service: (none) Author Type: Consulting Utility Forester Type: Progress Notes Filed: 11/09/2018 3:18 PM [...] Dominick Caldwell M.D.. Delivered in what hospital? [facility] Lochia: Alba, Normal depression/mood: None Breast/bottle: [...] pain to palpation PLAN: Consultation with Dr. Aleajndro DAVISON re: this patient - will increase [...] APRN.CNM CNOV Observed: 11/09/2018 Status: COMPLETED Source: [place] 9:30 AM [facility] Office Visit (WOOB) KARISSA DE LEON ([id number]) 1990 F Date Time Provider Department 11/09/18 [...] Dominick Caldwell M.D.. Delivered in what hospital? [facility] Lochia: Alba, Normal depression/mood: None Breast/bottle: [...] 11/09/18 PROGRESS Observed: 10/31/2018 Status: COMPLETED Source: [place] 10:41 AM [facility] O ID: [id number] Author: Sara Reveles Service: (none) Author Type: Consulting Utility Forester Type: Progress Notes Filed: 10/31/2018 12:21 PM Note Text: SUBJECTIVE: 28 year old female presents for 5 day visit for BP check. Baby is in the NICU at [facility]. Outcome: PCS. Date delivered: 10/26/2018. Delivering M.D.: Dominick Caldwell M.D.. Delivered in what hospital? [facility] Lochia: Alba, Normal depression/mood: None Breast/bottle: [...] APRN.CNM CNOV Observed: 10/31/2018 Status: COMPLETED Source: [place] 10:30 AM [facility] Office Visit (WOOB) KARISSA DE LEON ([id number]) 1990 F Date Time Provider Department 10/31/18 10:30 AM SARA REVELES (ANAHI) WOOB During your visit today, we recorded the following information about you: Blood pressure Weight 142/92 99.8 kg Sara Reveles APRN.CNM 10/31/2018 12:21 PM Signed SUBJECTIVE: 28 year old female presents for 5 day visit for BP check. Baby is in the NICU at [facility]. Outcome: PCS. Date delivered: 10/26/2018. Delivering M.D.: Dominick Caldwell M.D.. Delivered in what hospital? [facility] Lochia: Alba, Normal depression/mood: None Breast/bottle: [...] Sara Reveles APRN.ANAHI Referring Provider: SARA REVELES ([facility]) [[id number]] Allergies As of Date: 10/31/2018 Noted Allergy [...] 10/31/18 PROGRESS Observed: 10/30/2018 Status: COMPLETED Source: [place] 2:48 PM [facility] [place] REPOSITORY HNO ID: [id number] Author: Yamilka Parra LPN Service: (none) Author Type: (none) Type: Progress Notes Filed: 10/30/2018 2:54 PM Note Text: Pt delivered via C/S at [facility] on 10/26/[address] Caldwell and CHIKI. See OB Outcome note. Pt has post op appt 10/31/18. Yamilka Parra LPN HOSP Observed: 10/30/2018 Status: COMPLETED Source: [place] 12:00 AM [facility] Patient Update (WOOB) KARISSA DE LEON ([id number]) 1990 F Date Time Provider Department 10/30/18 DOMINICK CALDWELL During your visit today, we recorded the following information about you: Yamilka Parra LPN 10/30/2018 2:54 PM Signed Pt delivered via C/S at [facility] on 10/26/[address] Newell. See OB [...] 10/28/2018 Status: F Source: [place] 11:22 AM REPOSITORY [facility] Medical Records Department [address] [place] [address] Discharge Summary 10/28/18 1121 MR#: [id number] Acct: [id number] Name: KARISSA DE LEON Rep #: [id number] : 1990 28 From: Sara Reveles CNM PCP: Kiet Fagan DO Status: ADM IN Location: VA522-0 Discharge Date and Diagnosis - Problem List [...] 10/28/2018 Status: F Source: [place] 11:21 AM REPOSITORY [facility] Medical Records Department [address] [place] [address] Instructions for Home/Discharge Instructions 10/28/18 1118 MR#: [id number] Acct: [id number] Name: KARISSA DE LEON Rep #: [id number] : 1990 28 From: Sara Reveles CNM [...] by Sara Reveles CNM> Date Sara Reveles [facility] CC: Kiet Fagan DO CBC-COMPLETE BLOOD CNT Collected: 10/27/2018 Status: F Source: [place] NO DIFF 5:15 AM REPOSITORY Order Comment: Comments: Day #1 Reason [...] MPV 11.4 Performed By: #### L100.0500 #### [facility] [address] [facility] [place], [address] OPERATIVE REPORT Observed: 10/26/2018 Status: F Source: WILEY 7:42 PM REPOSITORY [facility] Medical Records Department [address] [place] [address] Operative Report 10/26/18 1937 MR#: [id number] Acct: [id number] Name: KARISSA DE LEON Rep #: [id number] : 1990 28 From: Dominick Caldwell MD PCP: Kiet Fagan DO Status: ADM IN Location: PB011-7 Delivery Classification: DAVID Final SNEHA: 12/06/18 Gestational age: 34 Weeks and 1 Days Indications for : Breech, - - Preeclampsia with severe features Description of Procedure: Preoperative diagnosis: 34-week intrauterine , breech presentation, preeclampsia with severe features Postoperative diagnoses: Same Surgeon: Dominick Caldwell MD Etcher Electrolytic:Iman MONET Anesthesia- Spinal- Iman Grossman MD complications- [...] AND PHYSICAL Observed: 10/26/2018 Status: F Source: [place] EXAM 6:26 PM REPOSITORY [facility] Medical Records Department [address] [place] [address] History and Physical 10/26/18 1816 MR#: [id number] Acct: [id number] Name: KARISSA DE LEON Rep #: [id number] : 1990 28 From: Dominick Caldwell MD PCP: Kiet Fagan DO Status: ADM IN Y Location: AT625-6 History Date of Admission: 10/26/18 Final SNEHA: [...] GeLabor LenAnesthesiDelivery Provider FOB Date ght [facility] a Location Review of Systems Constitutional: Denies: [...] BLOOD CNT Collected: 10/26/2018 Status: F Source: [place] NO DIFF 4:49 PM REPOSITORY TYPE CODE TESTS RESULT OUT OF [...] MPV 11.7 Performed By: #### L100.0500 #### [facility] [address] [place], [place], [address] GROUP B STREP DNA Collected: 10/26/2018 Status: F Source: [place] BY PCR 3:55 PM REPOSITORY TYPE CODE TESTS RESULT OUT OF RANGE REFERENCE UNITS LAB L8200.0100 Negative Normal GBS TEST Negative RESULT Performed By: #### L8200.0000 #### [facility] [address] [place], [address] TYPE AND SCREEN Collected: 10/26/2018 Status: F Source: [place] 2:10 PM REPOSITORY Order Comment: Reason for Type AND Screen/Red Cells: ROUTINE TYPE CODE TESTS RESULT OUT OF RANGE REFERENCE UNITS LAB B10.0800 A Normal BLOOD TYPE GEL POSITIVE LAB B100.4000 Normal Antibody NEGATIVE Screen Performed By: #### B101.7450 #### [facility] [address] [facility] [place], [place], [address] BRAIN/HEAD WITHOUT Observed: 10/26/2018 Status: F Source: [place] CONTRAST 1:47 PM REPOSITORY [facility] Imaging Services [address] [place] [address] Brain/Head without Contrast MR#: [id number] Acct: [id number] Name: KARISSA DE LEON Rep #: [id number] : 1990 F 28 From: Jerilyn Pérez MD PCP: Kiet Fagan DO Status: ADM IN Study: Brain/Head without Contrast Date of Exam: 10/26/18 Exam# [id number] Ordering Dr: Dominick Caldwell MD STUDY: CT [...] Pérez MD at 17:14 EST Tel Direct: [phone], Service support , CC: Kiet Fagan DO; Dominick Caldwell MD Typewriter Aligner: Signed CBC-COMPLETE BLOOD CNT Collected: 10/26/2018 Status: F Source: [place] NO DIFF 12:25 PM REPOSITORY TYPE CODE TESTS RESULT OUT OF [...] #### L100.0500, L501.1105, L501.1400, L501.4100, L501.4405 #### [facility] [address] [place], [address] SERUM CREATININE AND Collected: 10/26/2018 Status: F Source: [place] GFR 12:25 PM REPOSITORY TYPE CODE TESTS RESULT OUT OF [...] #### L100.0500, L501.1105, L501.1400, L501.4100, L501.4405 #### [facility] [address] [place], [place], [address] URIC ACID Collected: 10/26/2018 Status: F Source: [place] 12:25 PM REPOSITORY TYPE CODE TESTS RESULT OUT OF RANGE REFERENCE UNITS LAB L501.1400 2.6-6.0 mg/dL Normal URIC 3.8 Result Comment: The drugs N-Acetylcysteine and Metamizole may falsely depress this assay. Performed By: #### L100.0500, L501.1105, L501.1400, L501.4100, L501.4405 #### [facility] [address] [place], [place], [address] AST(SGOT) Collected: 10/26/2018 Status: F Source: [place] 12:25 PM REPOSITORY TYPE CODE TESTS RESULT OUT OF RANGE REFERENCE UNITS LAB L501.4100 15-37 U/L Normal AST 18 Performed By: #### L100.0500, L501.1105, L501.1400, L501.4100, L501.4405 #### [facility] [address] [place], [address] ALANINE AMINOTRANSFERAS Collected: 10/26/2018 Status: F Source: [place] (SGPT) 12:25 PM REPOSITORY TYPE CODE TESTS RESULT OUT OF RANGE REFERENCE UNITS LAB L501.4405 13-56 U/L Normal ALT 19 Performed By: #### L100.0500, L501.1105, L501.1400, L501.4100, L501.4405 #### [facility] [address] [place], [address] PROTHROMBIN TIME W/INR Collected: 10/26/2018 Status: F Source: [place] 12:25 PM REPOSITORY TYPE CODE TESTS RESULT OUT OF RANGE REFERENCE UNITS LAB L300.4150 11.7-14.9 SECONDS Normal PROTIME 12.8 LAB L300.4200 Normal INR 1.0 Performed By: #### L300.3900, L300.4310 #### [facility] [address] [place], [address] PARTIAL THROMBOPLAST Collected: 10/26/2018 Status: F Source: [place] TIME 12:25 PM REPOSITORY TYPE CODE TESTS RESULT OUT OF RANGE REFERENCE UNITS LAB L300.4310 24.1-36.2 Seconds Normal PTT 24.8 Performed By: #### L300.3900, L300.4310 #### [facility] [address] [place], [address] PROTEIN+CREATININE Collected: Status: F Source: [place] RATIO,URINE 10/26/2018 12:17 PM REPOSITORY TYPE CODE TESTS RESULT OUT OF RANGE REFERENCE UNITS LAB L501.1200 NO RANGE EST. mg/dL Normal UR CREAT 30.30 LAB L501.1930 <11.9 mg/dL Normal 7.3 PROTEIN,UR.R AN. LAB L501.1940 0-200 mg/g CRE High PROT:CRE 241 RATIO Performed By: #### L501.0900 #### [facility] [address] [place], [address] Observed: 10/26/2018 Status: F Source: [place] CULTURE, GROUP B 12:00 AM STREPTOCOCCUS REPOSITORY RUBEN Culture Group B Beta Streptococcus is not isolated. Performed By: #### M100.1800 #### [facility] [address] [place], [address] PROTEIN, URINE 24HR Collected: 10/25/2018 Status: F Source: [place] 12:02 PM REPOSITORY TYPE CODE TESTS RESULT OUT OF RANGE REFERENCE UNITS LAB L501.1850 24.0 HOURS 24.0 Normal UR COLLECT TIME LAB L501.1875 mL 4100 Normal UR TOTAL VOLUME LAB L501.1900 <11.9 mg/dL < 6.0 Normal URINE PROTEIN LAB L501.1925 <150 MG/24HR mg/24HR Test Normal 24hr UR not performed PROTEIN Performed By: #### L500.9000, L502.000 #### [facility] [address] [facility] [id number] 24 HR URINE CREATININE Collected: 10/25/2018 Status: F Source: [place] 12:02 PM REPOSITORY TYPE CODE TESTS RESULT OUT OF RANGE REFERENCE UNITS LAB L502.0100 24.0 HOURS Normal UR COLLECT 24.0 TIME LAB L502.0200 L Normal UR TOTAL 4.10 VOLUME LAB L502.0300 NO RANGE EST. mg/dL Normal URINE CREAT 35.60 LAB L502.0400 0.70-1.90 g/24 HR Normal UR.CREAT/24hr 1.46 Performed By: #### L500.9000, L502.000 #### [facility] [address] [facility] [address] PROTEIN+CREATININE Collected: Status: F Source: [place] RATIO,URINE 10/24/2018 11:15 AM REPOSITORY TYPE CODE TESTS RESULT OUT OF RANGE REFERENCE UNITS LAB L501.1200 NO RANGE EST. mg/dL Normal UR CREAT 36.70 LAB L501.1930 <11.9 mg/dL Normal 6.6 PROTEIN,UR.R AN. LAB L501.1940 0-200 mg/g CRE Normal PROT:CRE 180 RATIO Performed By: #### L501.0900 #### [facility] [address] [facility] [address] CBC-COMPLETE BLOOD CNT Collected: 10/24/2018 Status: F Source: [place] NO DIFF 10:50 AM REPOSITORY TYPE CODE TESTS RESULT OUT OF [...] MPV 11.8 Performed By: #### L100.0500 #### [facility] [address] [facility] [address] [place], [place], [id number] SERUM CREATININE AND Collected: 10/24/2018 Status: F Source: [place] GFR 10:50 AM REPOSITORY TYPE CODE TESTS RESULT OUT OF [...] L501.1105, L501.1400, L501.4100, L501.4405, L300.3900, L300.4310 #### [facility] [address] [place], [place], [address] URIC ACID Collected: 10/24/2018 Status: F Source: [place] 10:50 AM REPOSITORY TYPE CODE TESTS RESULT OUT OF RANGE REFERENCE UNITS LAB L501.1400 2.6-6.0 mg/dL Normal URIC 4.0 Result Comment: The drugs N-Acetylcysteine and Metamizole may falsely depress this assay. Performed By: #### L501.1105, L501.1400, L501.4100, L501.4405, L300.3900, L300.4310 #### [facility] [address] [place], [address] AST(SGOT) Collected: 10/24/2018 Status: F Source: [place] 10:50 AM REPOSITORY TYPE CODE TESTS RESULT OUT OF RANGE REFERENCE UNITS LAB L501.4100 15-37 U/L Normal AST 15 Performed By: #### L501.1105, L501.1400, L501.4100, L501.4405, L300.3900, L300.4310 #### [facility] [address] [facility] [address] [place], [place], [address] ALANINE AMINOTRANSFERAS Collected: 10/24/2018 Status: F Source: [place] (SGPT) 10:50 AM REPOSITORY TYPE CODE TESTS RESULT OUT OF RANGE REFERENCE UNITS LAB L501.4405 13-56 U/L Normal ALT 16 Performed By: #### L501.1105, L501.1400, L501.4100, L501.4405, L300.3900, L300.4310 #### [facility] [address] [place], [place], [address] PROTHROMBIN TIME W/INR Collected: 10/24/2018 Status: F Source: [place] 10:50 AM REPOSITORY TYPE CODE TESTS RESULT OUT OF RANGE REFERENCE UNITS LAB L300.4150 11.7-14.9 SECONDS Normal PROTIME 12.9 LAB L300.4200 Normal INR 1.0 Performed By: #### L501.1105, L501.1400, L501.4100, L501.4405, L300.3900, L300.4310 #### [facility] [address] [place], [place], [address] PARTIAL THROMBOPLAST Collected: 10/24/2018 Status: F Source: [place] TIME 10:50 AM REPOSITORY TYPE CODE TESTS RESULT OUT OF RANGE REFERENCE UNITS LAB L300.4310 24.1-36.2 Seconds Normal PTT 26.6 Performed By: #### L501.1105, L501.1400, L501.4100, L501.4405, L300.3900, L300.4310 #### [facility] [address] [place], [address] PROGRESS Observed: 10/15/2018 Status: COMPLETED Source: [place] 3:54 PM [facility] REPOSITORY HNO ID: [id number] Author: Juan Almendarez Service: (none) Author Type: [...] (PROBIOTIC BLEND ORAL) Take by mouth. vit 12-qndo-gqilf-dha ( + DHA) 28 mg iron- 975 [...] MD CNOV Observed: 10/15/2018 Status: COMPLETED Source: [place] 3:40 PM [facility] Office Visit (FAMPWS) KARISSA DE LEON ([id number]) 1990 F Date Time Provider Department 10/15/18 [...] (PROBIOTIC BLEND ORAL) Take by mouth. vit 93-beor-kjddu-dha ( + DHA) 28 mg iron- 975 [...] Juan Almendarez MD Referring Provider: JUAN ALMENDAREZ [[id number]] Allergies As of Date: 10/15/2018 Noted Allergy [...] 10/15/18 PROGRESS Observed: 09/13/2018 Status: COMPLETED Source: [place] 4:31 PM [facility] [place] REPOSITORY HNO ID: [id number] Author: Candace Vidales Service: (none) Author Type: [...] COMPLEX 1 ORAL) Take by mouth. vit 67-xqfc-odjpt-dha ( + DHA) 28 mg iron- 975 [...] METABOLIC PANL Collected: 09/13/2018 Status: F Source: [place] 3:38 PM [facility] MAIN [facility]AMPUS REPOSITORY TYPE CODE TESTS RESULT OUT OF REFERENCE UNITS RANGE LAB GLU 74-99 mg/dL Glucose 80 Result Comment: The [place] Diabetes Association (ADA) provides guidance for cutoff [...] Standards of Medical Care in Diabetes 2016, [place] Diabetes Association. Diabetes Care. 2016.39(Suppl 1). LAB [...] actual GFR. Performed By: #### BMP #### [facility] [address] [place], [place] [address] PROGRESS Observed: 09/13/2018 Status: COMPLETED Source: [place] 3:20 PM [facility] MAIN CAMPUS REPOSITORY HNO ID: [id number] Author: Monique Owens Ma Service: (none) Author Type: (none) Type: Progress Notes Filed: 09/13/2018 4:37 PM Note Text: 28 year old female here for INACTIVATED INFLUENZA VACCINE. [id number] Season Patient is identified by name and date of : Yes [] CONTRAINDICATIONS color enhanced section Age less than 6 months? No Allergy to eggs, chicken, chicken feathers, or chicken dander? No Allergy to thimerosal (a preservative) or formaldehyde, gelatin? No History of severe reaction to any vaccine component or a previous dose of influenza vaccination? No History of Guillain-Arbyrd Syndrome within 6 weeks after a previous [...] sheet given? Yes See immunization activity in [facility] for details of immunizations adminstered today. Patient age: [age] year old For The 9370-0112 Flu Season 6-35 months old: Fluzone 0.25 [...] time. PROTEIN/CREATININE RATIO Collected: Status: F Source: [place] 09/12/2018 10:45 AM [facility] REPOS[facility] TYPE CODE TESTS RESULT OUT OF REFERENCE UNITS RANGE LAB UTPR 0-20 mg/dL Protein Urine 6 Random LAB UCRR 20-300 mg/dL Creatinine,Ur 67.0 ine,Ran LAB PCRAT <0.2 Protein/Creat 0.1 inine Ratio Performed By: #### SUSAN #### [facility] [address] [place], [place] [address] CBC Collected: 09/12/2018 Status: F Source: [place] 10:43 AM [facility] REPOSIT[facility] TYPE CODE TESTS RESULT OUT [...] k/uL Absolute nRBC <0.01 Performed By: #### URIC, CMP, CBC #### [facility] [address] [place] [place], [place] [address] COMP METABOLIC PANEL Collected: 09/12/2018 Status: F Source: [place] 10:43 AM [facility]INIC [facility]AMP[facility] REPOSITORY TYPE [...] mg/dL Low Glucose 61 Result Comment: The [place] Diabetes Association (ADA) provides guidance for cutoff [...] Standards of Medical Care in Diabetes 2016, [place] Diabetes Association. Diabetes Care. 2016.39(Suppl 1). LAB [...] has been calibrated to be traceable to IDKS. An eGFR <60 mL/min/1.73m2 for >3 months is consistent with chronic kidney disease. Refer to KDOQI guidelines for clinical interpretation. In patients with unstable renal function, e.g. those with acute kidney injury, the eGFR may not accurately reflect actual GFR. Performed By: #### URIC, CMP, CBC #### [facility] Owned it [address] [place], [place] [address] URIC ACID Collected: 09/12/2018 Status: F Source: [place] 10:43 AM [facility] REPOSIT[facility] TYPE CODE TESTS RESULT OUT OF RANGE REFERENCE UNITS LAB URIC 2.5-6.6 mg/dL Uric Acid 4.0 Performed By: #### URIC, CMP, CBC #### [facility] Owned it [address] [place], [place] [id number] CBC AND DIFFERENTIAL Collected: 08/30/2018 Status: F Source: [place] 11:00 AM [facility] REPOSITORY TYPE CODE TESTS RESULT OUT [...] k/uL Abs Lymph 1.72 LAB AMONO % [place]% 5.4 LAB AAMONO <0.87 k/uL Abs [place] 0.62 LAB AEOS % Eosin% 2.6 LAB AAEOS <0.46 k/uL Abs Eosin 0.30 LAB ABASO % Baso% 0.3 LAB AABASO <0.11 k/uL Abs Baso 0.03 LAB AUNRBC 0 /100 WBC NRBCs 0.0 LAB ABNRBC <0.01 k/uL Absolute nRBC <0.01 LAB DTYP DTYPE Auto Diff Performed By: #### CBCDIF #### [facility] Owned [facility] [address] [place], [place] [address] 50G, 1HR GEST. Collected: 08/30/2018 Status: F Source: [place] GSCRN 11:00 AM [facility] REPOS[facility] TYPE CODE TESTS RESULT OUT OF REFERENCE UNITS RANGE LAB GLUP 74-134 mg/dL Glucose 127 Screen, Preg Result Comment: [place] Congress of Obstetricians and Gynecologists (Green/Coustan) guidelines state a gestational diabetes mellitus positive screen is made, in women not previously diagnosed with overt diabetes, when the 1 hr plasma glucose level is equal to or above 140 mg/dL. The [facility] Industrial X Ray Operator and [facility] [place] recommends a 135 mg/dL cutoff. Performed By: #### GLTGST #### [facility] [address] [place], [place] [address] PROGRESS Observed: 08/28/2018 Status: COMPLETED Source: [place] 2:53 PM [facility] HNO ID: [id number] Author: Sue (Burlap Roll Coverer) Podlogar Service: (none) Author Type: Nurse Practitioner [...] sooner if worsening of symptoms Sue Camargo APRN.VP DIGITAL MARKETING Prescription instructions reviewed with patient as applicable. Patient advised if symptoms do not improve or if symptoms worsen sooner, to contact their primary care physician. Potential red flag symptoms discussed with the patient. Reviewed appropriate action plan to take if red flag symptoms occur. Patient agreeable to treatment plan. CNSILVIANO Observed: 08/28/2018 Status: COMPLETED Source: [place] 2:40 PM [facility]IC [facility] REPOSITORY [facility] KARISSA DE LEON ([id number]) 1990 F Date Time Provider Department 08/28/18 2:40 PM SUE CAMARGO (VP DIGITAL MARKETING) [facility] your visit today, we recorded [...] or sooner if worsening of symptoms Sue Sellreslogar, MANAGER PRODUCE.VP DIGITAL MARKETING Prescription instructions reviewed with patient as applicable. Patient advised if symptoms do not improve or if symptoms worsen sooner, to contact their primary care physician. Potential red flag symptoms discussed with the patient. Reviewed appropriate action plan to take if red flag symptoms occur. Patient agreeable to treatment plan. Sue Camargo, MANAGER PRODUCE.VP DIGITAL MARKETING 08/28/2018 3:01 PM Signed Use nasal saline, [...] Date Reviewed: 08/28/2018 Reviewed by: Anel Grubbs (Onsite Case Manager) ROBER Reyes - Fully Assessed Reason for [...] Letter Text Department of Family Medicine [address] [address] 08/28/2018 Karissa De Leon CCF# [id number] [address] [place] [address] TO WHOM IT MAY CONCERN: This is to confirm that Karissa De Leon had an appointment and was seen at the [facility] in the Department of Internal Medicine by Sue Camargo APRN.CNP on 08/28/2018. Sincerely yours, Electronically Signed Sue Camargo APRN.CNP Encounter Status:Closed by SUE CAMARGO CNP on 08/28/18 PROGRESS Observed: 07/05/2018 Status: COMPLETED Source: [place] 10:42 AM [facility] RE[facility] HNO ID: [id number] Author: Daisha Kelley Service: (none) Author Type: [...] indicated PROGRESS Observed: 04/26/2018 Status: COMPLETED Source: [place] 3:31 PM [facility] RE[facility] HNO ID: [id number] Author: Yamilka Wu Service: (none) Author Type: (none) Type: Progress Notes Filed: 04/26/2018 3:31 PM Note Text: pap logged, letter sent. Yamilka L Gedney Psr PROGRESS Observed: 04/24/2018 Status: COMPLETED Source: [place] 11:00 AM [facility] HNO ID: [id number] Author: Daisha Kelley Service: (none) Author Type: [...] 1HR GEST. Collected: 04/19/2018 Status: F Source: [facility] GSCRN 10:15 AM [facility] TYPE CODE TESTS RESULT OUT OF REFERENCE UNITS RANGE LAB GLUP 74-134 mg/dL Glucose 83 Screen, Preg Result Comment: [place] Congress of Obstetricians and Gynecologists (Green/Coustan) guidelines state a gestational diabetes mellitus positive screen is made, in women not previously diagnosed with overt diabetes, when the 1 hr plasma glucose level is equal to or above 140 mg/dL. The [facility] Industrial X Ray Operator and [facility] [place] recommends a 135 mg/dL cutoff. Performed By: #### GLTGST #### [facility] [address] [place] [address] CBC Collected: 04/19/2018 Status: F Source: [facility] 10:15 AM [facility] TYPE CODE TESTS RESULT OUT [...] Absolute nRBC <0.01 Performed By: #### CBC, HIV12C, HBSAG, SYPHGX, RUBIGG #### [place] [address] [place] [address] RUBELLA IGG ANTIBODY Collected: 04/19/2018 Status: F Source: [facility] 10:15 AM [facility] TYPE CODE TESTS RESULT OUT [...] of antibody present. Performed By: #### CBC, HIV12C, HBSAG, SYPHGX, RUBIGG #### [place] [address] SYPHILIS IGG WITH Collected: 04/19/2018 Status: F Source: [facility] 10:15 AM [facility] TYPE CODE TESTS RESULT OUT [...] Reactive SPECIMENS >=6.0 Performed By: #### CBC, HIV12C, HBSAG, SYPHGX, RUBIGG #### [place] [address] HEPATITIS B SURF. AG Collected: 04/19/2018 Status: F Source: [facility] 10:15 AM [facility] TYPE CODE TESTS RESULT OUT OF REFERENCE UNITS RANGE LAB HBSAG Negative Hepatitis B Negative Surf. Ag Performed By: #### CBC, HIV12C, HBSAG, SYPHGX, RUBIGG #### [place] [address] [place] [address] HIV 12 COMBO (AG/AB) Collected: 04/19/2018 Status: F Source: [facility] 10:15 AM [facility] TYPE CODE TESTS RESULT OUT OF REFERENCE UNITS RANGE LAB HVAGAB Non Reactive HIV Non Reactive 12 Ag/Ab Result Comment: (NOTE) HIV Information: [place] Rev. Code 3701.243(E): This information has been [...] results or diagnoses. Performed By: #### CBC, HIV12C, HBSAG, SYPHGX, RUBIGG #### [place] [address] TYPE AND SCR,PRENATL Collected: 04/19/2018 Status: F Source: [facility] 10:15 AM [facility] TYPE CODE TESTS RESULT OUT OF REFERENCE UNITS RANGE LAB %ABR A ABO/RH(D) POSITIVE LAB % Antibody NEG Screen Performed By: #### TSPN #### [place] [address] TOXICOLOGY SCREEN,UR Collected: 04/19/2018 Status: F Source: [facility] 10:15 AM [facility] TYPE CODE TESTS RESULT OUT [...] the same speci men through Client Services ([phone]) if contacted within 48 hours of initial testing. [1]Substance Abuse and Mental Health Services Administration (2012). Clinical Drug Testing in Primary Care Technical Assistance Publication Series 32. Department of Health and Human Services, [place], p.10. These tests were developed and their performance characteristics determined by [facility]'s [facility] [place] ( [facility]). They have not been cleared or a pproved by the FDA. [facility] is regulated under CLIA as qualified to perform high complexity testing. These tests are used for clinical purposes. They should not be regarded as investigational or for research. Performed By: #### UTOX2 #### [facility] [address] [place], [place] [address] CYTOLOGY Observed: 04/19/2018 Status: F Source: [facility] 9:57 AM [facility] REPOSITORY Specimen originated from [facility] Specimen #: [id number] Submitting Physician: SARA REVELES CNM SPECIMEN SUBMITTED A: CERVICAL, SCREENING, FLUID FINAL DIAGNOSIS A. CERVICAL, SCREENING, FLUID Satisfactory for interpretation. No endocervical component. Negative for intraepithelial lesion or malignancy. This specimen has been analyzed by the Modality Imaging System, an automated imaging and review system, which assists the laboratory in evaluating cells on ThinPrep Pap tests. Following automated imaging, selected miramontes from every slide are reviewed by a primary care nurse practitioner. 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 The Pap Smear is a screening test for cervical cancer. False negative results occur with all screening tests, emphasizing the need for rescreening at recommended intervals, and clinical correlation. GC/CHLAMYDIA AMPLIF Collected: 04/19/2018 Status: F Source: [facility] 9:30 AM [facility] TYPE CODE TESTS RESULT OUT OF REFERENCE UNITS RANGE LAB GCCTSR GC/Chlam Amp Cervix Source LAB GCAMPL GC Negative Amplification for Neisseria gonorrhoeae by amplification. LAB CLAMPL Chlamydia Negative Amplif for Chlamydia trachomatis by amplification. Performed By: #### GCCT #### [facility] [address] [place] [address] PROGRESS Observed: 04/19/2018 Status: COMPLETED Source: [facility] 9:10 AM [facility] HNO ID: [id number] Author: Sara Reveles Service: (none) Author Type: Consulting Utility Forester Type: Progress Notes Filed: 04/19/2018 12:25 PM Note Text: Oncology Physician offered: Patient declines. 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 No Marital Status: Partner: Name: Tamir De Leon Age: 27 Occupation: [employer] Gender: male History of STDs: None PAST [...] COMPLEX 1 ORAL) Take by mouth. vit 22-fgev-oiqdy-dha ( + DHA) 28 mg iron- 975 [...] Reveles APRN.CNM Observed: 04/12/2018 Status: F Source: [facility] URINE CULTURE 3:44 AM [facility] Sp. Request/Comment: - Specimen received in preservative Culture Result - No growth (<1,000 CFU/ml) Performed By: #### URCUL #### [facility] [address] [place], [place] [address] PROGRESS Observed: 04/05/2018 Status: COMPLETED Source: [facility] 9:05 AM [facility] HNO ID: [id number] Author: Neto Villarreal RN Service: (none) Author [...] None CNNURSE Observed: 04/05/2018 Status: COMPLETED Source: [facility] 8:00 AM [facility] Nurse Visit (WOOB) KARISSA DE LEON ([id number]) 1990 F Date Time Provider Department 04/05/18 8:00 AM NURSE PNOB [facility] WOOB During your visit today, we recorded the following information about you: Last Period 02/22/18 Neto Villarreal RN 04/05/2018 8:42 AM Signed SEQUENTIAL SCREENINGS The [facility] offers sequential screenings for women who [...] It will require an appointment with our automotive specialty technician. This is not an ultrasound performed [...] the above symptoms, contact our office at [phone] and ask to speak with a nurse. After hours, you can call [facility] at [phone] OR call [facility] at [phone] and ask to have the doctor route salesperson paged. If you consider this an emergency, [...] treatment is particularly effective in young patients-the [facility] reports a 70 percent [...] issues. What do the experts say? The [place] [employer] encourages philanthropic blood banking [...] baby needs at the moment. The nurse, manager project management, or physician will then label the samples, [...] AHEAD OF TIME! Public cord-blood jj--DONATION: [employer] [phone] [facility]'s Placental Blood Program, [facility] Umbilical Cord Blood Bank, Private cord-blood jj--SAVING FOR YOUR OWN USE: [employer], (I think this is the least expensive) [employer] [phone] [employer], (409) [employer] [place] Cord Blood Bank, [phone] Cells, [phone] [place] Cry[facility], Cord Blood Registry, [phone]) CORDBLOOD [employer], An Internet search may provide [...] requested diagnostic testing [Z01.89] Order(s):NICOLASA PT ED SOCIAL MEDIA ANALYST [] Order #: [id number]: 1 FUTURE NICOLASA PT ED SOCIAL MEDIA ANALYST [] Order #: [id number]: 1 FUTURE NICOLASA PT ED ANESTHESIA [[id number]] Order #: [id number]: 1 FUTURE NICOLASA PT ED SOCIAL MEDIA ANALYST [] Order #: [id number]: 1 FUTURE NICOLASA WHAT TO EXPECT DURING YOUR HOSPITAL STAY [] Order #: [id number]: 1 FUTURE NICOLASA PT ED SOCIAL MEDIA ANALYST [] Order #: [id number]: 1 FUTURE NICOLASA PT ED SOCIAL MEDIA ANALYST [] Order #: [id number]: 1 FUTURE NICOLASA PT ED SOCIAL MEDIA ANALYST [] Order #: [id number]. #:[id number]: 1 NICOLASA PT ED SOCIAL MEDIA ANALYST [] Order #: [id number]. #:[id number]: 1 NICOLASA PT ED ANESTHESIA [[id number]] Order #: [id number]. #:[id number]: 1 NICOLASA PT ED SOCIAL MEDIA ANALYST [] Order #: [id number]. #:[id number]: 1 NICOLASA WHAT TO EXPECT DURING YOUR HOSPITAL STAY [] Order #: [id number]. #:[id number]: 1 NICOLASA PT ED SOCIAL MEDIA ANALYST [] Order #: [id number]. #:[id number]: 1 NICOLASA PT ED SOCIAL MEDIA ANALYST [] Order #: [id number]. #:[id number]: 1 Prescriptions as of 04/05/2018 Sig: PROBIOTIC [...] 04/05/2018 8:11 AM >> NETO VILLARREAL RN [facility] April 05, 2018 8:11 AM Has not used in 5-6 years COMPOUNDED PRESCRIPTION >> Neto Villarreal RN 04/05/2018 8:12 AM >> NETO VILLARREAL RN [facility] April 05, 2018 8:12 AM Pt [...] instructions from your clinician: SEQUENTIAL SCREENINGS The [facility] offers sequential screenings for women who [...] It will require an appointment with our automotive specialty technician. This is not an ultrasound performed [...] the above symptoms, contact our office at [phone] and ask to speak with a nurse. After hours, you can call doctors registry at [phone] OR call [facility] at [phone] and ask to have the doctor route salesperson paged. If you consider this an emergency, [...] is particularly effective in young patients- the [facility] reports a 70 percent [...] issues. What do the experts say? The [place] [employer] Pediatric[employer] encourages philanthropic blood banking [...] baby needs at the moment. The nurse, manager project management, or physician will then label the samples, [...] AHEAD OF TIME! Public cord-blood jj--DONATION: [employer] [phone] [facility] Placental Blood Program, [facility] Umbilical Cord Blood Bank, Private cord-blood jj--SAVING FOR YOUR OWN USE: [employer], (I think this is the least expensive) [employer] [phone] [employer], ([phone]) [employer] [place] Cord Blood [facility], [phone] Cells, [phone] [place] Cryobank, Cord Blood Registry, (987) CORDBLOOD [employer], An Internet search may provide you with additional listings. Disposition: Return in 2 weeks (on 04/19/2018) for New OB with Sara Abdirizak. Follow-up and Disposition History Recorded Encounter Status:Closed by NETO VILLARREAL RN on 04/05/18 PROGRESS Observed: 02/26/2018 Status: COMPLETED Source: [facility] 1:16 PM [facility] HNO ID: [id number] Author: Priscilla Mcmillan Service: (none) Author Type: [...] cereals 5. Consider tracking intake aiming for 7576-2125 40% carb, 30%fat and 30% protein 6. If able aim for some cardio most days, discuss medication options of asthma with provider CHANGES IN TREATMENT: Patient met goal(s): Yes Actions to implement interventions: Tracking on keto diet Will start walking More active around the house Diet History: Breakfast - shake-fruit, tur[place] caicos islander yogurt, almond milk, protein powder; on weekends [...] ORAL) Take by mouth. Disp: Rfl: vit 23-xshc-fshfx-dha ( + DHA) 28 mg iron- 975 mcg-200 mg cmpk Take 1 tablet by mouth once daily. Disp: 30 Each Rfl: 11 albuterol (PROVENTIL) 2.5 mg/0.5 mL nebulizer solution Every 4-6 hours for wheeze/prn Disp: 50 Vial Rfl: 0 benzonatate (TESSALON PERLE) 100 mg capsule Take 1 capsule by mouth three times daily as needed for Cough. Disp: 30 capsule Rfl: 0 rizatriptan (MAXALT-STROBOROMA OPERATOR) 10 mg disintegrating tablet Take 1 tablet [...] cereals 5. Consider tracking intake aiming for 6841-9900 40% carb, 30%fat and 30% protein Nutrition Monitoring AND Evaluation: Weight loss Criteria: patient update Need for Follow up: 6 weeks Referred/Supervised by: Justino BOLAÑOS Billing Type: Re-assess/15 min 2 units SIGNATURE: Priscilla Mcmillan MS RD LD PATIENT NAME: Karissa eD Leon DATE: February 26, 2018 TIME: 1:16 PM CNCNPATED Observed: 02/26/2018 Status: COMPLETED Source: [facility] 1:15 PM [facility] Education (NUTRWS) KARISSA DE LEON ([id number]) 1990 F Date Time Provider Department 02/26/18 [...] cereals 5. Consider tracking intake aiming for 2383-7183 40% carb, 30%fat and 30% protein 6. If able aim for some cardio most days, discuss medication options of asthma with provider CHANGES IN TREATMENT: Patient met goal(s): Yes Actions to implement interventions: Tracking on keto diet Will start walking More active around the house Diet History: Breakfast - shake-fruit, [place] islander yogurt, almond milk, protein powder; on weekends [...] ORAL) Take by mouth. Disp: Rfl: vit 31-zvfn-qurip-dha ( + DHA) 28 mg iron- 975 mcg-200 mg cmpk Take 1 tablet by mouth once daily. Disp: 30 Each Rfl: 11 albuterol (PROVENTIL) 2.5 mg/0.5 mL nebulizer solution Every 4-6 hours for wheeze/prn Disp: 50 Vial Rfl: 0 benzonatate (TESSALON PERLE) 100 mg capsule Take 1 capsule by mouth three times daily as needed for Cough. Disp: 30 capsule Rfl: 0 rizatriptan (MAXALT-STROBOROMA OPERATOR) 10 mg disintegrating tablet Take 1 tablet [...] cereals 5. Consider tracking intake aiming for 4753-6569 40% carb, 30%fat and 30% protein Nutrition [...] 02/28/18 CNCNPATED Observed: 01/29/2018 Status: COMPLETED Source: [facility] 1:15 PM [facility] Education (NUTRWS) KARISSA DE LEON ([id number]) 1990 F Date Time Provider Department 01/29/18 1:15 PM BUSINESS SALES CONSULTANT [facility] NUTRWS Reason for Visit: Patient Education [91] Assessment [673] Progress Notes: Priscilla Mcmillan, MS RD JI 01/29/2018 1:55 PM Signed [facility] Nutrition Therapy: Initial Assessment Patient states [...] ORAL) Take by mouth. Disp: Rfl: vit 11-rqed-eronz-dha ( + DHA) 28 mg iron- 975 mcg-200 mg cmpk Take 1 tablet by mouth once daily. Disp: 30 Each Rfl: 11 albuterol (PROVENTIL) 2.5 mg/0.5 mL nebulizer solution Every 4-6 hours for wheeze/prn Disp: 50 Vial Rfl: 0 benzonatate (TESSALON PERLE) 100 mg capsule Take 1 capsule by mouth three times daily as needed for Cough. Disp: 30 capsule Rfl: 0 rizatriptan (MAXALT-STROBOROMA OPERATOR) 10 mg disintegrating tablet Take 1 tablet [...] no hunger has history of bulimia in [facility] . Exercise less than recommended and generally [...] cereals 5. Consider tracking intake aiming for 5135-7981 40% carb, 30%fat and 30% protein 6. [...] cereals 5. Consider tracking intake aiming for 8995-9136 40% carb, 30%fat and 30% protein 6. [...] cereals 5. Consider tracking intake aiming for 6588-1718 40% carb, 30%fat and 30% protein 6. [...] Breath Date Reviewed: 01/05/2018 Reviewed by: Sara ([facility]) Abdirizak - Fully Assessed Prescriptions as of [...] 01/29/18 PROGRESS Observed: 01/29/2018 Status: COMPLETED Source: [facility] 1:14 PM [facility] REPOSITORY HNO ID: [id number] Author: Priscilla (Ale) Hipolito Service: (none) Author Type: Registered Dietitian Type: Progress Notes Filed: 01/29/2018 1:55 PM Note Text: [facility] Nutrition Therapy: Initial Assessment Patient states [...] ORAL) Take by mouth. Disp: Rfl: vit 02-nlcb-qgmkp-dha ( + DHA) 28 mg iron- 975 mcg-200 mg cmpk Take 1 tablet by mouth once daily. Disp: 30 Each Rfl: 11 albuterol (PROVENTIL) 2.5 mg/0.5 mL nebulizer solution Every 4-6 hours for wheeze/prn Disp: 50 Vial Rfl: 0 benzonatate (TESSALON PERLE) 100 mg capsule Take 1 capsule by mouth three times daily as needed for Cough. Disp: 30 capsule Rfl: 0 rizatriptan (MAXALT-STROBOROMA OPERATOR) 10 mg disintegrating tablet Take 1 tablet [...] cereals 5. Consider tracking intake aiming for 1808-2699 40% carb, 30%fat and 30% protein 6. [...] QUANTITATIVE BL Collected: 01/08/2018 Status: F Source: [facility] 9:22 AM [facility] REPOSITORY TYPE CODE TESTS RESULT OUT OF REFERENCE UNITS RANGE LAB HCGQT <5.0 mU/mL HCG, Quantitative Bl 0.3 Result Comment: NEGATIVE Performed By: #### HCGQT #### [facility] [address] [place] [address] HCG, QUANTITATIVE BL Collected: 01/05/2018 Status: F Source: [facility] 11:19 AM [facility] TYPE CODE TESTS RESULT OUT OF REFERENCE UNITS RANGE LAB HCGQT <5.0 mU/mL HCG, Quantitative Bl 2.8 Result Comment: NEGATIVE Performed By: #### HCGQT #### [address] [address] Observed: 01/05/2018 Status: F Source: [place] URINE CULTURE 10:59 AM [facility] Sp. Request/Comment: - Specimen received in preservative Culture Result - No growth (<1,000 CFU/ml) Performed By: #### URCUL #### [place] [address] PROGRESS Observed: 01/05/2018 Status: COMPLETED Source: [place] 10:35 AM [facility] HNO ID: [id number] Author: Sara Reveles Service: (none) Author Type: Consulting Utility Forester Type: Progress Notes Filed: 01/05/2018 11:35 AM [...] children: Occupational History Occupation Employer Comment [employer] Social History Main Topics Smoking status: Never Smoker Smokeless status: Current User Types: Chew Alcohol use: Yes Comment: seldom 1 per 6 months Drug use: No Sexual activity: Yes Partners with: Male control/protection: Condom Current Outpatient Prescriptions: VITAMIN B COMPLEX (B COMPLEX 1 ORAL) Take by mouth. rizatriptan (MAXALT-STROBOROMA OPERATOR) 10 mg disintegrating tablet Take 1 tablet [...] external genitalia normal, normal [place]'s glands, urethra, [place]'s glands, no vulvar lesions, no cervical lesions, [...] SOURCE CODE 10/26/2018 Drug meperidine Hives Unknown [place] Allergy/41 HCl/[id number](RXNOR Community [id number]([facility]) Repository 10/26/2018 Drug oxycodone Hives Unknown [place] Allergy/41 HCl/W516478510(RXNOR Community [id number]) Repository 10/26/2018 Drug nitrofurantoin Hives Unknown [place] Allergy/41 macrocrystalline/F00 Community 9068735( 7065396(RXNO) [facility]) Repository 10/26/2018 Drug Sulfa (Sulfonamide Hives Unknown [place] Allergy/41 Antibiotics)/G753720 Community 0580619([facility](RXNORM) [facility]) Repository 10/26/2018 Drug ethinyl Hives Unknown [place] Allergy/41 estradiol/A574782709 Community 6303863( (RXNORM) [facility]) Repository 10/26/2018 Drug morphine/Q138814711( Hives Unknown [place] Allergy/41 RXNORM) Community 9152937([facility]) Repository 10/26/2018 Drug oxycodone/N692220722 Hives Unknown [place] Allergy/41 (RXNORM) Community 7168293([facility]) Repository 10/26/2018 Drug acetaminophen/C39218 Shortness of Unknown [place] Allergy/41 1605(RXNORM) breath Community 2222896([facility]) Repository 10/26/2018 Drug nitrofurantoin/F0060 Hives Unknown [place] Allergy/41 74002(RXNORM) Community 4721393([facility]) Repository 10/26/2018 Drug norgestimate/D360718 Hives Unknown [place] Allergy/41 529(RXNORM) Community 2383441([facility]) Repository 10/26/2018 Drug milk/N729062238(RXNO Nausea/Vom/Diar Unknown [place] Allergy/41 RM) toan Community 5785613( Hospital O[facility]) Repository 05/18/2015 DRUG SUMATRIPTAN OTHER: SEE C [facility] INGREDI/[address] [place] 1181624(SN Repository OMED CT) 05/18/2015 DRUG SUMATRIPTAN OTHER: SEE C [facility] [place] 7634318(SN Repository OMED CT) 07/25/2012 DRUG LATEX RASH Med [facility] INGREDI41 [place] 6862269(SN Repository OMED CT) 07/25/2012 DRUG LATEX RASH [facility] INGREDI41 [place] 2786119(SN Repository OMED CT) 06/12/2012 DRUG/00280 NITROFURANTOIN HIVES [facility] 1003(SNOME MONOHYD/M-CRYST [place] D [address]) Repository 06/12/2012 DRUG [facility] [place] [address] [place] 7964370(SN Repository OMED CT) 06/12/2012 DRUG/28378 ORTHO TRI-CYCLEN [facility] 1003(SNOME (21) [place] [address]) Repository 06/12/2012 DRUG OXYCODONE HIVES [facility] INGREDI41 [place] 3523737(SN Repository OMED CT) 06/12/2012 Drug SULFA (SULFONAMIDE HIVES [facility] Class/4195 ANTIBIOTICS) [place] [address](SNOM Repository ED CT) 06/12/2012 Food/02817 MILK GI UPSET Low [facility] 1000(SNOME [place] D [address]) Repository 06/12/2012 DRUG AMOXICILLIN HIVES [facility] INGREDI/41 [place] 0726292(SN Repository OMED CT) 06/12/2012 DRUG/82473 MEPERIDINE (PF) HIVES [facility] 1003(SNOME [place] [address]) Repository 06/12/2012 DRUG AMOXICILLIN [facility] INGREDI41 [place] 4428489(SN Repository OMED CT) 06/12/2012 DRUG/11247 MEPERIDINE (PF) [facility] 1003(SNOME [place] [address]) Repository 06/12/2012 DRUG/98565 NITROFURANTOIN [facility] 1003(SNOME MON[place]YD/M-CRYST [place] [address] [place]) Repository 06/12/2012 Food/53826 MILK GI UPSET [facility] 1000(SNOME [place] D [address]) Repository 06/12/2012 DRUG MORPHINE HIVES [facility]/41 [address] [place] 5792901(SN Repository OMED CT) 06/12/2012 DRUG/14645 ORTHO TRI-CYCLEN HIVES [facility] 1003(SNOME (21) [place] [address]) Repository 06/12/2012 DRUG OXYCODONE HIVES [facility]/ [place] 1657265(SN Repository OMED CT) 06/12/2012 Drug SULFA (SULFONAMIDE HIVES [facility] Class/4195 ANTIBIOTICS) [place] [address]87(SNOM Repository ED CT) 06/12/2012 DRUG ACETAMINOPHEN [facility]/ [address] [place] 7379425(SN Repository OMED CT) ENCOUNTERS ENCOUNTERS ADMIT/DISCHARGE ACCOUNT ADMITTING ENCOUNTER LOCATION SOURCE NUMBER CLASS 11/09/2018/11/13/20 [id number] Ambulatory [address] Repository 10/31/2018/11/01/20 [id number] Ambulatory [address] Repository 10/26/2018/10/28/20 [id number] Alejandro, Inpatient [address] ing:WPRoom: Repository SN743Lis: 1 10/26/2018 [id number] [facility] ing:ED Repository 10/25/2018 [id number] [facility] ing:LABSPEC Repository 10/24/2018/10/26/20 [id number] Ambulatory [address] Repository 10/24/2018/10/24/[id number] ing:WPOUTRoom Repository : [id number] 10/15/2018/10/16/20 [id number] Ambulatory [address] Repository 10/15/2018/10/16/20 [id number] Ambulatory [address] Repository 10/10/2018/10/12/20 [id number] Ambulatory [address] Repository 10/04/2018/10/05/20 [id number] Ambulatory [address] [place] Repository 09/28/2018/10/02/20 [id number] Ambulatory [facility] [address] [place] Repository 09/21/2018/09/27/20 [id number] Ambulatory [place] [facility] [facility] 09/13/2018/09/14/20 [id number] [facility] 09/13/2018/09/13/20 [id number] [facility] 09/12/2018/09/12/20 [id number] [facility] 09/12/2018/09/13/20 [id number] [facility] 08/30/2018/08/30/20 [id number] [facility] 08/30/2018/08/31/20 [id number] [facility] 08/28/2018/08/29/20 [id number] [facility] 08/03/2018/08/06/20 [id number] [facility] 07/05/2018/07/05/20 [id number] [facility] 07/05/2018/07/06/20 [id number] [facility] 06/06/2018/06/08/20 [id number] [facility] 05/10/2018/05/14/20 [id number] [facility] 04/24/2018/04/26/20 [id number] [facility] 04/19/2018/04/19/20 [id number] [facility] 04/19/2018/04/19/20 [id number] [facility] 04/12/2018/04/16/20 [id number] [facility] 04/05/2018/04/09/20 [id number] [facility] 02/26/2018/02/29/20 [id number] [facility] 01/29/2018/01/31/20 [id number] [facility] 01/08/2018/01/08/20 [id number] [facility] 01/05/2018/02/09 [id number] Ambulatory [address] Repository 01/05/2018/01/05/[id number] Repository PAYERS PAYERS ENCOUNTER GUARANTOR PAYER SUBSCRIBER SOURCE 10/26/2018 KARISSA Swann Primary TAMIR R [place] [id number] [place]MIN[place] [facility] [id number], Number: Repository [place] [address]Mjb: [id number] Date:[id number] [address] () [address], [place] [address]TC: 10/26/2018 Secondary NOT GIVENUNK [place] Insurance:SELF PAY [facility] Number: Effective Repository Date:2018-10-26 10/26/2018 KARISSA Swann Primary TAMIR R Wiley [id number] [place] Insurance[place]ICAL ST[place]ER[place] [facility] [id number], Number: Repository [place] [id number]: [id number] Date:7507-00-30OF [address] () [address], [place] [address]KT: 10/26/2018 Secondary NOT GIVENUNK [place] Insurance:SELF PAY [facility] Number: Effective Repository Date:2018-10-26 10/25/2018 KARISSA Swann Primary TAMIR R [place] [id number] [place] Insurance[place]ICAL [place] [facility] [id number], Number: Repository [place] [id number]: [id number] Date:[id number] [address] () [address], [place] [address]FE: 10/25/2018 Secondary NOT GIVENUNK Wiley Insurance:SELF PAY [facility] Number: Effective Repository Date:2018-10-25 10/24/2018 KARISSA Swann Primary TAMIR R Wiley [id number] [place] Insurance[place] [facility] [id number], Number: Repository [place] [address]Yqc: [id number] Date:6364-29-13[address] (YW) [address], [place] [address]LG: 10/24/2018 Secondary NOT GIVENUNK Wiley Insurance:SELF PAY [facility] Number: Effective Repository Date:2018-10-24
== END ==
PROVIDERS: Family Provider Pediatrics; PCP Pediatrics; Referring Provider Obstetrics & Gynecology; Visit Provider Obstetrics & Gynecology
DX: O26.893 Other specified pregnancy related conditions, third trimester (principal); R51 Headache; Z3A.33 33 weeks gestation of pregnancy
CPT/HCPCS: 81050; 82570

== ENCOUNTER 2018-10-26 13:35 | Inpatient (IN) | payer OTHER, SELFPAY ==
[2018-10-26] VITALS (11 sets, daily range): BP systolic 106–149; BP diastolic 55–87; PULSE 75–96; RESP 15–22; TEMP 35.6–36.4; O2SAT 95–99; BMI 40.1
[2018-10-26 12:33] LABS: Protein, Urine (Random) 7.3 mg/dL (<11.9); Protein:Creat Ratio 241 mg/g CRE (0-200)
[2018-10-26 12:36] LABS: Hematocrit 34.9 % (37-47); Hemoglobin 11.8 g/dl (12.0-15.0); Mean Corp Hgb Conc 33.8 g/gl (32-36); Mean Corpuscular Hgb 32.3 pg (27.0-32.0); Mean Corpuscular Volume 95.6 fL (81-99); Mean Platelet Vol. 11.9 fl (6.2-12.0); Platelet Count 135 K/mm3 (150-450); RBC Distribution Width SD 43.1 fl (35.1-43.9); Red Blood Count 3.65 M/mm3 (4.2-5.4); White Blood Count 11.4 K/mm3 (4.4-11.0)
[2018-10-26 12:41] LABS: Prothrombin Time (Protime)PT. 12.8 SECONDS (11.7-14.9)
[2018-10-26 12:42] LABS: Partial Thromboplast Time 24.8 Seconds (24.1-36.2)
[2018-10-26 12:43] LABS: Scan Indicated on CBC? Y/N NO
--- NOTE | 2018-10-26 12:43 | OB.TRI.HP_ITS ---
- Problem List (1) Hypertension affecting in third trimester Status: Acute (2) Loss of peripheral visual field Status: Acute History of Present Illness Date of Service: 10/26/18 Was patient seen by the physician?: Yes Reason For Visit: R/O PRE E Date of Service: 10/26/18 Final SNEHA: 12/06/18 Gestational age: 34 Weeks and 1 Days History of Present Illness: Presented to ED with complaint of severe right sided occipital headache that radiates along right side of head. Rating pain 8/10 but increases to 10/10 with sharp shooting pain from back of head to straight behind her eye. This am around 0700 lost right sided peripheral vision. No other visual changes or left sided vision loss. Having photosensitivity at this time. She has a history of migraines but this is different for her and not a typical migraine. Headache started on 10/23/18 and has not got relief. Seen in office and sent to L&D for evaluation of headache on 10/24/18 and mildly elevated BP SBP 130s/80s. Pre- eclampsia labs, protein/creatine ration, and 24 hour urine normal. Platelets were low at 142 at that time. Has nausea but no emesis. Denies any RUQ abdominal pain. No BLE edema but admits to increased swelling in hands bilaterally, had to change wedding ring and replaced with a larger ring, this morning that ring is now tighter. No pitting edema in hands. Here with family. Denies any abdominal pain, contractions, leakage of fluid or vaginal bleeding. Upon arrival to L&D BP was 169/108. History of HTN in 2011 and was treated for approximately 6 months then did not require further treatment, BP has been normal since then. Allergies acetaminophen [From Tylenol] Allergy (Verified 10/26/18 11:01) Shortness of breath ethinyl estradiol [From Ortho Tri-Cyclen (28)] Allergy (Verified 10/26/18 11:01) Hives meperidine HCl [From Demerol] Allergy (Verified 10/26/18 11:01) Hives milk Allergy (Verified 10/26/18 11:01) Nausea/Vom/Diarrhea morphine Allergy (Verified 10/26/18 11:01) Hives nitrofurantoin [From Macrobid] Allergy (Verified 10/26/18 11:01) Hives nitrofurantoin macrocrystalline [From Macrobid] Allergy (Verified 10/26/18 11:01) Hives norgestimate [From Ortho Tri-Cyclen (28)] Allergy (Verified 10/26/18 11:01) Hives oxycodone [Oxycodone] Allergy (Verified 10/26/18 11:01) Hives oxycodone HCl [From OxyContin] Allergy (Verified 10/26/18 11:01) Hives Sulfa (Sulfonamide Antibiotics) Allergy (Verified 10/26/18 11:01) Hives - Pertinent Past Medical History Medical History: Past Medical History (Last Updated 10/24/18 @ 20:28 by Scarlet Nagy DO) Anxiety Asthma Depression Migraines Hypertension Surgical History: Past Surgical History (Last Updated 10/24/18 @ 20:28 by Scarlet Nagy DO) H/O LEEP Laboratory Studies: Laboratory Tests 10/26/18 Range/Units 12:17 U Random Total Protein 7.3 (<11.9) mg/dL Urine Creatinine 30.30 (NO RANGE EST.) mg/dL Protein/Creatinin Ratio 241 H (0-200) mg/g CRE Review of Systems Constitutional: Denies: Chills, Fever, Weight Change Eyes: Reports: Vision Change - Right side peripheral vision is lost. No left sided visual changes or scotoma. HEENT: Reports: Head Aches - Severe headache rating pain 8/10 but intermittently shooting pain 10/10.. Denies: Sinus Congestion, Sinus Drainage Cardiovascular: Reports: Edema - Per patient increased swelling in hands bilaterally. Denies: Chest Pain Respiratory: Denies: Shortness of Breath Gastrointestinal: Reports: Nausea. Denies: Abdominal Pain, Vomiting Genitourinary: Denies: Dysuria Musculoskeletal: Denies: Joint Pain, Joint Tenderness Neurological: Reports: Blurred vision. Denies: Numbness, Tingling Psychiatric: Denies: Anxiety, Depression, Homicidal Ideations, Suicidal Ideations Physical Exam General: Alert, Oriented x3, - - increased pain with headache HEENT: Atraumatic, PERRLA, EOMI, Normocephalic Cardiovascular: Regular rate, Regular Rhythm, No murmurs Lungs: Clear to auscultation, Normal air movement, No rhonchi, No wheeze Abdomen: Bowel Sounds Present, Non Tender, Gravid, - - No RUQ tendernes Extremities:: No edema, Deep tendon reflexes - Symmetrical +1/4 bilaterally. No Clonus bilaterally. Hands with no visible or pitting edema Estimated gestational size: Appropriate for gestational size NST - FHR Rate Baby A Baseline: 135 Variability:: Moderate Accelerations:: 15 x 15 Decelerations:: None NST Reactive:: Yes FHR Category:: Category I Uterine Activity:: None Impression/Plan A: 27 year old female, at 34w1d by 1st trimester U/S Gestational HTN P: 1) Keep in observation for serial blood pressures, Protein/Creatinine ration and pre-eclampsia labs. Awaiting results. 2) Consult for co-management due to and blood pressures in severe range 3) Pain management for headache 4) [place] now and repeat in 24hrs. Sara Reveles APRN, CNM
[2018-10-26 12:51] LABS: AST(SGOT) 18 U/L (15-37); Alanine Aminotransfer ALT/SGPT 19 U/L (13-56); Creatinine, Serum 0.42 mg/dL (0.55-1.02); EST Glomerular Filtration Rate 189 mL/min (>60); Est Glom Filt Rate - Afr Amer 228 mL/min (>60); Estimated Creatinine Clearance 170.67 ml/min; Uric Acid 3.8 mg/dL (2.6-6.0)
[2018-10-26] MEDS: Betamethasone/Betamethasone 30 MG/5 ML Vial 12 MG IM (13:00)
--- NOTE | 2018-10-26 13:46 | CT_ITS ---
STUDY: CT BRAIN WITHOUT CONTRAST REASON FOR EXAM: Female, 28 years old. Headache RADIATION DOSAGE (If Supplied By Facility): CTDIvol = ( 16.81 ) mGy, DLP = ( 975.86 ) mGycm TECHNIQUE: Transaxial CT imaging of the brain was performed without administration of intravenous contrast material. Individualized dose optimization techniques were used for this CT. COMPARISON: None. FINDINGS: The soft tissues are unremarkable. The osseous structures are unremarkable. Normal size ventricles and extra-axial spaces for the patient's age. The white matter tracts are unremarkable. The basal ganglia and thalami are unremarkable. No abnormalities are seen in the brainstem. The cerebellum is unremarkable. There is no intracranial hemorrhage. There are no findings of acute ischemia. The visualized sinuses are unremarkable. CT/Brain/Head without Contrast IMPRESSION: No acute intracranial abnormalities. Electronically Signed: Jerilyn Pérez MD at 17:14 EST Tel Direct: [phone], Service support ,
[2018-10-26] MEDS: Labetalol 200 MG Tablet PO (14:07)
[2018-10-26] MEDS: Ondansetron 4 MG/2 ML Vial IV (14:15)
[2018-10-26] MEDS: HYDROmorphone 1 MG/ML Syringe IV (14:16)
[2018-10-26] MEDS: Lactated Ringers 1,000 ML 50 ML IV (14:55)
[2018-10-26 16:59] LABS: Mean Corp Hgb Conc 33.3 g/gl (32-36); Mean Corpuscular Hgb 31.7 pg (27.0-32.0); Mean Corpuscular Volume 95.1 fL (81-99); Mean Platelet Vol. 11.7 fl (6.2-12.0); Platelet Count 136 K/mm3 (150-450); RBC Distribution Width CV 13.3 % (11.6-14.6); RBC Distribution Width SD 45.6 fl (35.1-43.9); Red Blood Count 3.47 M/mm3 (4.2-5.4); White Blood Count 13.2 K/mm3 (4.4-11.0)
[2018-10-26 17:00] LABS: Scan Indicated on CBC? Y/N NO
--- NOTE | 2018-10-26 18:16 | PCM.HP.OB ---
History Date of Admission: 10/26/18 Final SNEHA: 12/06/18 Final SNEHA Source: US <20 weeks Gestational age: 34 Weeks and 1 Days History of this : This is a 28 year-old, G [], P [], at 34 weeks gestational age. Medical History: Medical History (Last Updated 10/24/18 @ 20:28 by Scarlet Nagy DO) Anxiety F41.9 Asthma J45.909 Depression F32.9 Migraines G43.909 Hypertension I10 Surgical History: Surgical History (Last Updated 10/24/18 @ 20:28 by Scarlet Nagy DO) H/O LEEP Z98.890 Allergies acetaminophen [From Tylenol] Allergy (Verified 10/26/18 11:01) Shortness of breath ethinyl estradiol [From Ortho Tri-Cyclen (28)] Allergy (Verified 10/26/18 11:01) Hives meperidine HCl [From Demerol] Allergy (Verified 10/26/18 11:01) Hives milk Allergy (Verified 10/26/18 11:01) Nausea/Vom/Diarrhea morphine Allergy (Verified 10/26/18 11:01) Hives nitrofurantoin [From Macrobid] Allergy (Verified 10/26/18 11:01) Hives nitrofurantoin macrocrystalline [From Macrobid] Allergy (Verified 10/26/18 11:01) Hives norgestimate [From Ortho Tri-Cyclen (28)] Allergy (Verified 10/26/18 11:01) Hives oxycodone [Oxycodone] Allergy (Verified 10/26/18 11:01) Hives oxycodone HCl [From OxyContin] Allergy (Verified 10/26/18 11:01) Hives Sulfa (Sulfonamide Antibiotics) Allergy (Verified 10/26/18 11:01) Hives Home Medications: Home Medications Aspirin [Aspirin, Baby] 81 mg PO DAILY@0800 10/24/18 Loratadine/Pseudo 240/10 [Claritin-D 24 Hr] 1 tablet PO DAILY 10/24/18 Magnesium Oxide [Magnesium] 400 mg PO DAILY 10/24/18 Vits [Prenatabs FA] 1 tablet PO DAILY 10/24/18 Smoking Status: Never smoker Alcohol: None Substance Use Type: Alcohol Number of Fetus(es): 1 Heart Tracing: Normal baseline, moderate variability, some accelerations. No recurrent decelerations TOCO Analysis: No regular contractions History Past Pregnancies: Past Pregnancies Delivery Date Name GA/Weeks Outcome Route Weight Infant Gender Labor Length Anesthesia Delivery Location Provider FOB Review of Systems Constitutional: Denies: Chills, Fever Eyes: Denies: Blurred vision HEENT: Denies: Difficulty Hearing Cardiovascular: Reports: Edema. Denies: Chest Pain, Chest Pressure, Chest Tightness Respiratory: Denies: Shortness of Breath Gastrointestinal: Denies: Abdominal Pain Genitourinary: Denies: Dysuria Skin: Denies: Rash Neurological: Reports: Headaches - Severe x 4 days, worse this am to the point she came to ED. Better after dilauded but now back and so severe she is shaking., - - + for change in vision Physical Exam General: Alert, Cooperative, - - uncomfortable HEENT: PERRLA Cardiovascular: Regular rate Lungs: Clear to auscultation, Normal air movement Abdomen: Soft, Non Tender, Gravid, Appropriate for Gestational Age Extremities:: Deep tendon reflexes - 4+, 4 beats of clonus, Other - edema 2+ LE Estimated gestational size: Appropriate for gestational size Presentation: Cephalic Assessment/Plan All Active Problems (Last Updated 10/24/18 @ 20:28 by Scarlet Nagy DO) Headache (Acute) Hypertension affecting in third trimester (Acute) Loss of peripheral visual field (Acute) This is a 28 year-old, @ 34 1/7 weeks gestation w/ preeclampsia w/ severe features On magnesium Upon presentation in the ER, there was a question as to whether her pressures were reaction to the anxiety and pain from her headache and she was having an atypical migraine or an acute neurological issue. However, her CAT scan is negative for acute intracranial issues. Her blood pressures remain persistently elevated even after treatment of her headache. She was initiated on magnesium prophylaxis for diagnosis of preeclampsia with severe features. Her laboratory studies are normal and stable other than some mild thrombocytopenia. At this point, her reflexes have gotten more hyperreflexic and she has significant clonus. In addition, her headache has rebounded and is as bad or worse than it was before the IV Dilaudid. In addition, her blood pressure is labile. A brief ultrasound was done which reveals that the fetus is breech. I discussed with her and her partner risk benefits and alternatives to attempted external cephalic version and induction of labor versus primary section. With the severity of her symptoms, I recommended expediting delivery. In addition we discussed that if she had a version and then induction, that the fetus did not tolerate prolonged induction. In addition, there is a chance that the fetus can convert back to breech. After this discussion, patient desires section. Consent was signed. Anesthesia is aware of the situation. At this point her blood pressures are stable enough she does not need any IV antihypertensives, but will need to follow this and likely be on oral antihypertensive postoperatively. Continue magnesium prophylaxis postoperatively. Special care nursery team was alerted. Patient did receive 1 dose of betamethasone earlier today.
[2018-10-26 18:17] LABS: Group B Strep DNA By PCR Negative (Negative); Internal Control PASS; Probe Check PASS; Specimen Processing Control PASS
[2018-10-26] MEDS: Sodium Citrate/Citric Acid 30 ML UDC PO (18:45)
[2018-10-26] MEDS: Cefazolin 2 GM in 0.9% Normal Saline 100 ML IV (18:52)
[2018-10-26] MEDS: Oxytocin 30 units/NS 500 ml 30 UNITS/500 ML IV.SOLN 167 UNITS IV (19:05)
--- NOTE | 2018-10-26 19:41 | OP.PCM_ITS ---
Delivery Classification: DAVID Final SNEHA: 12/06/18 Gestational age: 34 Weeks and 1 Days Indications for : Breech, - - Preeclampsia with severe features Description of Procedure: Preoperative diagnosis: 34-week intrauterine , breech presentation, preeclampsia with severe features Postoperative diagnoses: Same Surgeon: Elena Allen MD [employer] Teacher:Iman MONET Anesthesia- Spinal- Iman Grossman MD complications- None The patient was taken to the operating room. She was prepped and draped in the dorsal supine position with a leftward tilt. A Pfannenstiel skin incision was made approximately 2 cm above the symphysis pubis and carried through to underlying layer fascia with the scalpel. The fascia was incised incised in the midline and extended laterally with the Haines scissors. The fascia was dissected off the rectus muscles with blunt and sharp dissection. The rectus muscles were in the midline and the peritoneum was entered sharply. The peritoneal incision was stretched and the bladder blade was placed. The uterine incision was made in a low transverse fashion with the scalpel and extended superiorly and inferiorly with blunt dissection. The amniotic membranes were ruptured bluntly and clear amniotic fluid returned. The infant's breech was brought to the incision and delivered. The was turned to back up and the legs were swept out individually and then the arms. The head was then delivered in a flexed position with fundal pressure in the standard fashion very easily and in less than 15 seconds without difficulty. The loose nuchal cord was then reduced. The mouth and nares were bulb suctioned. The cord was clamped and cut as the was stimulated. Cord clamping was delayed. The was handed off to the waiting nursing staff. The placenta was delivered with fundal massage and gentle traction in the standard fashion. The uterus was exteriorized and cleared of all clots and debris. The cervix was dilated with a ring forcep. The uterine incision was closed with #1 Vicryl in a running locked fashion. A second layer of the same suture was used in an imbricating fashion. The incision was examined and was found to be hemostatic. The uterus was placed back into the peritoneal cavity and hemostasis was again confirmed. The rectus muscles were examined and any bleeding was Bovie cauterized. The parietal peritoneum was closed with 3-0 Vicryl suture. The rectus muscles were closed with an 0 Vicryl running suture. The surgical teams outer gloves were then changed. The rectus fascia was examined and any bleeding was Bovie cauterized and the rectus fascia was closed with #1 PDS suture in a running standard fashion. The subcutaneous tissue was examining and any bleeding was Bovie cauterized. The subcutaneous tissue was reapproximated with 3-0 Vicryl suture. The skin was closed in a subcuticular fashion with Monocryl suture. I performed the entire procedure with assistance. All sponge, lap, and needle counts were correct. The patient was taken to her room for recovery in a stable condition. Amniotic Membrane Rupture Type: Artificial Amniotic Fluid Description: Clear Placenta Disposition: Sent with transport team Drain: [place] to straight drain Fluids Replaced: LR Cord Entanglement: Around neck x 1, loose Nuchal Cord Compression: Without compression Cord Vessel Description: 3 Vessels Esitmated Blood Loss (ml): 600 Infant Gender: Female (1 minute): 8 (5 minute): 8 Delayed cord clamping: Yes Pre-op Antibiotic Given: Ancef 2 grams IV x1 Complications: None - Admit VTE Documentation VTE Present on Admission: No VTE Mechan Device Prophylaxis: SCD's VTE Pharm Prophylaxis ordered?: Yes
[2018-10-27] VITALS (22 sets, daily range): BP systolic 102–145; BP diastolic 55–89; PULSE 64–86; RESP 16–18; TEMP 36.1–37.3; O2SAT 94–98
[2018-10-27] MEDS: Lactated Ringers 1,000 ML 50 ML IV (01:10)
[2018-10-27] MEDS: Ketorolac 30 MG/ML Syringe IV ×4 (01:10→18:50)
[2018-10-27] MEDS: Magnesium Sulfate 20 GM/500 ML BAG IV ×2 (03:11→13:08)
[2018-10-27] MEDS: Enoxaparin 40 MG/0.4 ML Syringe SC (05:10)
[2018-10-27 05:26] LABS: Hematocrit 29.9 % (37-47); Hemoglobin 10.1 g/dl (12.0-15.0); Mean Corp Hgb Conc 33.8 g/gl (32-36); Mean Corpuscular Hgb 32.8 pg (27.0-32.0); Mean Corpuscular Volume 97.1 fL (81-99); Mean Platelet Vol. 11.4 fl (6.2-12.0); Platelet Count 162 K/mm3 (150-450); RBC Distribution Width CV 12.9 % (11.6-14.6); RBC Distribution Width SD 43.1 fl (35.1-43.9); Red Blood Count 3.08 M/mm3 (4.2-5.4); White Blood Count 20.6 K/mm3 (4.4-11.0)
[2018-10-27 05:27] LABS: Scan Indicated on CBC? Y/N NO
--- NOTE | 2018-10-27 09:03 | PCM.PN.OB ---
Patient Problems: Active and Suspected Problems (Last Updated 10/24/18 @ 20:28 by Scarlet Nagy DO) Hypertension affecting in third trimester (Acute) Loss of peripheral visual field (Acute) Subjective: Pain well controlled. No nausea or vomiting. Patient states her headache is resolved. She denies any visual disturbances or epigastric pain. She states she is very hungry. She denies any chest pain, shortness of breath or lightheadedness. - Physical Exam General: Alert, Cooperative, No apparent distress Lungs: Normal air movement Abdomen: Soft, Non-Distended, Tender - Appropriately, - - Fundus firm approximately 2 cm below the umbilicus Extremities: Edema - 1+, - - 2+ DTRs, 2-3 beats of clonus bilateral Skin: Incision - Bandage clean dry and intact Vital Signs Temp Pulse Resp BP Pulse Ox 97.6 F L 69 18 105/67 96 10/27/18 07:59 10/27/18 07:59 10/27/18 07:59 10/27/18 07:59 10/27/18 07:59 Oxygen Delivery Method Room Air Weight: 106 kg Body Mass Index (BMI) 40.1 Intake and Output for Last 24 Hours 10/25/18 10/26/18 10/27/18 23:59 23:59 23:59 Intake Total 1515 / 1515 585 / 585 Output Total 800 / 800 1400 / 1400 Balance 715 / 715 -815 / -815 Laboratory Tests Past 24 Hrs 10/26/18 10/26/18 10/26/18 12:17 12:25 12:25 WBC 11.4 H RBC 3.65 L Hgb 11.8 L Hct 34.9 L MCV 95.6 MCH 32.3 H MCHC 33.8 RDW 13.0 RDW Differential 43.1 Plt Count 135 L MPV 11.9 PT 12.8 INR 1.0 APTT 24.8 Creatinine Estim Creat Clear Calc Est GFR (MDRD) Af Amer Est GFR (MDRD) Non-Af Uric Acid AST ALT U Random Total Protein 7.3 Urine Creatinine 30.30 Protein/Creatinin Ratio 241 H Group B Strep DNA Specimen Comment Blood Type Antibody Screen 10/26/18 10/26/18 10/26/18 12:25 14:10 15:55 WBC RBC Hgb Hct MCV MCH MCHC RDW RDW Differential Plt Count MPV PT INR APTT Creatinine 0.42 L Estim Creat Clear Calc 170.67 Est GFR (MDRD) Af Amer 228 Est GFR (MDRD) Non-Af 189 Uric Acid 3.8 AST 18 ALT 19 U Random Total Protein Urine Creatinine Protein/Creatinin Ratio Group B Strep DNA Negative Specimen Comment Not Reportable Blood Type A POSITIVE Antibody Screen NEGATIVE 10/26/18 10/27/18 16:49 05:15 WBC 13.2 H 20.6 H RBC 3.47 L 3.08 L Hgb 11.0 L 10.1 L Hct 33.0 L 29.9 L MCV 95.1 97.1 MCH 31.7 32.8 H MCHC 33.3 33.8 RDW 13.3 12.9 RDW Differential 45.6 H 43.1 Plt Count 136 L 162 MPV 11.7 11.4 PT INR APTT Creatinine Estim Creat Clear Calc Est GFR (MDRD) Af Amer Est GFR (MDRD) Non-Af Uric Acid AST ALT U Random Total Protein Urine Creatinine Protein/Creatinin Ratio Group B Strep DNA Specimen Comment Blood Type Antibody Screen Medical Necessity - Tobacco Use Smoking Status: Never smoker Assessment/Plan All Active Problems (Last Updated 10/24/18 @ 20:28 by Scarlet Nagy DO) Headache (Acute) Hypertension affecting in third trimester (Acute) Loss of peripheral visual field (Acute) Postoperative day #1 status post primary section for breech, 34-week , and preeclampsia with severe features. Patient's headache is much better today. Her reflexes are improved. She is diuresing well. Her blood pressures are stable and she is not currently on any oral medications. It has been greater than 12 hours since delivery and she is stable. Okay to advance diet. Okay to lift fluid restriction since she is diuresing. Continue magnesium sulfate prophylaxis until 24 hours after delivery. Mild acute blood loss anemia appropriate for blood loss during delivery. Will increase ambulation and DC [place] once magnesium is discontinued. Blood pressures are stable and she is not on any antihypertensives right now. We will monitor her blood pressure. Patient is aware that she may need some oral antihypertensives depending on her blood pressures when she is up and more active.
[2018-10-27] MEDS: Senna/Docusate Sodium 1 Tablet PO ×2 (13:08→23:34)
[2018-10-27] MEDS: 0.9% Saline Lock 10 ML Syringe IV (18:50)
[2018-10-28] MEDS: Ketorolac 30 MG/ML Syringe IV ×3 (01:34→14:01)
[2018-10-28] MEDS: 0.9% Saline Lock 10 ML Syringe IV ×3 (01:35→14:01)
[2018-10-28 04:00] VITALS: BP 144/83; PULSE 83; RESP 16; TEMP 36.8; O2SAT 95
[2018-10-28] MEDS: Enoxaparin 40 MG/0.4 ML Syringe SC (06:48)
[2018-10-28 08:22] VITALS: BP 143/87; PULSE 80; RESP 18; TEMP 36.3; O2SAT 97
--- NOTE | 2018-10-28 09:49 | PCM.PN.OB ---
Patient Problems: Active and Suspected Problems (Last Updated 10/24/18 @ 20:28 by Scarlet Nagy DO) Delivery by section for breech presentation (Acute) Hypertension affecting in third trimester (Acute) Loss of peripheral visual field (Acute) Preeclampsia, severe (Acute) Subjective: Doing well per patient and nursing staff. Ambulating and taking PO without difficulty. Mild headache, resolved after having coffee this am. Denies any visual changes, feeling much better since section. Denies SOB, CP, Pain, increased vaginal bleeding, clots, or leg pain. Baby transferred to [facility], coping well at this time just anxious to see baby, with baby at this time. Pumping breastmilk. - Physical Exam General: Alert, Oriented x3, Cooperative HEENT: Atraumatic, PERRLA, EOMI, Normocephalic Neck: Supple Lungs: Clear to auscultation, Normal air movement, No rhonchi, No wheeze Cardiovascular: Regular rate, Regular Rhythm, No murmurs Abdomen: Bowel Sounds Present, - - Fundus firm 3 below U. Incision clean, dry, and intact. Extremities: Edema - +1 BLE, pitting Skin: No rashes, No breakdown Musculoskeletal: No Tenderness to Palpation of Joints or Extremities Neurological: Deep Tendon Reflexes 2+/4 and Symmetrical Psych/Mental Status: Normal Affect, Appropriate Vital Signs Temp Pulse Resp BP Pulse Ox 97.4 F L 80 18 143/87 H 97 10/28/18 08:22 10/28/18 08:22 10/28/18 08:22 10/28/18 08:22 10/28/18 08:22 Oxygen Delivery Method Room Air Weight: 233 lb 11.04 oz Body Mass Index (BMI) 40.1 Intake and Output for Last 24 Hours 10/26/18 10/27/18 10/28/18 23:59 23:59 23:59 Intake Total 1515 / 1515 1444 / 1444 Output Total 800 / 800 5200 / 5200 600 / 600 Balance 715 / 715 -3756 / -3756 -600 / -600 Microbiology Past 72 Hours 10/26/18 Unknown Group B Streptococcus Culture - Preliminary Genital vaginal Medical Necessity - Tobacco Use Smoking Status: Never smoker Assessment/Plan All Active Problems (Last Updated 10/24/18 @ 20:28 by Scarlet Wiswell, DO) Delivery by section for breech presentation (Acute) Headache (Acute) Hypertension affecting in third trimester (Acute) Loss of peripheral visual field (Acute) Preeclampsia, severe (Acute) A:PPD #2 Section P: 1) Routine post op and care. 2) BP elevated and trending upward. Consulted regarding elevated BP and to start Labetalol 100mg PO BID. 3) Return in 3 days for BP check in office. Reviewed Pre-e symptoms and when to call. 4) Return in 2 weeks for incision check and 6 weeks for visit. 5) Oxycodone for pain, allergic to acetaminophen.
--- NOTE | 2018-10-28 09:52 | PN.OBGYN_ITS ---
Patient Problems: Active and Suspected Problems (Last Updated 10/24/18 @ 20:28 by Scarlet Nagy DO) Delivery by section for breech presentation (Acute) Hypertension affecting in third trimester (Acute) Loss of peripheral visual field (Acute) Preeclampsia, severe (Acute) Subjective: Doing well per patient and nursing staff. Ambulating and taking PO without difficulty. Mild headache, resolved after having coffee this am. Denies any visual changes, feeling much better since section. Denies SOB, CP, Pa in, increased vaginal bleeding, clots, or leg pain. Baby transferred to [facility], coping well at this time just anxious to see baby, with baby at this time. Pumping breastmilk. - Physical Exam General: Alert, Oriented x3, Cooperative HEENT: Atraumatic, PERRLA, EOMI, Normocephalic Neck: Supple Lungs: Clear to auscultation, Normal air movement, No rhonchi, No wheeze Cardiovascular: Regular rate, Regular Rhythm, No murmurs Abdomen: Bowel Sounds Present, - - Fundus firm 3 below U. Incision clean, dry, and intact. Extremities: Edema - +1 BLE, pitting Skin: No rashes, No breakdown Musculoskeletal: No Tenderness to Palpation of Joints or Extremities Neurological: Deep Tendon Reflexes 2+/4 and Symmetrical Psych/Mental Status: Normal Affect, Appropriate Vital Signs Temp Pulse Resp BP Pulse Ox 97.4 F L 80 18 143/87 H 97 10/28/18 08:22 10/28/18 08:22 10/28/18 08:22 10/28/18 08:22 10/28/18 08:22 Oxygen Delivery Method Room Air Weight: 233 lb 11.04 oz Body Mass Index (BMI) 40.1 Intake and Output for Last 24 Hours 10/26/18 10/27/18 10/28/18 23:59 23:59 23:59 Intake Total 1515 / 1515 1444 / 1444 Output Total 800 / 800 5200 / 5200 600 / 600 Balance 715 / 715 -3756 / -3756 -600 / -600 Microbiology Past 72 Hours 10/26/18 Unknown Group B Streptococcus Culture - Preliminary Genital vaginal Medical Necessity - Tobacco Use Smoking Status: Never smoker Assessment/Plan All Active Problems (Last Updated 10/24/18 @ 20:28 by Scarlet Wiswell, DO) Delivery by section for breech presentation (Acute) Headache (Acute) Hypertension affecting in third trimester (Acute) Loss of peripheral visual field (Acute) Preeclampsia, severe (Acute) A:PPD #2 Section P: 1) Routine post op and care. 2) BP elevated and trending upward. Consulted regarding elevated BP and to start Labetalol 100mg PO BID. 3) Return in 3 days for BP check in office. Reviewed Pre-e symptoms and when to call. 4) Return in 2 weeks for incision check and 6 weeks for visit. 5) Oxycodone for pain, allergic to acetaminophen.
[2018-10-28] MEDS: Labetalol 100 MG Tablet PO (11:16)
[2018-10-28 11:17] VITALS: BP 150/88; PULSE 69
--- NOTE | 2018-10-28 11:18 | PCM.DCCSEC ---
Discharge Diet: No Restrictions Discharge Activity: May not drive while taking narcotic pain medications., May Shower May resume sexual activity in: 4-6 weeks Weight Bearing Status: Full weight bearing Lifting Restrictions: less than 20lbs Call your doctor if your incision/area has: Continuous Slow Oozing, Sudden Increased Bleeding, Increased Pain/ Swelling, Increased Redness, Foul Smelling Discharge, Swelling at the incision site Call your doctor if you observe: Fever of 101 or Higher, Coldness, Increased Pain, Inability to urinate, Inability to have a bowel movement, Using more than one pad per hour, Shortness of breath, Chest pain, Increased palpitations (irregular heartbeat), Calf discomfort, Uncontrolled pain Remove Dressing in (days):: 5 Instructions: After a Additional Instructions: If you experience any of the following, contact your healthcare provider. Bleeding that soaks a pad every hour for 2 hours Fever 100.4 or higher Unrelieved incision or abdominal pain Swelling, redness, discharge or bleeding from your incision or episiotomy site Your incision begins to separate Problems urinating (including inability to urinate or burning while urinating). Visual changes Severe headache Flu-like symptoms Pain or redness in one of both of your breasts Pain, warmth, tenderness or swelling in your legs, especially the calf area Frequent nausea and vomiting Symptoms of depression or anxiety If you experience any of the following, call 911 or go to the nearest Emergency Room. Chest pain Problems breathing Seizure activity Partial or complete paralysis of a body part, slurred speech, weakness or drooping of the face, or a sudden inability to walk or hold your balance Allergies/Adverse Reactions: Allergies acetaminophen [From Tylenol] Allergy (Verified 10/26/18 11:01) Shortness of breath ethinyl estradiol [From Ortho Tri-Cyclen (28)] Allergy (Verified 10/26/18 11:01) Hives meperidine HCl [From Demerol] Allergy (Verified 10/26/18 11:01) Hives milk Allergy (Verified 10/26/18 11:01) Nausea/Vom/Diarrhea morphine Allergy (Verified 10/26/18 11:01) Hives nitrofurantoin [From Macrobid] Allergy (Verified 10/26/18 11:01) Hives nitrofurantoin macrocrystalline [From Macrobid] Allergy (Verified 10/26/18 11:01) Hives norgestimate [From Ortho Tri-Cyclen (28)] Allergy (Verified 10/26/18 11:01) Hives oxycodone [Oxycodone] Allergy (Verified 10/26/18 11:01) Hives oxycodone HCl [From OxyContin] Allergy (Verified 10/26/18 11:01) Hives Sulfa (Sulfonamide Antibiotics) Allergy (Verified 10/26/18 11:01) Hives Medications to take at Discharge Vits [Prenatabs FA ] 1 tablet PO DAILY 10/24/18 Labetalol [Trandate (Beta Yudy)] 100 mg PO BID 30 Days #60 tablet 10/28/18 Oxycodone [Oxyir] 5 - 10 mg PO Q4H PRN PRN 7 Days #30 tab 10/28/18 The following prescriptions were given: Oxycodone [Oxyir] 5 - 10 mg PO Q4H PRN PRN 7 Days #30 tab PRN Reason: Mod-Severe Pain (4-09/05) Labetalol [Trandate (Beta Yudy)] 100 mg PO BID 30 Days #60 tablet Follow-Up: Call to make an appointment with your doctor for BP check in 3 days, an incision check in 1-2 weeks. You will also need a 6 week post- follow up appointment. Test results from this visit will be discussed in further detail at your follow-up appointment, if applicable. Please Follow Up With: Elena Allen MD Primary Care Physician: Kiet Fagan DO [Primary Care Provider] -
--- NOTE | 2018-10-28 11:21 | DCINST_ITS ---
Discharge Diet: No Restrictions Discharge Activity: May not drive while taking narcotic pain medications., May Shower May resume sexual activity in: 4-6 weeks Weight Bearing Status: Full weight bearing Lifting Restrictions: less than 20lbs Call your doctor if your incision/area has: Continuous Slow Oozing, Sudden Increased Bleeding, Increased Pain/ Swelling, Increased Redness, Foul Smelling Discharge, Swelling at the incision site Call your doctor if you observe: Fever of 101 or Higher, Coldness, Increased Pain, Inability to urinate, Inability to have a bowel movement, Using more than one pad per hour, Shortness of breath, Chest pain, Increased palpitations (irregular heartbeat), Calf discomfort, Uncontrolled pain Remove Dressing in (days):: 5 Instructions: After a Additional Instructions: If you experience any of the following, contact your healthcare provider. * Bleeding that soaks a pad every hour for 2 hours * Fever 100.4 or higher * Unrelieved incision or abdominal pain * Swelling, redness, discharge or bleeding from your incision or episiotomy site * Your incision begins to separate * Problems urinating (including inability to urinate or burning while urinating). * Visual changes * Severe headache * Flu-like symptoms * Pain or redness in one of both of your breasts * Pain, warmth, tenderness or swelling in your legs, especially the calf area * Frequent nausea and vomiting * Symptoms of depression or anxiety If you experience any of the following, call 911 or go to the nearest Emergency Room. * Chest pain * Problems breathing * Seizure activity * Partial or complete paralysis of a body part, slurred speech, weakness or drooping of the face, or a sudden inability to walk or hold your balance Allergies/Adverse Reactions: Allergies acetaminophen [From Tylenol] Allergy (Verified 10/26/18 11:01) Shortness of breath ethinyl estradiol [From Ortho Tri-Cyclen (28)] Allergy (Verified 10/26/18 11:01) Hives meperidine HCl [From Demerol] Allergy (Verified 10/26/18 11:01) Hives milk Allergy (Verified 10/26/18 11:01) Nausea/Vom/Diarrhea morphine Allergy (Verified 10/26/18 11:01) Hives nitrofurantoin [From Macrobid] Allergy (Verified 10/26/18 11:01) Hives nitrofurantoin macrocrystalline [From Macrobid] Allergy (Verified 10/26/18 11:01) Hives norgestimate [From Ortho Tri-Cyclen (28)] Allergy (Verified 10/26/18 11:01) Hives oxycodone [Oxycodone] Allergy (Verified 10/26/18 11:01) Hives oxycodone HCl [From OxyContin] Allergy (Verified 10/26/18 11:01) Hives Sulfa (Sulfonamide Antibiotics) Allergy (Verified 10/26/18 11:01) Hives Medications to take at Discharge Vits [Prenatabs FA ] 1 tablet PO DAILY 10/24/18 Labetalol [Trandate (Beta Yudy)] 100 mg PO BID 30 Days #60 tablet 10/28/18 Oxycodone [Oxyir] 5 - 10 mg PO Q4H PRN PRN 7 Days #30 tab 10/28/18 The following prescriptions were given: Oxycodone [Oxyir] 5 - 10 mg PO Q4H PRN PRN 7 Days #30 tab PRN Reason: Mod-Severe Pain (4-09/05) Labetalol [Trandate (Beta Yudy)] 100 mg PO BID 30 Days #60 tablet Follow-Up: Call to make an appointment with your doctor for BP check in 3 days, an incision check in 1-2 weeks. You will also need a 6 week post- follow up appointment. Test results from this visit will be discussed in further detail at your follow- up appointment, if applicable. Please Follow Up With: Elena Allen MD Primary Care Physician: Kiet Fagan DO [Primary Care Provider] -
--- NOTE | 2018-10-28 11:22 | DS.PCM_ITS ---
Discharge Date and Diagnosis - Problem List Patient Problems: Active and Suspected Problems (Last Updated 10/24/18 @ 20:28 by Scarlet Nagy DO) Delivery by section for breech presentation (Acute) Hypertension affecting in third trimester (Acute) Loss of peripheral visual field (Acute) Preeclampsia, severe (Acute) Date of Admission: 10/26/18 Date of Discharge: 10/28/18 - Primary Discharge Diagnosis Active and Suspected Problems (Last Updated 10/24/18 @ 20:28 by Scarlet Nagy DO) Delivery by section for breech presentation (Acute) Hypertension affecting in third trimester (Acute) Loss of peripheral visual field (Acute) Preeclampsia, severe (Acute) Hospital Course and Treatment Operations: - - Section Summary of Care Provided: The patient is a 28 year old F [] Patient Problems: Active and Suspected Problems (Last Updated 10/24/18 @ 20:28 by Scarlet Nagy DO) Delivery by section for breech presentation (Acute) Hypertension affecting in third trimester (Acute) Loss of peripheral visual field (Acute) Preeclampsia, severe (Acute) - Physical Exam Vital Signs Temp Pulse Resp BP Pulse Ox 97.4 F L 69 18 150/88 H 97 10/28/18 08:22 10/28/18 11:17 10/28/18 08:22 10/28/18 11:17 10/28/18 08:22 Oxygen Delivery Method Room Air Weight: 233 lb 11.04 oz Body Mass Index (BMI) 40.1 Intake and Output for Last 24 Hours 10/26/18 10/27/18 10/28/18 23:59 23:59 23:59 Intake Total 1515 / 1515 1444 / 1444 Output Total 800 / 800 5200 / 5200 600 / 600 Balance 715 / 715 -3756 / -3756 -600 / -600 Microbiology Past 72 Hours 10/26/18 Unknown Group B Streptococcus Culture - Preliminary Genital vaginal Discharge Diet: No Restrictions Discharge Activity: May not drive while taking narcotic pain medications., May Shower May resume sexual activity in: 4-6 weeks Weight Bearing Status: Full weight bearing Call your doctor if your incision/area has: Continuous Slow Oozing, Sudden Increased Bleeding, Increased Pain/ Swelling, Increased Redness, Foul Smelling Discharge, Swelling at the incision site Call your doctor if you observe: Fever of 101 or Higher, Coldness, Increased Pain, Inability to urinate, Inability to have a bowel movement, Using more than one pad per hour, Shortness of breath, Chest pain, Increased palpitations (ir regular heartbeat), Calf discomfort, Uncontrolled pain Remove Dressing in (days):: 5 Home Medications: Medications to take at Discharge Vits [Prenatabs FA ] 1 tablet PO DAILY 10/24/18 Labetalol [Trandate (Beta Yudy)] 100 mg PO BID 30 Days #60 tablet 10/28/18 Oxycodone [Oxyir] 5 - 10 mg PO Q4H PRN PRN 7 Days #30 tab 10/28/18 Following Prescrptions Were Given to Patient: Oxycodone [Oxyir] 5 - 10 mg PO Q4H PRN PRN 7 Days #30 tab PRN Reason: Mod-Severe Pain (-09/05) Labetalol [Trandate (Beta Yudy)] 100 mg PO BID 30 Days #60 tablet Primary Care Physician: Kiet Fagan DO [Primary Care Provider] - Please Follow Up With: Elena Allen MD Patient Instructions: After a Medical Necessity - Tobacco Use Smoking Status: Never smoker Meaningful Use Info Meaningful Use Diagnoses (Choose all that apply): None applicable
[2018-10-28 13:00] VITALS: BP 144/89; PULSE 69; RESP 16; TEMP 36.2; O2SAT 98
--- NOTE | 2018-10-28 16:46 | PN.OBGYN_ITS ---
Patient Problems: Active and Suspected Problems (Last Updated 10/24/18 @ 20:28 by Scalret Nagy DO) Hypertension affecting in third trimester (Acute) Loss of peripheral visual field (Acute) Subjective: Pain well controlled, average lochia, patient denies headache, visual changes or epigastric pain. She denies chest pain or shortness of breath, she denies fevers or chills. She has been up and ambulating and working on pumping breast milk for the baby. - Physical Exam General: Alert, Cooperative, No apparent distress Abdomen: Soft, Non-Distended, Tender - Appropriate Extremities: Edema - Trace Skin: Incision - Bandages clean dry and intact Vital Signs Temp Pulse Resp BP Pulse Ox 97.1 F L 69 16 144/89 H 98 10/28/18 13:00 10/28/18 13:00 10/28/18 13:00 10/28/18 13:00 10/28/18 13:00 Oxygen Delivery Method Room Air Weight: 106 kg Body Mass Index (BMI) 40.1 Intake and Output for Last 24 Hours 10/26/18 10/27/18 10/28/18 23:59 23:59 23:59 Intake Total 1515 / 1515 1444 / 1444 Output Total 800 / 800 5200 / 5200 600 / 600 Balance 715 / 715 -3756 / -3756 -600 / -600 Microbiology Past 72 Hours 10/26/18 Unknown Group B Streptococcus Culture - Preliminary Genital vaginal Medical Necessity - Tobacco Use Smoking Status: Never smoker Assessment/Plan All Active Problems (Last Updated 10/24/18 @ 20:28 by Scarlet Nagy DO) Delivery by section for breech presentation (Acute) Headache (Acute) Hypertension affecting in third trimester (Acute) Loss of peripheral visual field (Acute) Preeclampsia, severe (Acute) Postoperative day #2 status post primary section for 34-week , breech presentation, preeclampsia with severe features. Patient is doing well. Blood pressures trended up overnight. They have stabilized with labetalol. Will discharge patient home on labetalol. Instruc doug her to monitor her blood pressures and call if they enter the severe range. Otherwise follow-up in the office in 2-3 days or as needed. Postoperative instructions reviewed with patient. Patient is comfortable with plan.
[2018-10-28 17:18] VITALS: BP 163/81; PULSE 63; RESP 18; TEMP 36.7; O2SAT 99
[2018-10-28 17:30] VITALS: BP 148/81
--- OUTSIDE RECORDS SUMMARY | 2018-12-21 06:47 | XMS RPT_ITS ---
:1990 Author Organization OHIP Care Team Providers Name Role Phone Sara Thakur Attending Unavailable Sara Thakur Referring Unavailable Kiet Fagan Primary Care Unavailable Scarlet Nagy Attending Unavailable Scarlet Nagy Referring Unavailable Kiet Fagan Primary Care Unavailable PROVIDER, ED PHYSICIAN Attending Unavailable Kiet Fagan Primary Care Unavailable Sara Thakur Referring Unavailable Kiet Fagan Primary Care Unavailable Alejandro, Dominick Admitting Unavailable Dominick Caldwell Attending Unavailable THAKUR, SARA (CNM) Attending Unavailable THAKUR, SARA (CNM) Referring Unavailable THAKUR, SARA (CNM) Referring Unavailable ERICKSON, JUAN A Referring Unavailable PRISCILLA MCMILLAN (RD) Attending Unavailable ERICKSON, JUAN A Referring Unavailable HAJA, MICHAEL (CNM) Attending Unavailable THAKUR, SARA (CNM) Attending Unavailable THAKUR, SARA (CNM) Referring Unavailable KELLEY, DAISHA A Attending Unavailable THAKUR, SARA (CNM) Referring Unavailable THAKUR, SARA (CNM) Attending Unavailable THAKUR, SARA (CNM) Referring Unavailable THAKUR, SARA (CNM) Attending Unavailable THAKUR, SARA (CNM) Referring Unavailable KELLEY, DAISHA A Attending Unavailable THAKUR, SARA (CNM) Referring Unavailable HAJA, MICHAEL (CNM) Attending Unavailable THAKUR, SARA (CNM) Referring Unavailable THAKUR, SARA (CNM) Attending Unavailable SUE CAMARGO (OIL WELL CABLE TOOL OPERATOR) Attending Unavailable THAKUR, SARA (CNM) Attending Unavailable THAKUR, SARA (CNM) Referring Unavailable THAKUR, SARA (CNM) Attending Unavailable THAKUR, SARA (CNM) Referring Unavailable NEYPORFIRIOT VENESSA VIDALESRE Attending Unavailable NEYHART ARANDAIDRE Referring Unavailable THAKUR, SARA (CNM) Attending Unavailable THAKUR, SARA (CNM) Attending Unavailable HAJA, MICHAEL (CNM) Attending Unavailable HAJA, MICHAEL (CNM) Attending Unavailable THAKUR, SARA (CNM) Attending Unavailable ERICKSON, JUAN A Attending Unavailable ERICKSON, JUAN A Referring Unavailable THAKUR, SARA (CNM) Attending Unavailable THAKUR, SARA (CNM) Attending Unavailable THAKUR, SARA (CNM) Referring Unavailable HAJA, MICHAEL (CNM) Attending Unavailable PROBLEMS PROBLEMS DATE TYPE CONDITION / CODE ATTENDING STATUS SOURCE 10/30/2018 Unknown O64.1XX0 - Alejandro, Active [place] Obstructed labor [facility] due to breech Hospital presentation, not Repository applicable or unspecified / O64.1XX0(ICD-10) 10/30/2018 Unknown R51 - Headache / Thakur, Sara Active [place] R51(ICD-10) [facility] [place] 09/13/2018 Active 28 weeks NA Active [facility] gestation of [place] / Repository Z3A.28(ICD-10) 09/13/2018 Active Dizziness and NA Active [facility] giddiness / [place] R42(ICD-10) Repository 09/12/2018 Active 27 weeks NA Active [facility] gestation of [place] / Repository Z3A.27(ICD-10) 09/12/2018 Active Other specified NA Active [facility] related [place] conditions, third Repository trimester / O26.893(ICD-10) 09/12/2018 Active Headache / NA Active [facility] R51(ICD-10) [place] Repository 08/30/2018 Active 26 weeks NA Active [facility] gestation of [place] / Repository Z3A.26(ICD-10) 05/10/2018 Active 10 weeks SARA THAKUR Active [facility] gestation of (CNM) [place] / Repository Z3A.10(ICD-10) 04/19/2018 Active Supervision of NA Active [facility] high risk [place] , Repository unspecified, first trimester / O09.91(ICD-10) 01/05/2018 Active Threatened NA Active [facility] / [place] O20.0(ICD-10) Repository 01/05/2018 Active Unknown / SARA THAKUR Active [facility] UNK(Unknown) ([facility]) [place] Repository PROCEDURES PROCEDURES No Procedure Records FoundRESULTS RESULTS PROGRESS Observed: 11/09/2018 Status: COMPLETED Source: [place] 9:40 AM [facility] REPOSITORY HNO ID: [id number] Author: Michael ValdesJil Smyth Service: (none) Author Type: Carbide Operator Type: Progress Notes Filed: 11/09/2018 3:18 PM [...] Dominick Caldwell M.D.. Delivered in what hospital? [facility] Lochia: [place], Normal depression/mood: None Breast/bottle: Pumping. [...] APRN.CNM CNOV Observed: 11/09/2018 Status: COMPLETED Source: [place] 9:30 AM [facility] REPOSITORY Office Visit (WOOB) KARISSA DE LEON ([id number]) 1990 F Date Time Provider Department 11/09/18 [...] Dominick Caldwell M.D.. Delivered in what hospital? [facility] Lochia: [place], Normal depression/mood: None Breast/bottle: Pumping. [...] 11/09/18 PROGRESS Observed: 10/31/2018 Status: COMPLETED Source: [place] 10:41 AM [facility] REPOSITORY O ID: [id number] Author: Sara Thakur Service: (none) Author Type: Carbide Operator Type: Progress Notes Filed: 10/31/2018 12:21 PM Note Text: SUBJECTIVE: 28 year old female presents for 5 day visit for BP check. Baby is in the NICU at [facility]. Outcome: PCS. Date delivered: 10/26/2018. Delivering M.D.: Dominick Caldwell M.D.. Delivered in what hospital? [facility] Lochia: [place], Normal depression/mood: None Breast/bottle: Breast [...] and surgical history, medications and allergies. Sara Thakur APRN.CNM CNOV Observed: 10/31/2018 Status: COMPLETED Source: [place] 10:30 AM [facility] REPOSITORY Office Visit (WOOB) KARISSA DE LEON ([id number]) 1990 F Date Time Provider Department 10/31/18 10:30 AM SARA THAKUR (ANAHI) WOOB During your visit today, we recorded the following information about you: Blood pressure Weight 142/92 99.8 kg Sara Thakur APRN.CNM 10/31/2018 12:21 PM Signed SUBJECTIVE: 28 year old female presents for 5 day visit for BP check. Baby is in the NICU at [facility]. Outcome: PCS. Date delivered: 10/26/2018. Delivering M.D.: Dominick Caldwell M.D.. Delivered in what hospital? [facility] Lochia: [place], Normal depression/mood: None Breast/bottle: Breast [...] and surgical history, medications and allergies. Sara Thakur APRN.ANAHI Referring Provider: SARA THAKUR ([facility]) [[id number]] Allergies As of Date: 10/31/2018 Noted Allergy [...] Disposition History Recorded Encounter Status:Closed by SARA THAKUR on 10/31/18 PROGRESS Observed: 10/30/2018 Status: COMPLETED Source: [place] 2:48 PM [facility]IN [place] REPOSITORY HNO ID: [id number] Author: Yamilka Parra LPN Service: (none) Author Type: (none) Type: Progress Notes Filed: 10/30/2018 2:54 PM Note Text: Pt delivered via C/S at [facility] on 10/26/[address] Caldwell and CHIKI. See OB Outcome note. Pt has post op appt 10/31/18. Yamilka Parra LPN HOSP Observed: 10/30/2018 Status: COMPLETED Source: [place] 12:00 AM [facility] REPOSITORY Patient Update (WOOB) KARISSA DE LEON ([id number]) 1990 F Date Time Provider Department 10/30/18 DOMINICK CALDWELL During your visit today, we recorded the following information about you: Yamilka Parra LPN 10/30/2018 2:54 PM Signed Pt delivered via C/S at [facility] on 10/26/[address] Newell. See [...] 10/28/2018 Status: F Source: [place] 11:22 AM [facility] REPOSITORY [facility] Medical Records Department [address] [place] [address] Discharge Summary 10/28/18 1121 MR#: [id number] Acct: [id number] Name: KARISSA DE LEON Rep #: [id number] : 1990 28 From: Sara Thakur CNM PCP: Kiet Fagan DO Status: ADM IN Location: [id number] Discharge Date and Diagnosis - Problem List [...] (Last Updated 10/24/18 @ 20:28 by Scarlet Nayg DO) Delivery by section for breech presentation [...] applicable 10/28/18 1122 <Electronically signed by Sara Thakur CNM> Date Sara Thakur CNM Cosigner Signature (if applicable): Date CC: ANAHI Fagan DO Signed DISCHARGE INSTRUCTION Observed: 10/28/2018 Status: F Source: [place] 11:21 AM [facility] REPOSITORY [facility] Medical Records Department [address] [place] [address] Instructions for Home/Discharge Instructions 10/28/18 1118 MR#: [id number] Acct: [id number] Name: KARISSA DE LEON Rep #: [id number] : 1990 28 From: Sara Thakur CNM PCP: Kiet Fagan DO Status: ADM [...] - 10/28/18 1121 <Electronically signed by Sara Thakur CNM> Date Sara Thakur [facility] CC: Kiet Fagan DO CBC-COMPLETE BLOOD CNT Collected: 10/27/2018 Status: F Source: [place] NO DIFF 5:15 AM [facility] REPOSITORY Order Comment: Comments: Day #1 Reason [...] MPV 11.4 Performed By: #### L100.0500 #### [facility] [address] [place], [address] OPERATIVE REPORT Observed: 10/26/2018 Status: F Source: [place] 7:42 PM [facility] REPOSITORY [facility] Medical Records Department [address] [place] [address] Operative Report 10/26/18 1937 MR#: [id number] Acct: [id number] Name: KARISSA DE LEON Rep #: [id number] : 1990 28 From: Dominick Caldwell MD PCP: Kiet Fagan DO Status: ADM IN Location: [id number] Delivery Classification: DAVID Final SNEHA: 12/06/18 Gestational age: 34 Weeks and 1 Days Indications for : Breech, - - Preeclampsia with severe features Description of Procedure: Preoperative diagnosis: 34-week intrauterine , breech presentation, preeclampsia with severe features Postoperative diagnoses: Same Surgeon: Dominick Caldwell MD Yarn Spooler:Iman MONET Anesthesia- Spinal- Iman Grossman MD complications- [...] MD> Date Dominick Caldwell MD CC: ANAHI Thakur; Kiet Fagan DO; Dominick Caldwell MD Signed HISTORY AND PHYSICAL Observed: 10/26/2018 Status: F Source: [place] EXAM 6:26 PM [facility] REPOSITORY [facility] Medical Records Department [address] [place] [address] History and Physical 10/26/18 1816 MR#: [id number] Acct: [id number] Name: KARISSA DE LEON Rep #: [id number] : 1990 28 From: Dominick Caldwell MD PCP: Kiet Fagan DO Status: ADM IN Y Location: [id number] History Date of Admission: 10/26/18 Final SNEHA: [...] GeLabor LenAnesthesiDelivery Provider FOB Date ght nder [facility] a Location Review of Systems Constitutional: Denies: [...] BLOOD CNT Collected: 10/26/2018 Status: F Source: [place] NO DIFF 4:49 PM [facility] REPOSITORY TYPE CODE TESTS RESULT OUT OF [...] MPV 11.7 Performed By: #### L100.0500 #### [facility] [address] [place], [place], [address] GROUP B STREP DNA Collected: 10/26/2018 Status: F Source: [place] BY PCR 3:55 PM [facility] REPOSITORY TYPE CODE TESTS RESULT OUT OF RANGE REFERENCE UNITS LAB L8200.0100 Negative Normal GBS TEST Negative RESULT Performed By: #### L8200.0000 #### [facility] [address] [facility] [place], [address] TYPE AND SCREEN Collected: 10/26/2018 Status: F Source: [place] 2:10 PM [facility] REPOSITORY Order Comment: Reason for Type AND Screen/Red Cells: ROUTINE TYPE CODE TESTS RESULT OUT OF RANGE REFERENCE UNITS LAB B10.0800 A Normal BLOOD TYPE GEL POSITIVE LAB B100.4000 Normal Antibody NEGATIVE Screen Performed By: #### B101.7450 #### [facility] [address] [facility] [place], [place], [address] BRAIN/HEAD WITHOUT Observed: 10/26/2018 Status: F Source: [place] CONTRAST 1:47 PM [facility] REPOSITORY [facility] Imaging Services [address] [place] [address] Brain/Head without Contrast MR#: [id number] Acct: [id number] Name: KARISSA DE LEON Rep #: [id number] : 1990 F 28 From: Jerilyn Pérez MD PCP: Kiet Fagan DO Status: ADM IN Study: Brain/Head without Contrast Date of Exam: 10/26/18 Exam# [id number] Ordering Dr: Dominick Caldwell MD STUDY: CT [...] Pérez MD at 17:14 EST Tel Direct: [phone], Service support , CC: Kiet Fagan DO; Dominick Caldwell MD Consulting Actuary: Signed CBC-COMPLETE BLOOD CNT Collected: 10/26/2018 Status: F Source: [place] NO DIFF 12:25 PM [facility] REPOSITORY TYPE CODE TESTS RESULT OUT OF [...] #### L100.0500, L501.1105, L501.1400, L501.4100, L501.4405 #### [facility] [address] [place], [address] SERUM CREATININE AND Collected: 10/26/2018 Status: F Source: [place] GFR 12:25 PM [facility] REPOSITORY TYPE CODE TESTS RESULT OUT OF [...] #### L100.0500, L501.1105, L501.1400, L501.4100, L501.4405 #### [facility] [address] [place], [place], [id number] URIC ACID Collected: 10/26/2018 Status: F Source: [place] 12:25 PM [facility] REPOSITORY TYPE CODE TESTS RESULT OUT OF RANGE REFERENCE UNITS LAB L501.1400 2.6-6.0 mg/dL Normal URIC 3.8 Result Comment: The drugs N-Acetylcysteine and Metamizole may falsely depress this assay. Performed By: #### L100.0500, L501.1105, L501.1400, L501.4100, L501.4405 #### [facility] [address] [place], [place], [id number] AST(SGOT) Collected: 10/26/2018 Status: F Source: [place] 12:25 PM [facility] REPOSITORY TYPE CODE TESTS RESULT OUT OF RANGE REFERENCE UNITS LAB L501.4100 15-37 U/L Normal AST 18 Performed By: #### L100.0500, L501.1105, L501.1400, L501.4100, L501.4405 #### [facility] [address] [place], [address] ALANINE AMINOTRANSFERAS Collected: 10/26/2018 Status: F Source: [place] (SGPT) 12:25 PM [facility] REPOSITORY TYPE CODE TESTS RESULT OUT OF RANGE REFERENCE UNITS LAB L501.4405 13-56 U/L Normal ALT 19 Performed By: #### L100.0500, L501.1105, L501.1400, L501.4100, L501.4405 #### [facility] [address] [place], [address] PROTHROMBIN TIME W/INR Collected: 10/26/2018 Status: F Source: [place] 12:25 PM [facility] REPOSITORY TYPE CODE TESTS RESULT OUT OF RANGE REFERENCE UNITS LAB L300.4150 11.7-14.9 SECONDS Normal PROTIME 12.8 LAB L300.4200 Normal INR 1.0 Performed By: #### L300.3900, L300.4310 #### [facility] [address] [place], [address] PARTIAL THROMBOPLAST Collected: 10/26/2018 Status: F Source: [place] TIME 12:25 PM [facility] REPOSITORY TYPE CODE TESTS RESULT OUT OF RANGE REFERENCE UNITS LAB L300.4310 24.1-36.2 Seconds Normal PTT 24.8 Performed By: #### L300.3900, L300.4310 #### [facility] [address] [place], [address] PROTEIN+CREATININE Collected: Status: F Source: [place] RATIO,URINE 10/26/2018 12:17 PM [facility] REPOSITORY TYPE CODE TESTS RESULT OUT OF RANGE REFERENCE UNITS LAB L501.1200 NO RANGE EST. mg/dL Normal UR CREAT 30.30 LAB L501.1930 <11.9 mg/dL Normal 7.3 PROTEIN,UR.R AN. LAB L501.1940 0-200 mg/g CRE High PROT:CRE 241 RATIO Performed By: #### L501.0900 #### [facility] [address] [place], [address] Observed: 10/26/2018 Status: F Source: [place] CULTURE, GROUP B 12:00 AM [facility] STREPTOCOCCUS REPOSITORY RUBEN Culture Group B Beta Streptococcus is not isolated. Performed By: #### M100.1800 #### [facility] [address] [place], [address] PROTEIN, URINE 24HR Collected: 10/25/2018 Status: F Source: [place] 12:02 PM [facility] REPOSITORY TYPE CODE TESTS RESULT OUT OF RANGE REFERENCE UNITS LAB L501.1850 24.0 HOURS 24.0 Normal UR COLLECT TIME LAB L501.1875 mL 4100 Normal UR TOTAL VOLUME LAB L501.1900 <11.9 mg/dL < 6.0 Normal URINE PROTEIN LAB L501.1925 <150 MG/24HR mg/24HR Test Normal 24hr UR not performed PROTEIN Performed By: #### L500.9000, L502.000 #### [facility] [address] [facility] [id number] 24 HR URINE CREATININE Collected: 10/25/2018 Status: F Source: [place] 12:02 PM [facility] REPOSITORY TYPE CODE TESTS RESULT OUT OF RANGE REFERENCE UNITS LAB L502.0100 24.0 HOURS Normal UR COLLECT 24.0 TIME LAB L502.0200 L Normal UR TOTAL 4.10 VOLUME LAB L502.0300 NO RANGE EST. mg/dL Normal URINE CREAT 35.60 LAB L502.0400 0.70-1.90 g/24 HR Normal UR.CREAT/24hr 1.46 Performed By: #### L500.9000, L502.000 #### [facility] [address] [facility] [address] PROTEIN+CREATININE Collected: Status: F Source: [place] RATIO,URINE 10/24/2018 11:15 AM [facility] REPOSITORY TYPE CODE TESTS RESULT OUT OF RANGE REFERENCE UNITS LAB L501.1200 NO RANGE EST. mg/dL Normal UR CREAT 36.70 LAB L501.1930 <11.9 mg/dL Normal 6.6 PROTEIN,UR.R AN. LAB L501.1940 0-200 mg/g CRE Normal PROT:CRE 180 RATIO Performed By: #### L501.0900 #### [facility] [address] [facility] [address] CBC-COMPLETE BLOOD CNT Collected: 10/24/2018 Status: F Source: [place] NO DIFF 10:50 AM [facility] REPOSITORY TYPE CODE TESTS RESULT OUT OF [...] MPV 11.8 Performed By: #### L100.0500 #### [facility] [address] [place], [place], [id number] SERUM CREATININE AND Collected: 10/24/2018 Status: F Source: [place] GFR 10:50 AM [facility] REPOSITORY TYPE CODE TESTS RESULT OUT OF [...] L501.1105, L501.1400, L501.4100, L501.4405, L300.3900, L300.4310 #### [facility] [address] [place], [place], [id number] URIC ACID Collected: 10/24/2018 Status: F Source: [place] 10:50 AM [facility] REPOSITORY TYPE CODE TESTS RESULT OUT OF RANGE REFERENCE UNITS LAB L501.1400 2.6-6.0 mg/dL Normal URIC 4.0 Result Comment: The drugs N-Acetylcysteine and Metamizole may falsely depress this assay. Performed By: #### L501.1105, L501.1400, L501.4100, L501.4405, L300.3900, L300.4310 #### [facility] [address] [place], [address] AST(SGOT) Collected: 10/24/2018 Status: F Source: [place] 10:50 AM [facility] REPOSITORY TYPE CODE TESTS RESULT OUT OF RANGE REFERENCE UNITS LAB L501.4100 15-37 U/L Normal AST 15 Performed By: #### L501.1105, L501.1400, L501.4100, L501.4405, L300.3900, L300.4310 #### [facility] [address] [place], [place], [id number] ALANINE AMINOTRANSFERAS Collected: 10/24/2018 Status: F Source: [place] (SGPT) 10:50 AM [facility] REPOSITORY TYPE CODE TESTS RESULT OUT OF RANGE REFERENCE UNITS LAB L501.4405 13-56 U/L Normal ALT 16 Performed By: #### L501.1105, L501.1400, L501.4100, L501.4405, L300.3900, L300.4310 #### [facility] [address] [place], [place], [address] PROTHROMBIN TIME W/INR Collected: 10/24/2018 Status: F Source: [place] 10:50 AM [facility] REPOSITORY TYPE CODE TESTS RESULT OUT OF RANGE REFERENCE UNITS LAB L300.4150 11.7-14.9 SECONDS Normal PROTIME 12.9 LAB L300.4200 Normal INR 1.0 Performed By: #### L501.1105, L501.1400, L501.4100, L501.4405, L300.3900, L300.4310 #### [facility] [address] [place], [place], [id number] PARTIAL THROMBOPLAST Collected: 10/24/2018 Status: F Source: [place] TIME 10:50 AM [facility] REPOSITORY TYPE CODE TESTS RESULT OUT OF RANGE REFERENCE UNITS LAB L300.4310 24.1-36.2 Seconds Normal PTT 26.6 Performed By: #### L501.1105, L501.1400, L501.4100, L501.4405, L300.3900, L300.4310 #### [place] [facility] [address] [place], [address] PROGRESS Observed: 10/15/2018 Status: COMPLETED Source: [place] 3:54 PM [facility] REPOSITORY HNO ID: [id number] Author: Juan Almendarez Service: (none) Author Type: [...] (PROBIOTIC BLEND ORAL) Take by mouth. vit 64-fyeh-aqnpf-dha ( + DHA) 28 mg iron- 975 [...] MD CNOV Observed: 10/15/2018 Status: COMPLETED Source: [place] 3:40 PM [facility] REPOSITORY Office Visit (FAMPWS) KARISSA DE LEON ([id number]) 1990 F Date Time Provider Department 10/15/18 [...] (PROBIOTIC BLEND ORAL) Take by mouth. vit 28-hklj-llrtu-dha ( + DHA) 28 mg iron- 975 [...] Juan Almendarez MD Referring Provider: JUAN ALMENDAREZ [[id number]] Allergies As of Date: 10/15/2018 Noted Allergy [...] 10/15/18 PROGRESS Observed: 09/13/2018 Status: COMPLETED Source: [place] 4:31 PM [facility] [place] REPOSITORY HNO ID: [id number] Author: Candace Vidales Service: (none) Author Type: [...] COMPLEX 1 ORAL) Take by mouth. vit 35-sjlx-gxwpp-dha ( + DHA) 28 mg iron- 975 [...] METABOLIC PANL Collected: 09/13/2018 Status: F Source: [place] 3:38 PM [facility] MAIN CAMPUS REPOSITORY TYPE CODE TESTS RESULT OUT OF REFERENCE UNITS RANGE LAB GLU 74-99 mg/dL Glucose 80 Result Comment: The [place] [employer] (ADA) provides guidance for cutoff [...] Standards of Medical Care in Diabetes 2016, [place] [employer]. Diabetes Care. 2016.39(Suppl 1). LAB [...] actual GFR. Performed By: #### BMP #### [facility] [address] [place], [place] [address] PROGRESS Observed: 09/13/2018 Status: COMPLETED Source: [place] 3:20 PM [facility] MAIN [facility]AMP[facility] REPOSITORY HNO ID: [id number] Author: Monique Owens Ma Service: (none) Author Type: (none) Type: Progress Notes Filed: 09/13/2018 4:37 PM Note Text: 28 year old female here for INACTIVATED INFLUENZA VACCINE. 5328-2898 Season Patient is identified by name and date of : Yes [] CONTRAINDICATIONS color enhanced section Age less than 6 months? No Allergy to eggs, chicken, chicken feathers, or chicken dander? No Allergy to thimerosal (a preservative) or formaldehyde, gelatin? No History of severe reaction to any vaccine component or a previous dose of influenza vaccination? 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 Yes See immunization activity in [facility] for details of immunizations adminstered today. Patient age: [age] year old For The 4731-9986 Flu Season 6-35 months old: Fluzone 0.25 [...] time. PROTEIN/CREATININE RATIO Collected: Status: F Source: [place] 09/12/2018 10:45 AM [facility] REPOSITORY TYPE CODE TESTS RESULT OUT OF REFERENCE UNITS RANGE LAB UTPR 0-20 mg/dL Protein Urine 6 Random LAB UCRR 20-300 mg/dL Creatinine,Ur 67.0 ine,Ran LAB PCRAT <0.2 Protein/Creat 0.1 inine Ratio Performed By: #### SUSAN #### [facility] [address] [place], [place] [address] CBC Collected: 09/12/2018 Status: F Source: [place] 10:43 AM [facility] REPOSITORY TYPE CODE TESTS RESULT OUT OF [...] URIC #### [facility] [address] [place], [place] [address] COMP METABOLIC PANEL Collected: 09/12/2018 Status: F Source: [place] 10:43 AM [facility] REPOSITORY TYPE [...] mg/dL Low Glucose 61 Result Comment: The [place] [employer] (ADA) provides guidance for cutoff [...] Standards of Medical Care in Diabetes 2016, [place] [employer]. Diabetes Care. 2016.39(Suppl 1). LAB [...] has been calibrated to be traceable to IDMT. An eGFR <60 mL/min/1.73m2 for >3 months is consistent with chronic kidney disease. Refer to KDOQI guidelines for clinical interpretation. In patients with unstable renal function, e.g. those with acute kidney injury, the eGFR may not accurately reflect actual GFR. Performed By: #### CBC, CMP, URIC #### [facility] [address] [place], [place] [address] URIC ACID Collected: 09/12/2018 Status: F Source: [place] 10:43 AM [facility] REPOSITORY TYPE CODE TESTS RESULT OUT OF RANGE REFERENCE UNITS LAB URIC 2.5-6.6 mg/dL Uric Acid 4.0 Performed By: #### CBC, CMP, URIC #### [facility] [address] [place], [place] [address] CBC AND DIFFERENTIAL Collected: 08/30/2018 Status: F Source: [place] 11:00 AM [facility] CENTER REPOSITORY TYPE CODE TESTS RESULT OUT OF [...] k/uL Abs Lymph 1.72 LAB AMONO % Mag[place]in% 5.4 LAB AAMONO <0.87 k/uL Abs Mag[place]in 0.62 LAB AEOS % Eosin% 2.6 LAB AAEOS <0.46 k/uL Abs Eosin 0.30 LAB ABASO % Baso% 0.3 LAB AABASO <0.11 k/uL Abs Baso 0.03 LAB AUNRBC 0 /100 WBC NRBCs 0.0 LAB ABNRBC <0.01 k/uL Absolute nRBC <0.01 LAB DTYP DTYPE Auto Diff Performed By: #### CBCDIF #### [facility] [address] [place], [place] [address] 50G, 1HR GEST. Collected: 08/30/2018 Status: F Source: [place] GSCRN 11:00 AM [facility] REPOSITORY TYPE CODE TESTS RESULT OUT OF REFERENCE UNITS RANGE LAB GLUP 74-134 mg/dL Glucose 127 Screen, Preg Result Comment: [place] Congress of Obstetricians and Gynecologists (Green/Coustan) guidelines state a gestational diabetes mellitus positive screen is made, in women not previously diagnosed with overt diabetes, when the 1 hr plasma glucose level is equal to or above 140 mg/dL. The [facility] Telephone Answering Service Operator and [facility] recommends a 135 mg/dL cutoff. Performed By: #### GLTGST #### [facility] [address] [place], [place] [address] PROGRESS Observed: 08/28/2018 Status: COMPLETED Source: [place] 2:53 PM [facility] REPOSITORY HNO ID: [id number] Author: Sue (Garment Sorter) Podlogar Service: (none) Author Type: Nurse Practitioner [...] sooner if worsening of symptoms Sue Camargo APRN.OIL WELL CABLE TOOL OPERATOR Prescription instructions reviewed with patient as applicable. Patient advised if symptoms do not improve or if symptoms worsen sooner, to contact their primary care physician. Potential red flag symptoms discussed with the patient. Reviewed appropriate action plan to take if red flag symptoms occur. Patient agreeable to treatment plan. CNSILVIANO Observed: 08/28/2018 Status: COMPLETED Source: [place] 2:40 PM [facility] KARISSA DE LEON ([id number]) 1990 F Date Time Provider Department 08/28/18 2:40 PM SUE CAMARGO (OIL WELL CABLE TOOL OPERATOR) [facility] During your visit today, we recorded [...] sooner if worsening of symptoms Sue Sellerslogar, PERSONAL ASSISTANT.OIL WELL CABLE TOOL OPERATOR Prescription instructions reviewed with patient as applicable. Patient advised if symptoms do not improve or if symptoms worsen sooner, to contact their primary care physician. Potential red flag symptoms discussed with the patient. Reviewed appropriate action plan to take if red flag symptoms occur. Patient agreeable to treatment plan. Sue Camargo, PERSONAL ASSISTANT.OIL WELL CABLE TOOL OPERATOR 08/28/2018 3:01 PM Signed Use nasal saline, [...] Date Reviewed: 08/28/2018 Reviewed by: Anel Grubbs (Agricultural Education Professor) ROBER Reyes - Fully Assessed Reason for [...] Letter Text Department of Family Medicine [address] [address] 08/28/2018 Karissa De Leon CCF# [id number] [address] [place] [address] TO WHOM IT MAY CONCERN: This is to confirm that Karissa De Leon had an appointment and was seen at the [facility] in the Department of Internal Medicine by Sue Camargo APRN.CNP on 08/28/2018. Sincerely yours, Electronically Signed Sue Camargo APRN.CNP Encounter Status:Closed by SUE CAMARGO CNP on 08/28/18 PROGRESS Observed: 07/05/2018 Status: COMPLETED Source: [place] 10:42 AM [facility] REPOSITORY HNO ID: [id number] Author: Daisha Kelley Service: (none) Author Type: [...] indicated PROGRESS Observed: 04/26/2018 Status: COMPLETED Source: [place] 3:31 PM [facility] REPOSITORY HNO ID: [id number] Author: Yamilka Wu Service: (none) Author Type: (none) Type: Progress Notes Filed: 04/26/2018 3:31 PM Note Text: pap logged, letter sent. Yamilka L Gedney Psr PROGRESS Observed: 04/24/2018 Status: COMPLETED Source: [place] 11:00 AM [facility] REPOSITORY HNO ID: [id number] Author: Daisha Kelley Service: (none) Author Type: [...] 1HR GEST. Collected: 04/19/2018 Status: F Source: [place] GSCRN 10:15 AM [facility] REPOSITORY TYPE CODE TESTS RESULT OUT OF REFERENCE UNITS RANGE LAB GLUP 74-134 mg/dL Glucose 83 Screen, Preg Result Comment: [place] Congress of Obstetricians and Gynecologists (Green/Coustan) guidelines state a gestational diabetes mellitus positive screen is made, in women not previously diagnosed with overt diabetes, when the 1 hr plasma glucose level is equal to or above 140 mg/dL. The [facility] Telephone Answering Service Operator and [facility] recommends a 135 mg/dL cutoff. Performed By: #### GLTGST #### [facility] [address] [place] [address] CBC Collected: 04/19/2018 Status: F Source: [place] 10:15 AM [facility] REPOSITORY TYPE CODE TESTS RESULT OUT OF [...] #### CBC, RUBIGG, SYPHGX, HBSAG, HIV12C #### [facility] [address] [address] RUBELLA IGG ANTIBODY Collected: 04/19/2018 Status: F Source: [place] 10:15 AM [facility] REPOSITORY TYPE CODE TESTS RESULT OUT OF [...] #### CBC, RUBIGG, SYPHGX, HBSAG, HIV12C #### [place] [address] SYPHILIS IGG WITH Collected: 04/19/2018 Status: F Source: [facility] 10:15 AM [facility] REPOSITORY TYPE CODE TESTS RESULT OUT OF [...] #### CBC, RUBIGG, SYPHGX, HBSAG, HIV12C #### [address] [place] [address] HEPATITIS B SURF. AG Collected: 04/19/2018 Status: F Source: [place] 10:15 AM [facility] REPOSITORY TYPE CODE TESTS RESULT OUT OF REFERENCE UNITS RANGE LAB HBSAG Negative Hepatitis B Negative Surf. Ag Performed By: #### CBC, RUBIGG, SYPHGX, HBSAG, HIV12C #### [address] [place] [address] HIV 12 COMBO (AG/AB) Collected: 04/19/2018 Status: F Source: [place] 10:15 AM [facility] REPOSITORY TYPE CODE TESTS RESULT OUT OF REFERENCE UNITS RANGE LAB HVAGAB Non Reactive HIV Non Reactive 12 Ag/Ab Result Comment: (NOTE) HIV Information: [place] Rev. Code 3701.243(E): This information has been [...] #### CBC, RUBIGG, SYPHGX, HBSAG, HIV12C #### [place] [address] TYPE AND SCR,PRENATL Collected: 04/19/2018 Status: F Source: [place] 10:15 AM [facility] REPOSITORY TYPE CODE TESTS RESULT OUT OF REFERENCE UNITS RANGE LAB %ABR A ABO/RH(D) POSITIVE LAB % Antibody NEG Screen Performed By: #### TSPN #### [place] [address] TOXICOLOGY SCREEN,UR Collected: 04/19/2018 Status: F Source: [place] 10:15 AM [facility] REPOSITORY TYPE CODE TESTS RESULT OUT OF [...] the same speci men through Client Services ([phone]) if contacted within 48 hours of initial testing. [1]Substance Abuse and Mental Health Services Administration (2012). Clinical Drug Testing in Primary Care Technical Assistance Publication Series 32. Department of Health and Human Services, [place], p.10. These tests were developed and their performance characteristics determined by [facility]'s [facility] ( [facility]). They have not been cleared or a pproved by the FDA. [facility] is regulated under CLIA as qualified to perform high complexity testing. These tests are used for clinical purposes. They should not be regarded as investigational or for research. Performed By: #### UTOX2 #### [facility] [address] [place], [place] [address] CYTOLOGY Observed: 04/19/2018 Status: F Source: [place] 9:57 AM [facility] REPOSITORY Specimen originated from [facility] Specimen #: [id number] Submitting Physician: SARA THAKUR CNM SPECIMEN SUBMITTED A: CERVICAL, SCREENING, FLUID FINAL DIAGNOSIS A. CERVICAL, SCREENING, FLUID Satisfactory for interpretation. No endocervical component. Negative for intraepithelial lesion or malignancy. This specimen has been analyzed by the CompStak Imaging System, an automated imaging and review system, which assists the laboratory in evaluating cells on ThinPrep Pap tests. Following automated imaging, selected miramontes from every slide are reviewed by a direct marketing intern. 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 The Pap Smear is a screening test for cervical cancer. False negative results occur with all screening tests, emphasizing the need for rescreening at recommended intervals, and clinical correlation. GC/CHLAMYDIA AMPLIF Collected: 04/19/2018 Status: F Source: [place] 9:30 AM [facility] REPOSITORY TYPE CODE TESTS RESULT OUT OF REFERENCE UNITS RANGE LAB GCCTSR GC/Chlam Amp Cervix Source LAB GCAMPL GC Negative Amplification for Neisseria gonorrhoeae by amplification. LAB CLAMPL Chlamydia Negative Amplif for Chlamydia trachomatis by amplification. Performed By: #### GCCT #### [facility] [address] [place] [address] PROGRESS Observed: 04/19/2018 Status: COMPLETED Source: [place] 9:10 AM [facility] REPOSITORY HNO ID: [id number] Author: Sara Thakur Service: (none) Author Type: Carbide Operator Type: Progress Notes Filed: 04/19/2018 12:25 PM Note Text: Stock Transfer Clerk offered: Patient declines. 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 No Marital Status: Partner: Name: Tamir De Leon Age: 27 Occupation: [employer] Gender: male History of STDs: None PAST [...] COMPLEX 1 ORAL) Take by mouth. vit 00-mtqx-umvuk-dha ( + DHA) 28 mg iron- 975 [...] Plan to rescreen early third trimester. Sara Thakur APRN.CNM Observed: 04/12/2018 Status: F Source: [place] URINE CULTURE 3:44 AM [facility] REPOSITORY Sp. Request/Comment: - Specimen received in preservative Culture Result - No growth (<1,000 CFU/ml) Performed By: #### URCUL #### [facility] [address] [place], [place] [address] PROGRESS Observed: 04/05/2018 Status: COMPLETED Source: [place] 9:05 AM [facility] REPOSITORY HNO ID: [id number] Author: Neto Villarreal RN Service: (none) Author [...] None CNNURSE Observed: 04/05/2018 Status: COMPLETED Source: [place] 8:00 AM [facility] REPOSITORY Nurse Visit ([facility]OOB) KARISSA DE LEON ([id number]) 1990 F Date Time Provider Department 04/05/18 8:00 AM NURSE PNOB [facility] WSTR WOOB During your visit today, [...] It will require an appointment with our microbiological lab technician. This is not an ultrasound performed [...] the above symptoms, contact our office at [phone] and ask to speak with a nurse. After hours, you can call [facility] at [phone] OR call [facility] at [phone] and ask to have the doctor pellet preparation operator paged. If you consider this an emergency, [...] treatment is particularly effective in young patients-the [facility] reports a 70 percent [...] issues. What do the experts say? The [place] [employer] encourages philanthropic blood banking [...] baby needs at the moment. The nurse, rollway man, or physician will then label the samples, [...] AHEAD OF TIME! Public cord-blood jj--DONATION: [employer] [phone] [facility]'s Placental Blood Program, [facility] Umbilical Cord Blood Bank, Private cord-blood jj--SAVING FOR YOUR OWN USE: [employer], (I think this is the least expensive) [employer] [phone] [employer], ([phone]) [employer] [place] Cord Blood Bank, [phone] Cells, [phone] [place] [facility], Cord Blood Registry, [phone]) CORDBLOOD [employer], An Internet search may provide [...] requested diagnostic testing [Z01.89] Order(s):NICOLASA PT ED 3RD PRESSMAN [] Order #: [id number]: 1 FUTURE NICOLASA PT ED 3RD PRESSMAN [] Order #: [id number]: 1 FUTURE NICOLASA PT ED ANESTHESIA [[id number]] Order #: [id number]: 1 FUTURE NICOLASA PT ED 3RD PRESSMAN [] Order #: [id number]: 1 FUTURE NICOLASA WHAT TO EXPECT DURING YOUR HOSPITAL STAY [] Order #: [id number]: 1 FUTURE NICOLASA PT ED 3RD PRESSMAN [] Order #: [id number]: 1 FUTURE NICOLASA PT ED 3RD PRESSMAN [] Order #: [id number]: 1 FUTURE NICOLASA PT ED 3RD PRESSMAN [] Order #: [id number]. #:[id number]: 1 NICOLASA PT ED 3RD PRESSMAN [] Order #: [id number]. #:[id number]: 1 NICOLASA PT ED ANESTHESIA [[id number]] Order #: [id number]. #:[id number]: 1 NICOLASA PT ED 3RD PRESSMAN [] Order #: [id number]. #:[id number]: 1 NICOLASA WHAT TO EXPECT DURING YOUR HOSPITAL STAY [] Order #: [id number]. #:[id number]: 1 NICOLASA PT ED 3RD PRESSMAN [] Order #: [id number]. #:[id number]: 1 NICOLASA PT ED 3RD PRESSMAN [] Order #: [id number]. #:[id number]: 1 Prescriptions as of 04/05/2018 Sig: PROBIOTIC [...] 04/05/2018 8:11 AM >> NETO VILLARREAL RN [facility] April 05, 2018 8:11 AM Has not used in 5-6 years COMPOUNDED PRESCRIPTION >> Neto Villarreal RN 04/05/2018 8:12 AM >> NETO VILLARREAL RN [facility] April 05, 2018 8:12 AM Pt no [...] It will require an appointment with our microbiological lab technician. This is not an ultrasound performed [...] the above symptoms, contact our office at [phone] and ask to speak with a nurse. After hours, you can call doctors registry at [phone] OR call [facility] at [phone] and ask to have the doctor pellet preparation operator paged. If you consider this an emergency, [...] is particularly effective in young patients- the [facility] reports a 70 percent [...] issues. What do the experts say? The [place] [employer] Pediatric[employer] encourages philanthropic blood banking [...] baby needs at the moment. The nurse, rollway man, or physician will then label the samples, [...] AHEAD OF TIME! Public cord-blood jj--DONATION: [employer] [phone] [facility] Placental Blood Program, [facility] Umbilical Cord Blood Bank, Private cord-blood jj--SAVING FOR YOUR OWN USE: [employer], (I think this is the least expensive) [employer] [phone] [employer], ([phone]) [employer] [place] Cord Blood [facility], [phone] Cells, [phone] [place] Cry[facility], Cord Blood Registry, [phone]) CORDBLOOD [employer], An Internet search may provide you with additional listings. Disposition: Return in 2 weeks (on 04/19/2018) for New OB with Sara Abdirizak. Follow-up and Disposition History Recorded Encounter Status:Closed by NETO VILLARREAL RN on 04/05/18 PROGRESS Observed: 02/26/2018 Status: COMPLETED Source: [place] 1:16 PM [facility] REPOSITORY HNO ID: [id number] Author: Priscilla Mcmillan Service: (none) Author Type: [...] cereals 5. Consider tracking intake aiming for 3173-7780 40% carb, 30%fat and 30% protein 6. If able aim for some cardio most days, discuss medication options of asthma with provider CHANGES IN TREATMENT: Patient met goal(s): Yes Actions to implement interventions: Tracking on keto diet Will start walking More active around the house Diet History: Breakfast - shake-fruit, swedish yogurt, almond milk, protein powder; on weekends [...] ORAL) Take by mouth. Disp: Rfl: vit 70-uvbj-jwhnc-dha ( + DHA) 28 mg iron- 975 mcg-200 mg cmpk Take 1 tablet by mouth once daily. Disp: 30 Each Rfl: 11 albuterol (PROVENTIL) 2.5 mg/0.5 mL nebulizer solution Every 4-6 hours for wheeze/prn Disp: 50 Vial Rfl: 0 benzonatate (TESSALON PERLE) 100 mg capsule Take 1 capsule by mouth three times daily as needed for Cough. Disp: 30 capsule Rfl: 0 rizatriptan (MAXALT-DRAWER IN DOBBY LOOM) 10 mg disintegrating tablet Take 1 tablet [...] cereals 5. Consider tracking intake aiming for 1123-6092 40% carb, 30%fat and 30% protein Nutrition Monitoring AND Evaluation: Weight loss Criteria: patient update Need for Follow up: 6 weeks Referred/Supervised by: Justino BOLAÑOS Billing Type: Re-assess/15 min 2 units SIGNATURE: Priscilla Mcmillan MS RD LD PATIENT NAME: Karissa De Leon DATE: February 26, 2018 TIME: 1:16 PM CNCNPATED Observed: 02/26/2018 Status: COMPLETED Source: [place] 1:15 PM [facility] REPOSITORY Education (NUTRWS) KARISSA DE LEON ([id number]) 1990 F Date Time Provider Department 02/26/18 [...] cereals 5. Consider tracking intake aiming for 8404-0831 40% carb, 30%fat and 30% protein 6. If able aim for some cardio most days, discuss medication options of asthma with provider CHANGES IN TREATMENT: Patient met goal(s): Yes Actions to implement interventions: Tracking on keto diet Will start walking More active around the house Diet History: Breakfast - shake-fruit, swedish yogurt, almond milk, protein powder; on weekends [...] ORAL) Take by mouth. Disp: Rfl: vit 01-ksar-bcuqd-dha ( + DHA) 28 mg iron- 975 mcg-200 mg cmpk Take 1 tablet by mouth once daily. Disp: 30 Each Rfl: 11 albuterol (PROVENTIL) 2.5 mg/0.5 mL nebulizer solution Every 4-6 hours for wheeze/prn Disp: 50 Vial Rfl: 0 benzonatate (TESSALON PERLE) 100 mg capsule Take 1 capsule by mouth three times daily as needed for Cough. Disp: 30 capsule Rfl: 0 rizatriptan (MAXALT-DRAWER IN DOBBY LOOM) 10 mg disintegrating tablet Take 1 tablet [...] cereals 5. 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 Disp: Rfl: vit 62-fdpq-kjnon-dha ( + DHA) 28 mg iron- 975 mcg-200 mg cmpk Take 1 tablet by mouth once daily. Disp: 30 Each Rfl: 11 albuterol (PROVENTIL) 2.5 mg/0.5 mL nebulizer solution Every 4-6 hours for wheeze/prn Disp: 50 Vial Rfl: 0 benzonatate (TESSALON PERLE) 100 mg capsule Take 1 capsule by mouth three times daily as needed for Cough. Disp: 30 capsule Rfl: 0 rizatriptan (MAXALT-DRAWER IN DOBBY LOOM) 10 mg disintegrating tablet Take 1 tablet [...] no hunger has history of bulimia in [facility] . Exercise less than recommended and generally [...] cereals 5. Consider tracking intake aiming for 0582-2164 40% carb, 30%fat and 30% protein 6. If able aim for some cardio most days, discuss medication options of asthma with provider Nutrition Monitoring AND Evaluation: 1-2 pound weightloss per week Criteria: patient update Need for Follow up: 4-6 weeks Referred/Supervised by: Erikcson/Abner BOLAÑOS Billing Type: Initial Assess/15 min 3 [...] cereals 5. Consider tracking intake aiming for 3594-1528 40% carb, 30%fat and 30% protein 6. [...] cereals 5. Consider tracking intake aiming for 1989-0623 40% carb, 30%fat and 30% protein 6. [...] Breath Date Reviewed: 01/05/2018 Reviewed by: Sara ([facility]) Abdirizak - Fully Assessed Prescriptions as of [...] 01/29/18 PROGRESS Observed: 01/29/2018 Status: COMPLETED Source: [place] 1:14 PM [facility] REPOSITORY HNO ID: [id number] Author: Priscilla (Ale) Hipolito Service: (none) Author [...] ORAL) Take by mouth. Disp: Rfl: vit 81-vmli-ewwtb-dha ( + DHA) 28 mg iron- 975 mcg-200 mg cmpk Take 1 tablet by mouth once daily. Disp: 30 Each Rfl: 11 albuterol (PROVENTIL) 2.5 mg/0.5 mL nebulizer solution Every 4-6 hours for wheeze/prn Disp: 50 Vial Rfl: 0 benzonatate (TESSALON PERLE) 100 mg capsule Take 1 capsule by mouth three times daily as needed for Cough. Disp: 30 capsule Rfl: 0 rizatriptan (MAXALT-DRAWER IN DOBBY LOOM) 10 mg disintegrating tablet Take 1 tablet [...] cereals 5. Consider tracking intake aiming for 9556-8180 40% carb, 30%fat and 30% protein 6. [...] QUANTITATIVE BL Collected: 01/08/2018 Status: F Source: [place] 9:22 AM CLINIC MAIN CAMPUS REPOSITORY TYPE CODE TESTS RESULT OUT OF REFERENCE UNITS RANGE LAB HCGQT <5.0 mU/mL HCG, Quantitative Bl 0.3 Result Comment: NEGATIVE Performed By: #### HCGQT #### [facility] [address] [address] HCG, QUANTITATIVE BL Collected: 01/05/2018 Status: F Source: [place] 11:19 AM [facility] REPOSITORY TYPE CODE TESTS RESULT OUT OF REFERENCE UNITS RANGE LAB HCGQT <5.0 mU/mL HCG, Quantitative Bl 2.8 Result Comment: NEGATIVE Performed By: #### HCGQT #### [address] [address] Observed: 01/05/2018 Status: F Source: [place] URINE CULTURE 10:59 AM [facility] REPOSITORY Sp. Request/Comment: - Specimen received in preservative Culture Result - No growth (<1,000 CFU/ml) Performed By: #### URCUL #### [place] [address] PROGRESS Observed: 01/05/2018 Status: COMPLETED Source: [place] 10:35 AM [facility] REPOSITORY HNO ID: [id number] Author: Sara Thakur Service: (none) Author Type: Carbide Operator Type: Progress Notes Filed: 01/05/2018 11:35 AM [...] children: Occupational History Occupation Employer Comment [employer] Social History Main Topics Smoking status: Never Smoker Smokeless status: Current User Types: Chew Alcohol use: Yes Comment: seldom 1 per 6 months Drug use: No Sexual activity: Yes Partners with: Male control/protection: Condom Current Outpatient Prescriptions: VITAMIN B COMPLEX (B COMPLEX 1 ORAL) Take by mouth. rizatriptan (MAXALT-DRAWER IN DOBBY LOOM) 10 mg disintegrating tablet Take 1 tablet [...] external genitalia normal, normal Bartholin's glands, urethra, [place]'s glands, no vulvar lesions, no cervical lesions, [...] QUAL UR B/O - URINE CULTURE Sara Thakur CNM ALLERGIES ALLERGIES DATE TYPE / NAME / CODE REACTION SEVERITY SOURCE CODE 10/26/2018 Drug meperidine Hives Unknown [place] Allergy/41 HCl/[id number](RXNOR Community [id number]([facility]) Repository 10/26/2018 Drug oxycodone Hives Unknown [place] Allergy/41 HCl/[id number](RXNOR Community [id number]) Repository 10/26/2018 Drug nitrofurantoin Hives Unknown [place] Allergy/41 macrocrystalline/F00 Community [id number]( [id number](RXNO) [facility]) Repository 10/26/2018 Drug Sulfa (Sulfonamide Hives Unknown [place] Allergy/41 Antibiotics)/[id number] Community [id number]([facility](RXNORM) [facility]) Repository 10/26/2018 Drug ethinyl Hives Unknown [place] Allergy/41 estradiol/[id number] Community [id number]( (RXNORM) [facility]) Repository 10/26/2018 Drug morphine/[id number]( Hives Unknown [place] Allergy/41 RXNORM) Community [id number]([facility]) Repository 10/26/2018 Drug oxycodone/[id number] Hives Unknown [place] Allergy/41 (RXNORM) Community [id number]([facility]) Repository 10/26/2018 Drug acetaminophen/Z86054 Shortness of Unknown [place] Allergy/41 1605(RXNORM) breath Community [id number]([facility]) Repository 10/26/2018 Drug nitrofurantoin/F0060 Hives Unknown [place] Allergy/41 44135(RXNORM) Community 6723101([facility]) Repository 10/26/2018 Drug norgestimate/Q752691 Hives Unknown [place] Allergy/41 529(RXNORM) Community 7139486([facility] Hospital) Repository 10/26/2018 Drug milk/[id number](RXNO Nausea/Vom/Diar Unknown [place] [facility]/41 RM) [facility] [id number]( Hospital OMED CT) Repository 05/18/2015 DRUG SUMATRIPTAN OTHER: SEE C [facility] INGREDI/[address] [place] 8704147(SN Repository OMED CT) 05/18/2015 DRUG SUMATRIPTAN OTHER: SEE C [facility] [place] [id number](SN Repository OMED CT) 07/25/2012 DRUG LATEX RASH Med [facility] INGREDI[address] [place] 1868511(SN Repository OMED CT) 07/25/2012 DRUG LATEX RASH [facility] INGREDI41 [address] [place] 5714797(SN Repository OMED CT) 06/12/2012 DRUG/81864 NITROFURANTOIN HIVES [facility] 1003(SNOME MONOHYD/M-CRYST [address] [place] D CT) Repository 06/12/2012 [facility] [place] [address] [address] [place] 0482636(SN Repository OMED CT) 06/12/2012 DRUG/25169 ORTHO TRI-CYCLEN [facility] 1003(SNOME (21) [address] [place] D CT) Repository 06/12/2012 DRUG OXYCODONE HIVES [facility] INGREDI41 [address] [place] 0019562(SN Repository OMED CT) 06/12/2012 Drug SULFA (SULFONAMIDE HIVES [facility] Class/4195 ANTIBIOTICS) [address] [place] [address](SNOM Repository ED CT) 06/12/2012 Food/07652 MILK GI UPSET Low [facility] 1000(SNOME [address] [place] D CT) Repository 06/12/2012 DRUG AMOXICILLIN HIVES [facility] INGREDI/[address] [place] 8288426(SN Repository OMED CT) 06/12/2012 DRUG/65895 MEPERIDINE (PF) HIVES [facility] 1003(SNOME [address] [place] D CT) Repository 06/12/2012 [facility]UG [facility]ILLIN [facility] INGREDI41 [address] [place] 8708524(SN Repository OMED CT) 06/12/2012 DRUG/34816 MEPERIDINE (PF) [facility] 1003(SNOME [address] [place] D CT) Repository 06/12/2012 DRUG/62104 NITROFURANTOIN [facility] 1003(SNOME MONOHYD/M-CRYST [address] [place] D CT) Repository 06/12/2012 Food/96817 MILK GI UPSET [facility] 1000(SNOME [address] [place] D CT) Repository 06/12/2012 DRUG MORPHINE HIVES [facility]/[address] [place] 8178691(SN Repository OMED CT) 06/12/2012 DRUG/00399 ORTHO TRI-CYCLEN HIVES [facility] 1003(SNOME (21) [address] [place] D CT) Repository 06/12/2012 DRUG OXYCODONE HIVES [facility]/ [address] [place] 0726265(SN Repository OMED CT) 06/12/2012 Drug SULFA (SULFONAMIDE HIVES [facility] Class/4195 ANTIBIOTICS) [address] [place] [address](SNOM Repository ED CT) 06/12/2012 DRUG ACETAMINOPHEN [facility]/ [address] [place] 8221945(SN Repository OMED CT) ENCOUNTERS ENCOUNTERS ADMIT/DISCHARGE ACCOUNT ADMITTING ENCOUNTER LOCATION SOURCE NUMBER CLASS 11/09/2018/11/13/20 [id number] Ambulatory [address] Repository 10/31/2018/11/01/20 [id number] Ambulatory [address] Repository 10/26/2018/10/28/20 [id number] Alejandro, Inpatient [address] ing:WPRoom: Repository HU289Anf: 1 10/26/2018 [id number] [facility] ing:ED Repository 10/25/2018 [id number] [facility] ing:LABSPEC Repository 10/24/2018/10/26/20 [id number] Ambulatory [address] Repository 10/24/2018/10/24/[id number] ing:WPOUTRoom Repository : [id number] 10/15/2018/10/16/20 [id number] Ambulatory [address] Repository 10/15/2018/10/16/20 [id number] Ambulatory [address] Repository 10/10/2018/10/12/20 [id number] Ambulatory [address] Repository 10/04/2018/10/05/20 [id number] Ambulatory [address] [place] Repository 09/28/2018/10/02/20 [id number] Ambulatory [facility] [address] [place] Repository 09/21/2018/09/27/20 [id number] Ambulatory [facility] [address] [place] Repository 09/13/2018/09/14/20 [id number] Amb[facility] [address] [place] Repository 09/13/2018/09/13/20 [id number] Ambulatory [facility] [address] [place] Repository 09/12/2018/09/12/20 [id number] Ambulatory [facility] [address] [place] Repository 09/12/2018/09/13/20 [id number] Ambulatory [facility] [address] [place] Repository 08/30/2018/08/30/20 [id number] Ambulatory [facility] [address] [place] Repository 08/30/2018/08/31/20 [id number] Ambulatory [facility] [address] [place] Repository 08/28/2018/08/29/20 [id number] Ambulatory [facility] [address] [place] Repository 08/03/2018/08/06/20 [id number] Ambulatory [facility] [address] [place] Repository 07/05/2018/07/05/20 [id number] Ambulatory [facility] [address] [place] Repository 07/05/2018/07/06/20 [id number] Ambulatory [facility] [address] [place] Repository 06/06/2018/06/08/20 [id number] Ambulatory [facility] [address] [place] Repository 05/10/2018/05/14/20 [id number] Ambulatory [facility] [address] [place] Repository 04/24/2018/04/26/20 [id number] Ambulatory [facility] [address] [place] Repository 04/19/2018/04/19/20 [id number] Ambulatory [facility] [address] [place] Repository 04/19/2018/04/19/20 [id number] Ambulatory [facility] [address] [place] Repository 04/12/2018/04/16/20 [id number] Ambulatory [facility] [address] [place] Repository 04/05/2018/04/09/20 [id number] Ambulatory [facility] [address] [place] Repository 02/26/2018/02/29/20 [id number] Ambulatory [facility] [address] [place] Repository 01/29/2018/01/31/20 [id number] Ambulatory [facility] [address] [place] Repository 01/08/2018/01/08/20 [id number] Ambulatory [facility] [address] [place] Repository 01/05/2018/02/09 [id number] Ambulatory [address] Repository 01/05/2018/01/05/[id number] Repository PAYERS PAYERS ENCOUNTER GUARANTOR PAYER SUBSCRIBER SOURCE 10/26/2018 KARISSA Swann Primary TAMIR R [place] [id number] ARMINDA Insurance:MEDICAL STARNERDOB: [facility] [id number], Number: [place]ository [place] [id number]: [id number] Date:1682-70-49PS [address] () [address] [address]NB: 10/26/2018 Secondary NOT GIVENUNK [place] Insurance:SELF PAY [facility] Number: Effective Repository Date:2018-10-26 10/26/2018 KARISSA Swann Primary TAMIR R [place] [id number] ARMINDA Insurance:MEDICAL STARNERDOB: [facility] [id number], Number: [place]ository [place] [address]Esb: [id number] Date:7190-82-55SY [address] () [address] [address]YR: 10/26/2018 Secondary NOT GIVENUNK [place] Insurance:SELF PAY [facility] Number: Effective Repository Date:2018-10-26 10/25/2018 KARISSA Swann Primary TAMIR R [place] [id number] ARMINDA Insurance:MEDICAL STARNERDOB: [facility] [id number], Number: [place]ository [place] [id number]: [id number] Date:3109-03-60SB [address] () [address] [address]NW: 10/25/2018 Secondary NOT GIVENUNK [place] Insurance:SELF PAY [facility] Number: Effective Repository Date:2018-10-25 10/24/2018 KARISSA Swann Primary TAMIR R [place] [id number] ARMINDA Insurance:MEDICAL STARNERDOB: [facility] [id number], Number: [place]ository [place] [id number]: [id number] Date:9363-48-54JY BOX (OR) [address] [address]DV: 10/24/2018 Secondary NOT GIVENUNK [place] Insurance:SELF PAY [facility] Number: Effective Repository Date:2018-10-24
== END 2018-10-28 19:12 | disposition home or self-care (01) | DRG 787 ==
LOC: WPOUT 13:39
PROVIDERS: Admitting Provider Obstetrics & Gynecology; Family Provider Pediatrics; PCP Pediatrics; Referring Provider Advanced Practice Midwife; Visit Provider Obstetrics & Gynecology
DX: O64.1XX0 Obstructed labor due to breech presentation, not applicable or unspecified (principal); O99.12 Other diseases of the blood and blood-forming organs and certain disorders involving the immune mechanism complicating childbirth; O14.14 Severe pre-eclampsia complicating childbirth; Z3A.34 34 weeks gestation of pregnancy; Z37.0 Single live birth; D69.6 Thrombocytopenia, unspecified; O69.81X0 Labor and delivery complicated by cord around neck, without compression, not applicable or unspecified
CPT/HCPCS: 59025; 59050; 70450; 82565; 82570; 84156; 84450; 84460; 84550; 85027; 85610; 85730; 86850; 86900; 87081; 87653; 99218; J7120; A4216; G0378; J0702; J2405

== ENCOUNTER 2023-05-08 09:34 | Emergency (ER) | payer OTHER, SELFPAY ==
[2023-05-08] VITALS (10 sets, daily range): BP systolic 151–170; BP diastolic 98–117; PULSE 76–113; RESP 12–39; TEMP 36.4; O2SAT 96–100; BMI 35.9
--- NOTE | 2023-05-08 09:43 | EX.ED.DYSGE1 ---
HPI History of Present Illness Chief Complaint: Asthma [facility] Medical History Anxiety Asthma Delivery by section for breech presentation Depression Essential hypertension Headache Hypertension Hypertension affecting in third trimester Loss of peripheral visual field Migraines Preeclampsia, severe Scarlet fever TMJ (dislocation of temporomandibular joint) Home Medications Saccharomyces boulardii 250 mg capsule (Daily Probiotic (S. boulardii)) 250 mg PO BID 09/07/21 [History Last Taken Unknown] fluticasone propionate 50 mcg/actuation nasal spray,suspension (Allergy Relief (fluticasone)) 2 spray intranasal DAILY 09/07/21 [History Last Taken Unknown] nifedipine 90 mg tablet,extended release 90 mg PO DAILY 09/07/21 [History Last Taken Unknown] propranolol 20 mg tablet 20 mg PO DAILY 09/07/21 [History Last Taken Unknown] rizatriptan 10 mg disintegrating tablet See Rx Instructions PO .COMPLEX 09/07/21 [History Last Taken Unknown] Allergy/AdvReac Type Severity Reaction Status Date / Time amoxicillin Allergy Unknown Hives Verified 05/08/23 09:37 Latex, Natural Rubber Allergy Unknown Rash Verified 05/08/23 09:37 acetaminophen [From Tylenol] Allergy Shortness Verified 05/08/23 09:37 of breath ethinyl estradiol Allergy Hives Verified 05/08/23 09:37 [From Ortho Tri-Cyclen (28)] meperidine HCl [From Demerol] Allergy Hives Verified 05/08/23 09:37 milk Allergy Nausea/Vom/ Verified 05/08/23 09:37 Diarrhea morphine Allergy Hives Verified 05/08/23 09:37 nitrofurantoin Allergy Hives Verified 05/08/23 09:37 [From Macrobid] nitrofurantoin Allergy Hives Verified 05/08/23 09:37 macrocrystalline [From Macrobid] norgestimate Allergy Hives Verified 05/08/23 09:37 [From Ortho Tri-Cyclen (28)] oxycodone [Oxycodone] Allergy Hives Verified 05/08/23 09:37 oxycodone HCl Allergy Hives Verified 05/08/23 09:37 [From OxyContin] Sulfa (Sulfonamide Allergy Hives Verified 05/08/23 09:37 Antibiotics) sumatriptan [From Imitrex] AdvReac Unknown Unknown Verified 05/08/23 09:37 Family History (Updated 09/07/21 @ 09:07 by Jenny Yoder) Mother CAD (coronary artery disease), Onset Age: 40 Asthma CVA (cerebral vascular accident) Diabetes Grandfather Heart disease Surgical History H/O LEEP History of delivery History of dilatation and curettage Status post trigger finger release Social History (Updated 09/07/21 @ 09:08 by Jenny Yoder) Smoking Status: Never smoker Smokeless tobacco user: chewing tobacco alcohol intake: current details: occasional substance use type: does not use EXAM Physical Exam Const Vital Signs: 05/08/23 09:34 05/08/23 10:33 05/08/23 10:34 Temperature 97.5 F L Temperature Source Temporal Pulse Rate 113 H 81 Respiratory Rate 16 19 H Respiratory Effort Short of Breath Respiratory Depth Deep Respiratory Pattern Normal Blood Pressure 170/104 H 155/98 H Blood Pressure Mean 126 117 Pulse Ox 100 99 Oxygen Delivery Method Room Air Room Air Room Air 05/08/23 10:35 05/08/23 11:05 05/08/23 12:17 Temperature Temperature Source Pulse Rate 80 96 Respiratory Rate 19 H 35 H Respiratory Effort Respiratory Depth Respiratory Pattern Blood Pressure 160/112 H 164/112 H Blood Pressure Mean 128 129 Pulse Ox 99 99 100 Oxygen Delivery Method Room Air Room Air 05/08/23 13:10 05/08/23 14:03 Temperature Temperature Source Pulse Rate 99 83 Respiratory Rate 39 H 12 Respiratory Effort Respiratory Depth Respiratory Pattern Blood Pressure 158/117 H 158/112 H Blood Pressure Mean 130 127 Pulse Ox 100 100 Oxygen Delivery Method Room Air Room Air MDM MDM MDM Narrative Medical decision making narrative: HISTORY OF PRESENT ILLNESS: 32-year-old female here with shortness of breath. This occurred this morning. Symptoms been constant, severe without alleviating factors. Denies any bleeding diathesis, volume loss, note she has chest pain. Denies any ripping or tearing pain. Denies a history of aneurysms. The patient denies recent surgery in the last 4 weeks or immobilization in the last 3 days, denies previous diagnosis of DVT or PE, hemoptysis, unilateral leg swelling or malignancy with treatment the last 6 months. No estrogen use noted. REVIEW OF SYSTEMS: Pertinent positives: Shortness of breath chest pain Pertinent negatives: Syncope, headache, fever PHYSICAL EXAM: Nursing triage notes reviewed, Vital signs reviewed Constitutional: please see mdm HENT: MMM Eyes: Pupils equal round and reactive to light, Extraocular muscles intact Neck: No stridor, no JVD, full neck ROM Lungs: Clear to auscultation, No wheezing or rales. No increased work of breathing, no conversational dyspnea, no accessory muscle use, no nasal flaring. No respiratory distress noted Heart: Regular rate and rhythm, No murmurs, No rubs and No gallops, 2+ distal pulses (radial, femoral, posterior tibial) in all extremities Abdomen: Soft, there is no tenderness, rigidity, rebound or guarding, no obvious peritoneal signs, no palpable pulsatile abdominal masses, no auscultated abdominal bruit : No CVAT Extremities: No edema Neuro: No focal neurological deficits, cranial nerves II through XII intact, 5/5 strength in all extremities. Intact sensation to light touch in all extremities, 2+ reflexes bilateral patella tendons. Normal gait. No ataxia. Skin: No rash or lesions noted MEDICAL DECISION MAKING: Chief Complaint: Chest pain, shortness of breath External records reviewed: Last chest x-ray in 2015 is normal Factors affecting care: History of asthma, hypertension Social determinants of health: History depression, anxiety, Uses chewing tobacco History obtained from others: The patient's Consults: None ALL IMAGES (IF OBTAINED) HAVE BEEN PERSONALLY REVIEWED AND INTERPRETED BY MYSELF. [facility] Narrative: I considered the following differential diagnosis: Arrhythmia, anemia, myocardial schema, pneumonia, PE I considered PE given initial tachycardia chest pain and shortness of breath however the patient had no evidence of right heart strain, she had a low risk Wells score and as such there is no indication for advanced imaging or D-dimer at this time. Pain initial EKG was unremarkable for arrhythmia or myocardial ischemia. Labs remarkable for no evidence of myocardial ischemia and delta troponin, no significant anemia, electrolyte maladies, anion gap, signs of heart failure. Chest x-ray that evidence of pneumonia. Patient ambulated out of hypoxia. No clear life-limiting etiology could be ascertained. May be suffering from a mild asthma exacerbation which is worsened by anxiety. The patient and/or family, caregivers express understanding. The patient and/or family, caregivers agrees with the plan. Total critical care time today provided was at least 0 minutes. This excludes separately billable procedures. Critical care time (if documented) is secondary to the patient having high probability of clinically significant/life threatening deterioration in the patient's condition which required my urgent intervention. Shared decision making: I will have a discussion with the patient and or visitors regarding risk/benefits of further testing or admission. They will be made aware of of the risk/benefits inherent in this decision they will be given the opportunity to voice understanding. Lab Data Attestation: I reviewed the patient's lab results. Lab results narrative: EKG with normal sinus rhythm, normal axis, normal intervals, no STEMI CBC without leukocytosis, severe anemia, no thrombocytopenia. Troponin is negative, no evidence of myocardial ischemia, delta troponin negative BNP within normal limits, no evidence of volume overload, increased transmural wall pressure BMP with mild hypokalemia otherwise no significant electrolyte abnormalities, no anion gap to suggest endorgan hypoperfusion, no acute kidney Labs: Laboratory Results - last 24 hr 05/08/23 05/08/23 05/08/23 10:25 10:25 10:25 WBC 7.9 RBC 4.59 Hgb 14.6 Hct 43.7 MCV 95.2 MCH 31.8 MCHC 33.4 RDW Std Deviation 39.8 RDW Coeff of Teresa 11.5 L Plt Count 232 MPV 10.7 Immature Gran % (Auto) 0.400 Neut % (Auto) 63.2 Lymph % (Auto) 26.2 [place] % (Auto) 7.1 Eos % (Auto) 2.3 Baso % (Auto) 0.8 Absolute Neuts (auto) 5.0 Absolute Lymphs (auto) 2.07 Nucleated RBC % 0 Sodium 140 Potassium 3.3 L Chloride 107 Carbon Dioxide 24.0 Anion Gap 9 BUN 3 L Creatinine 0.85 Estim Creat Clear Calc 81.29 Est GFR (MDRD) Af Amer 99 Est GFR (MDRD) Non-Af 82 BUN/Creatinine Ratio 3.5 L Glucose 111 H Calcium 9.3 Troponin I High Sens < 3 L B-Natriuretic Peptide 40.3 05/08/23 12:47 WBC RBC Hgb Hct MCV MCH MCHC RDW Std Deviation RDW Coeff of Teresa Plt Count MPV Immature Gran % (Auto) Neut % (Auto) Lymph % (Auto) [place] % (Auto) Eos % (Auto) Baso % (Auto) Absolute Neuts (auto) Absolute Lymphs (auto) Nucleated RBC % Sodium Potassium Chloride Carbon Dioxide Anion Gap BUN Creatinine Estim Creat Clear Calc Est GFR (MDRD) Af Amer Est GFR (MDRD) Non-Af BUN/Creatinine Ratio Glucose Calcium Troponin I High Sens 5 B-Natriuretic Peptide Radiography Chest X-Ray - ED: Read by ED Physician Diagnostic Testing: Clinical Impression(s) from Imaging Studies Chest X-Ray 05/08/23 10:40 IMPRESSION: The lungs are clear. Mild degree of a dextroscoliosis. Electronically Signed: Juan Christopher MD at 11:02 EDT , I have personally reviewed the patient's chest x-ray. Chest x-ray is unremarkable for pulmonary edema, pneumothorax, pneumonia or focal cardiopulmonary abnormality. Discharge Plan Triage Chief Complaint: Asthma ED Provider: Jason Morales Dx/Rx/DC Orders Prescriptions: No Action nifedipine 90 mg tablet extended release 90 mg PO DAILY rizatriptan 10 mg tablet,disintegrating See Rx Instructions PO .COMPLEX Rx Instructions: take 1 tab at onset of headache; if no relief may repeat 1 tab after at least 2 hrs; max = 3 tabs/24 hr PO propranolol 20 mg tablet 20 mg PO DAILY fluticasone propionate [Allergy Relief (fluticasone)] 50 mcg/actuation spray,suspension 2 spray intranasal DAILY Rx Instructions: administer into each nostril Saccharomyces boulardii [Daily Probiotic (S. boulardii)] 250 mg capsule 250 mg PO BID Primary Care Provider: Juan Dalal Referrals: Juan Dalal MD [Primary Care Provider] -
--- NOTE | 2023-05-08 09:57 | EKG12_ITS ---
Test Reason : Blood Pressure : / mmHG Vent. Rate : 085 BPM Atrial Rate : 085 BPM P-R Int : 132 ms QRS Dur : 084 ms QT Int : 404 ms P-R-T Axes : 051 032 026 degrees QTc Int : 480 ms Normal sinus rhythm Abnormal ECG Confirmed by SARATH DAVISON, LAWANDA ([id number]), editorial manager JAYLENE ROJAS ([id number]) on 05/10/2023 12:18:09 PM Referred By: WILLARD Confirmed By:LAWANDA CLEMENS MD
[2023-05-08] MEDS: Aspirin 81 MG TAB.CHEW 324 MG PO (10:26)
[2023-05-08] MEDS: LORazepam 2 MG/ML Syringe 1 MG IV (10:27)
[2023-05-08] MEDS: 0.9% Normal Saline 1,000 ML 1000 ML IV (10:27)
--- NOTE | 2023-05-08 10:40 | RAD_ITS ---
STUDY: X-RAY CHEST REASON FOR EXAM: Female, 32 years old. Chest pain TECHNIQUE: Single AP portable view of the chest. COMPARISON: Comparison is made with prior study dated April 10, 2015. FINDINGS: EKG electrodes are seen. The lungs are clear and expanded. There is no demonstrated pleural abnormality. Normal size heart. Normal mediastinum and edenilson. Normal visualized pulmonary arteries. Normal visualized aortic arch and descending thoracic aorta. There is a mild dextroscoliosis of the thoracic spine. Normal visualized ribs, clavicles, and shoulders. There is no demonstrated abnormality of the visualized soft tissue structures of the upper abdomen. RAD/Chest 1 View (Portable) IMPRESSION: The lungs are clear. Mild degree of a dextroscoliosis. Electronically Signed: Juan Christopher MD at 11:02 EDT ,
[2023-05-08 10:44] LABS: Absolute Lymphocyte Count 2.07 X10^3/uL (0.83-4.51); Basophil# 0.06 X10^3/uL; Basophil% 0.8 % (0-1); Eosinophil# 0.18 X10^3/uL; Eosinophils% 2.3 % (0-5); Hematocrit 43.7 % (37-47); Hemoglobin 14.6 g/dL (12.0-15.0); Lymphocyte # 2.07 X10^3/ul (0.83-4.51); Lymphocyte % 26.2 % (19-41); Mean Corp Hgb Conc 33.4 g/dL (32-36); Mean Corpuscular Hgb 31.8 pg (27.0-32.0); Mean Corpuscular Volume 95.2 fL (81-99); Mean Platelet Vol. 10.7 fl (6.2-12.0); Monocyte# 0.56 X10^3/uL; Monocyte% 7.1 % (0-10); NRBC Flagged by Analyzer 0 % (0-5); Neutrophil % 63.2 % (47-70); Platelet Count 232 K/mm3 (150-450); RBC Distribution Width CV 11.5 % (11.6-14.6); RBC Distribution Width SD 39.8 fl (35.1-43.9); Red Blood Count 4.59 M/mm3 (4.2-5.4); White Blood Count 7.9 K/mm3 (4.4-11.0)
[2023-05-08 10:59] LABS: Anion Gap 9 (5-15); BUN 3 mg/dL (7-18); BUN/Creat Ratio 3.5 RATIO (10-20); Calcium,Total 9.3 mg/dL (8.5-10.1); Chloride 107 mmol/L (98-107); Creatinine, Serum 0.85 mg/dL (0.55-1.02); EST Glomerular Filtration Rate 82 mL/min (>60); Est Glom Filt Rate - Afr Amer 99 mL/min (>60); Estimated Creatinine Clearance 81.29 ml/min; Glucose 111 mg/dL (74-106); Potassium 3.3 mmol/L (3.5-5.1); Sodium Level 140 mmol/L (136-145); Troponin-I HS (w/2H Reflex) < 3 pg/mL (3.0-54.0)
[2023-05-08 11:06] LABS: BNP,B-Type NATRIURETIC PEPTIDE 40.3 pg/mL (0-100)
[2023-05-08 12:34] LABS: Reflex Troponin-HS? (from REC) Y
[2023-05-08 13:22] LABS: Troponin-I HS 5 pg/mL (3.0-54.0)
--- NOTE | 2023-05-08 14:43 | ED.RN ---
UPON DISCHARGE, PT STATES SHE STILL HAS QUESTIONS REGARDING RESULTS. THIS RN LET DR. ALCALA KNOW PT STILL HAD QUESTIONS. DR. ALCALA WENT INTO PT ROOM TO TALK TO PT. DR. ALCALA GOT PAGED TO THE DESK FOR A PHONE CALL. THIS RN ASKED PT IF SHE HAD ALL QUESTIONS ANSWERED THAT SHE WANTED. PT AND PT FAMILY MEMBER STATE NO HE GOT TAKEN AWAY FOR A PHONE CALL BUT WE ARE JUST GOING TO GO. THIS RN EDUCATED PT THAT DR. ALCALA WOULD BE BACK TO ANSWER QUESTIONS SOON HE GOT A CHANCE. PT AND PT FAMILY MEMBER REFUSED AND WALKED OUT OF ER.
== END 2023-05-08 14:47 | disposition home or self-care (01) ==
PROVIDERS: Emergency Provider Emergency Medicine; PCP Family Medicine; Visit Provider Emergency Medicine
DX: J45.909 Unspecified asthma, uncomplicated (principal); F41.9 Anxiety disorder, unspecified; I10 Essential (primary) hypertension; F17.220 Nicotine dependence, chewing tobacco, uncomplicated; Z79.51 Long term (current) use of inhaled steroids; Z79.899 Other long term (current) drug therapy; G43.909 Migraine, unspecified, not intractable, without status migrainosus
CPT/HCPCS: 71045; 80048; 83880; 84484; 85025; 93005; 96361; 96374; 99285; A4216

== ENCOUNTER → 2023-07-10 | Outpatient (CLI) | payer OTHER, SELFPAY | END | disposition home or self-care (01) | LOC: SL 13:33 | PROVIDERS: PCP Internal Medicine; Referring Provider Internal Medicine; Visit Provider Internal Medicine | DX: G47.10 Hypersomnia, unspecified (principal) | CPT/HCPCS: 95806 ==

== ENCOUNTER → 2024-06-06 | Outpatient (CLI) | payer OTHER, SELFPAY ==
[2024-06-06 15:20] LABS: Absolute Lymphocyte Count 2.28 X10^3/uL (0.83-4.51); Absolute Neutrophil Count 5.2 X10^3/uL (2.0-7.7); Basophil# 0.06 X10^3/uL; Basophil% 0.7 % (0-1); Eosinophil# 0.25 X10^3/uL; Eosinophils% 2.9 % (0-5); Hematocrit 45.9 % (37-47); Hemoglobin 14.9 g/dL (12.0-15.0); Lymphocyte # 2.28 X10^3/ul (0.83-4.51); Lymphocyte % 26.9 % (19-41); Mean Corp Hgb Conc 32.5 g/dL (32-36); Mean Corpuscular Volume 95.6 fL (81-99); Mean Platelet Vol. 11.8 fl (6.2-12.0); Monocyte# 0.67 X10^3/uL; Monocyte% 7.9 % (0-10); NRBC Flagged by Analyzer 0 % (0-5); Neutrophil # 5.18 X10^3/uL (2.7-7.7); Platelet Count 238 K/mm3 (150-450); RBC Distribution Width CV 12.1 % (11.6-14.6); RBC Distribution Width SD 42.7 fl (35.1-43.9); White Blood Count 8.5 K/mm3 (4.4-11.0)
[2024-06-06 15:46] LABS: ALB/GLOB Ratio 1.1 RATIO (0.9-2.4); AST(SGOT) 16 U/L (15-37); Alanine Aminotransfer ALT/SGPT 23 U/L (13-56); Albumin, Serum 3.9 g/dL (3.2-5.0); Alkaline Phosphatase 61 U/L (45-117); Anion Gap 5 (5-15); BUN 5 mg/dL (7-18); BUN/Creat Ratio 8.4 RATIO (10-20); Calcium,Total 9.2 mg/dL (8.5-10.1); Chloride 106 mmol/L (98-107); Creatinine, Serum 0.59 mg/dL (0.55-1.02); EST Glomerular Filtration Rate 123 mL/min (>60); Est Glom Filt Rate - Afr Amer 149 mL/min (>60); Globulin 3.7 g/dL (2.2-4.2); Glucose 88 mg/dL (74-106); Potassium 4.3 mmol/L (3.5-5.1); Protein, Total 7.6 g/dL (6.4-8.2); Sodium Level 136 mmol/L (136-145)
== END | disposition home or self-care (01) ==
LOC: BIMLAB 11:47
PROVIDERS: PCP Internal Medicine; Referring Provider Internal Medicine; Visit Provider Internal Medicine
DX: I10 Essential (primary) hypertension (principal)
CPT/HCPCS: 36415; 80053; 85025

== ENCOUNTER 2024-07-27 14:35 | Emergency (ER) | payer OTHER, SELFPAY ==
[2024-07-27 14:36] VITALS: BP 140/113; PULSE 103; RESP 16; TEMP 36.4; O2SAT 100; BMI 32.8
[2024-07-27 15:02] VITALS: BP 167/116; PULSE 83; RESP 16; O2SAT 100
[2024-07-27 15:53] VITALS: BP 156/107; PULSE 74; RESP 14; TEMP 36.5; O2SAT 99
--- NOTE | 2024-07-27 15:54 | EDS_ITS ---
HPI History of Present Illness Chief Complaint: Hypertension Informant: patient Onset/Context/Timing Onset: Days Context: Gradual Onset Timing: Continuous Current Severity: Mild Narrative Narrative: 34-year-old female treated for hypertension. Previously was on different medication after she went on vacation she got out of her normal routine that medication did not seem to be working. Recently was started on losartan on she took a and Monday has not taken yet today. Her blood pressures have been running around 160/117. Otherwise no significant complaints. Called her primary care physician's office today and they wanted to be evaluated. She had recent labs in middle May which were unremarkable with normal kidney function. She has had a long standing history of hypertension. Prior similar symptoms: Yes Recent Illness/Hospitalization: No PFSH PFSH Medical History Attention deficit hyperactivity disorder (ADHD) Major depressive disorder Left wrist fracture Chronic constipation Vision problems Polycystic ovaries History of urticaria History of breast lump History of back problems Family history of coronary artery disease TMJ (dislocation of temporomandibular joint) Scarlet fever Essential hypertension Delivery by section for breech presentation Preeclampsia, severe Loss of peripheral visual field Depression Asthma Anxiety Migraines Headache Home Medications ?Medication ?Instructions ?Recorded ?Last Taken ?Type fluticasone propionate 50 2 spray intranasal DAILY 09/07/21 Unknown History mcg/actuation nasal spray,suspension (Allergy Relief (fluticasone)) rizatriptan 10 mg disintegrating See Rx Instructions PO .COMPLEX PRN 05/16/23 Unknown History tablet nicotine 21 mg/24 hr daily 1 patch transdermal DAILY #28 ea 06/06/24 Unknown Rx transdermal patch rimegepant 75 mg disintegrating 75 mg PO Q OTHER DAY migraine 06/17/24 Unknown Rx tablet (Nurtec ODT) headache #15 tabs dextroamphetamine-amphetamine ER 15 mg PO DAILY 30 days #30 caps 07/24/24 07/27/24 Rx 15 mg 24hr capsule,extend release escitalopram oxalate 10 mg tablet 10 mg PO DAILY #90 tabs 07/24/24 07/27/24 Rx (Lexapro) losartan 25 mg tablet 25 mg PO DAILY #30 tabs 07/24/24 07/27/24 Rx Allergy/AdvReac Type Severity Reaction Status Date / Time amoxicillin Allergy Unknown Hives Verified 07/27/24 15:01 Latex, Natural Rubber Allergy Unknown Rash Verified 07/27/24 15:01 ethinyl estradiol (From Allergy Hives Verified 07/27/24 15:01 Ortho Tri-Cyclen (28)) meperidine HCl (From Demerol) Allergy Hives Verified 07/27/24 15:01 milk Allergy Nausea/Vom/ Verified 07/27/24 15:01 Diarrhea morphine Allergy Hives Verified 07/27/24 15:01 nitrofurantoin (From Allergy Hives Verified 07/27/24 15:01 Macrobid) nitrofurantoin Allergy Hives Verified 07/27/24 15:01 macrocrystalline (From Macrobid) norgestimate (From Ortho Allergy Hives Verified 07/27/24 15:01 Tri-Cyclen (28)) oxycodone (Oxycodone) Allergy Hives Verified 07/27/24 15:01 oxycodone HCl (From Allergy Hives Verified 07/27/24 15:01 OxyContin) Sulfa (Sulfonamide Allergy Hives Verified 07/27/24 15:01 Antibiotics) sumatriptan (From Imitrex) AdvReac Unknown Unknown Verified 07/27/24 15:01 Family History Mother CAD (coronary artery disease), Onset Age: 40 Asthma CVA (cerebral vascular accident) Diabetes Alcoholism Angina pectoris Anxiety Depression Myocardial infarction Hypertension High cholesterol Hormone disorder Psychiatric care Suicide attempt Multiple personality disorder Grandfather Heart disease Alcoholism Myocardial infarction Father Alcoholism Hypertension Sister Alcoholism Depression Prediabetes Daughter Asthma Uncle Liver disease Grandmother Melanoma Other Osteoporosis Surgical History H/O wisdom tooth extraction History of dilatation and curettage Status post trigger finger release History of delivery H/O LEEP Social History household members: family current occupational status: employed 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 Constitutional Constitutional ED: Denies fever(s) Eyes Eyes: Denies blurry vision ENT ENT ED: Denies ear pain Cardiovascular Cardiovascular: Denies chest pain Respiratory/Chest Respiratory/Chest: Denies cough Gastrointestinal Gastrointestinal: Denies abdominal pain Genitourinary Genitourinary ED: Denies dysuria Musculoskeletal Musculoskeletal: Denies arthralgias Integumentary Denies abscess Neurologic Neurologic: Denies paresthesias Psychiatric Psychiatric: Denies anxiety Endocrine Endocrinology: Denies cold intolerance Hematologic/Lymphatic Hematologic/Lymphatic: Reports none Allergic/Immunologic Allergic/Immunologic ED: Denies mouth swelling, tongue swelling or urticaria EXAM Physical Exam Narrative Exam Narrative: Well-appearing 34-year-old female. Vital signs are stable blood pressure is elevated at 140/113. She does not look septic toxic any distress. H EENT exam unremarkable. No facial droop. Normal speech. Lungs clear. Heart regular rhythm rate about 75 no murmur. Chest wall nontender. Abdomen soft nontender. Moving all 4 extremities. 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 Dorsi plantarflexion intact. Nontender no edema. She is awake and alert. Answer questions following commands. Const Vital Signs: 07/27/24 14:36 07/27/24 14:56 07/27/24 15:02 Temperature 97.5 F L Temperature Source Temporal Pulse Rate 103 H 83 Respiratory Rate 16 16 Respiratory Effort Normal Respiratory Pattern Normal Blood Pressure 140/113 H 167/116 H Blood Pressure Mean 122 133 Pulse Ox 100 100 Oxygen Delivery Method Room Air Room Air 07/27/24 15:53 Temperature 97.7 F L Temperature Source Pulse Rate 74 Respiratory Rate 14 Respiratory Effort Respiratory Pattern Blood Pressure 156/107 H Blood Pressure Mean 123 Pulse Ox 99 Oxygen Delivery Method Positive well nourished and well developed; Negative for cachectic, contractures or unkempt General Appearance ED: well developed and NAD; Negative for unkempt, cachectic, contractures, cyanotic, diaphoretic or pallor Nutritional Appearance: Negative for cachectic HEENT Reports moist mucous membranes Negative for trauma or tenderness Eyes PERRL and EOMs intact bilaterally General Eye ED: Negative for pale conjunctiva or scleral icterus Neck no lymphadenopathy, supple and no JVD Lymph Lymphatic: Negative for other Chest Wall inspection of chest normal and palpation of chest normal Chest: Negative for other Resp normal respiratory effort and clear to auscultation bilaterally Effort and Inspection: Negative for retractions Auscultation: Negative for rales, rhonchi, wheezes or diminished lung sounds Cardio regular rate, regular rhythm, S1 normal heart sound, S2 normal heart sound and n o murmurs Palpation: Negative for palpable S3 or palpable S4 Rate: Negative for bradycardia or tachycardic Rhythm: Negative for abnormal rhythm GI normal to inspection, nondistended, normoactive bowel sounds, non-tender, non- distended and no masses Inspection: Negative for abdominal distention Auscultation: normoactive bowel sounds Palpation: soft; Negative for tender, guarding, mass or rebound tenderness present Back/Spine no CVA tenderness General Back: Negative for CVA tenderness Cervical Spine: Negative for cervical spine tenderness Thoracic Spine / Upper Back: Negative for thoracic spinal tenderness or paraspinal muscle tenderness Lumbar Spine / Lower Back: Negative for lumbar spinal tenderness Extremity normal to inspection General Extremety ED: Negative for edema or tenderness General Extremity: Negative for edema Neuro oriented x3 and CN's II-XII intact bilaterally Sensorium / Orientation: alert and orientation impaired; Negative for lethargic or stuporous Motor Exam: strength 5/5 throughout; Negative for general weakness or strength abnormal Psych mental status grossly normal Appearance: Negative for unkempt or other Attitude: No agitated Mood & Affect: Negative for depressed, anxious or tearful Skin no rashes or lesions noted and no wounds General Skin Exam: Negative for jaundice or pallor Lesions: No lesion noted Rashes: No rashes noted Trauma: Negative for abrasion Wounds: Negative for wounds noted MDM MDM MDM Narrative Medical decision making narrative: 34-year-old female acute on chronic hypertension. She and I discussed options. She is only been on the medication 2 days as to her related stop the medication and I do not think we need to adjust the dose yet. She will log her blood pressures this week. She has an appointment to see her primary care physician this coming Monday. And they will discuss at that time if they need to make any adjustments to her blood pressure medication of the dose. History & Record Review Discussion w/independent historian: Patient Additional record(s) reviewed:: Prior inpatient record, Prior outpatient record, Prior ED visit and Prior labs Discharge Plan Triage Chief Complaint: Hypertension ED Provider: Raúl Hastings Dx/Rx/DC Orders Clinical Impression: Essential hypertension Instructions: Controlling High Blood Pressure, ED High Blood Pressure Hypertension Prescriptions: No Action fluticasone propionate [Allergy Relief (fluticasone)] 50 mcg/actuation spray,suspension 2 spray intranasal DAILY Rx Instructions: administer into each nostril rizatriptan 10 mg tablet,disintegrating See Rx Instructions PO .COMPLEX PRN Rx Instructions: take 1 tab at onset of headache; if no relief may repeat 1 tab after at least 2 hrs; max = 3 tabs/24 hr orally PRN; nicotine 21 mg/24 hr patch 24 hour 1 patch transdermal DAILY Qty: 28 0RF losartan 25 mg tablet 25 mg PO DAILY Qty: 30 0RF escitalopram oxalate [Lexapro] 10 mg tablet 10 mg PO DAILY Qty: 90 1RF dextroamphetamine-amphetamine 15 mg capsule,extended release 24hr 15 mg PO DAILY 30 Days Qty: 30 0RF Nurtec ODT 75 mg tablet,disintegrating 75 mg PO Q OTHER DAY Qty: 15 2RF Rx Instructions: as a single dose Primary Care Provider: Ellen Syed Referrals: Ellen Syed MD [Primary Care Provider] - 1 Week Activity Restrictions/Additional Instructions: Take your blood pressure medication as you have been All your blood pressures at least twice daily in the morning and in the evening. Save those in show this is your primary care provider. If it is not improving we may have to adjust the medication dose or change it. It seems too early since she is only taken the medication the last 2 days to make any changes at this time.. Print Language: Chadian Disposition Disposition: Home, Self Care
== END 2024-07-27 16:06 | disposition home or self-care (01) ==
LOC: ED 16:01
PROVIDERS: Emergency Provider Emergency Medicine; PCP Internal Medicine; Visit Provider Emergency Medicine
DX: I10 Essential (primary) hypertension (principal); J45.909 Unspecified asthma, uncomplicated; Z79.51 Long term (current) use of inhaled steroids; Z79.899 Other long term (current) drug therapy; F32.A Depression, unspecified; F41.9 Anxiety disorder, unspecified; F17.220 Nicotine dependence, chewing tobacco, uncomplicated
CPT/HCPCS: 99282

== ENCOUNTER → 2025-04-25 | Outpatient (CLI) | payer OTHER, SELFPAY ==
[2025-04-25 15:35] LABS: Absolute Lymphocyte Count 0.71 X10^3/uL (0.83-4.51); Absolute Neutrophil Count 4.4 X10^3/uL (2.0-7.7); Basophil# 0.03 X10^3/uL; Basophil% 0.6 % (0-1); Eosinophil# 0.04 X10^3/uL; Eosinophils% 0.7 % (0-5); Hematocrit 45.5 % (37-47); Hemoglobin 15.6 g/dL (12.0-15.0); Lymphocyte # 0.71 X10^3/ul (0.83-4.51); Lymphocyte % 13.1 % (19-41); Mean Corp Hgb Conc 34.3 g/dL (32-36); Mean Corpuscular Volume 93.2 fL (81-99); Monocyte# 0.17 X10^3/uL; Monocyte% 3.1 % (0-10); NRBC Flagged by Analyzer 0 % (0-5); Neutrophil # 4.44 X10^3/uL (2.7-7.7); Neutrophil % 82.3 % (47-70); POSITIVE COUNT YES; RBC Distribution Width CV 11.9 % (11.6-14.6); RBC Distribution Width SD 40.5 fl (35.1-43.9); Red Blood Count 4.88 M/mm3 (4.2-5.4); White Blood Count 5.4 K/mm3 (4.4-11.0)
[2025-04-25 17:19] LABS: Erythrocyte Sedimentation Rate 11 mm/hr (0-30)
[2025-04-25 17:43] LABS: ALB/GLOB Ratio 1.3 RATIO (0.9-2.4); AST(SGOT) 45 U/L (<=31); Alanine Aminotransfer ALT/SGPT 43 U/L (<=34); Albumin, Serum 4.4 g/dL (3.5-5.0); Alkaline Phosphatase 77 U/L (35-104); Anion Gap 17 (5-15); BUN 5 mg/dL (4-19); BUN/Creat Ratio 7.1 RATIO (10-20); Calcium,Total 9.2 mg/dL (7.6-11.0); Chloride 96 mmol/L (98-108); Creatinine, Serum 0.71 mg/dL (0.70-1.20); EST Glomerular Filtration Rate 113 (>60); Globulin 3.3 g/dL (2.2-4.2); Glucose 150 mg/dL (70-99); Potassium 3.8 mmol/L (3.3-5.1); Protein, Total 7.7 g/dL (5.9-8.4); Sodium Level 131 mmol/L (133-145); Total Bilirubin 0.55 mg/dL (0.00-1.30)
[2025-04-25 19:31] LABS: Platelet Estimate ADEQUATE (ADEQ)
[2025-04-25 19:32] LABS: Differential Comment SCANNED
[2025-04-28 16:08] LABS: ANTINUCLEAR ANTIBODIES DIRECT Negative (Negative)
[2025-04-30 17:08] LABS: Lyme IgG P18 Ab Absent (.); Lyme IgG P23 Ab Absent (.); Lyme IgG P28 Ab Absent (.); Lyme IgG P30 Ab Absent (.); Lyme IgG P39 Ab Absent (.); Lyme IgG P41 Ab Present (.); Lyme IgG P45 Ab Absent (.); Lyme IgG P58 Ab Present (.); Lyme IgG P66 Ab Absent (.); Lyme IgG P93 Ab Absent (.); Lyme IgG WB Interpretation Negative (Negative); Lyme IgM P23 Ab Present (.); Lyme IgM P39 Ab Present (.); Lyme IgM P41 Ab Present (.); Lyme IgM WB Interpretation Positive (Negative)
== END | disposition home or self-care (01) ==
LOC: BIMLAB 14:03 → LAB 14:34
PROVIDERS: PCP Internal Medicine; Referring Provider Physician Assistant; Visit Provider Physician Assistant
DX: R50.9 Fever, unspecified (principal); M25.50 Pain in unspecified joint; R21 Rash and other nonspecific skin eruption; M79.10 Myalgia, unspecified site
CPT/HCPCS: 36415; 80053; 84443; 85025; 85652; 86038; 86140; 86225; 86617